=== PATIENT | female | born 1990 | race Caucasian/White ===

== ENCOUNTER 2022-01-01 18:55 | Inpatient (IN) | payer MEDICAID, SELFPAY ==
--- NOTE | 2022-01-01 19:18 | HP.PCM.OB_ITS ---
HPI - General General Date of Admission: 01/01/22 HPI Narrative LANA SALGUERO, is a 31 F at 38.5 weeks gestation who presents for induction of labor for IUGR. EFW 6%, BLAINE normal. complicated by transfer of care at 36 weeks gestation and bilobed placenta with possible chakraborty mentous insertion seen via ultrasound. Maternal Data Information SUDEEP Calculator Estimated Delivery Date Method Current WG Current Estimate 01/10/22 Manual 38w 5d PFSH PFSH Social History Smoking Status: Former smoker ROS Eyes Eyes: Denies blurry vision, change in vision or spots in vision ENT HEENT: Denies dizziness or headache(s) Cardiovascular Cardiovascular: Denies abdominal pain, chest pain or dyspnea Respiratory/Chest Respiratory/Chest: Denies cough, dyspnea, shortness of breath at rest or shortness of breath with exertion Gastrointestinal Gastrointestinal: Denies abdominal pain, diarrhea or vomiting Genitourinary Genitourinary: Denies change in urinary stream, difficulty urinating or dysuria Musculoskeletal Musculoskeletal: Reports none Integumentary Integumentary: Denies rash Neurologic Neurologic: Denies dizziness, headache(s), memory loss or weakness Psychiatric Psychiatric: Reports none Physical Exam Const alert, oriented x3 and no apparent distress General Appearance: cooperative Orientation / Consciousness: awake Exam Limitations: no limitations HEENT normocephalic Head and Scalp: normal to inspection Eyes General Eye: normal appearance of both eyes Neck full ROM and no lymphadenopathy Lymph Lymphatic: no lymphadenopathy noted Chest inspection of chest normal Resp normal respiratory effort, normal air movement and clear to auscultation bilaterally Effort and Inspection: able to speak in complete sentences and symmetric chest movement Cardio regular rate and regular rhythm GI normal to inspection, nondistended, normoactive bowel sounds Manual OB Exam: presentation cephalic Back/Spine normal ROM Extremity full ROM and no calf tenderness Skin no rashes or lesions noted General Skin Exam: no breakdown Neuro oriented x3 and CN's II-XII intact bilaterally Psych mental status grossly normal and thought process normal Labs Labs Labs: Chlamydia DNA (CHON) Negative (Negative-) Neisseria gonorrhoeae DNA (CHON) Negative (Negative-) O negative Rubella immune HB neg HC neg GBS negative HIV NR Assessment & Plan (1) 38 weeks gestation of : (2) Encounter for induction of labor: (3) IUGR (intrauterine growth restriction): (4) Bilobed placenta: (5) Velamentous insertion of umbilical cord: PLAN: Plan Admit to labor and delivery Cytotec PO every 4 hours Routine labs Start IV fluid and titrate per orders GBS negative Dr. Ghotra notified of admission and is collaborating physician
[2022-01-01 19:43] VITALS: TEMP 36.7
[2022-01-01 19:44] VITALS: BP 118/76; PULSE 81
[2022-01-01] MEDS: Lactated Ringers 1,000 ML 50 ML IV (20:15)
[2022-01-01 20:27] VITALS: BMI 28.1
[2022-01-01 20:35] LABS: Absolute Lymphocyte Count 1.44 X10^3/uL (0.83-4.51); Absolute Neutrophil Count 6.9 X10^3/uL (2.0-7.7); Basophil# 0.02 X10^3/uL; Basophil% 0.2 % (0-1); Eosinophils% 1.1 % (0-5); Hemoglobin 11.5 g/dL (12.0-15.0); Lymphocyte # 1.44 X10^3/ul (0.83-4.51); Lymphocyte % 15.2 % (19-41); Mean Corp Hgb Conc 33.8 g/dL (32-36); Mean Corpuscular Volume 97.4 fL (81-99); Mean Platelet Vol. 11.5 fl (6.2-12.0); Monocyte# 0.95 X10^3/uL; NRBC Flagged by Analyzer 0 % (0-5); Neutrophil # 6.91 X10^3/uL (2.7-7.7); Neutrophil % 73.1 % (47-70); Platelet Count 222 K/mm3 (150-450); RBC Distribution Width SD 45.8 fl (35.1-43.9); Red Blood Count 3.49 M/mm3 (4.2-5.4); White Blood Count 9.5 K/mm3 (4.4-11.0)
[2022-01-01 21:24] VITALS: BP 120/73; PULSE 74; TEMP 36.8; O2SAT 98
[2022-01-01] MEDS: miSOPROStol 25 MCG TABLET PO (21:34)
[2022-01-01] MEDS: Mag Hydrox/Al Hydrox/Simeth 30 ML UDC PO (23:20)
[2022-01-02] VITALS (56 sets, daily range): BP systolic 106–154; BP diastolic 53–110; PULSE 61–100; TEMP 36–38.2; O2SAT 97–100
[2022-01-02] MEDS: miSOPROStol 25 MCG TABLET PO ×2 (01:38→05:51)
[2022-01-02] MEDS: Acetaminophen 500 MG Tablet PO ×2 (06:56→20:47)
[2022-01-02] MEDS: 0.9% Normal Saline Single 100 ML IV.SOLN. INTRA-UTER (07:20)
[2022-01-02] MEDS: 0.9% Saline Lock 10 ML Syringe IV (10:09)
[2022-01-02] MEDS: Oxytocin 30 units/NS 500 ml 30 UNITS/500 ML IV.SOLN IV (10:12)
[2022-01-02] MEDS: fentaNYL 100 MCG/2 ML Ampul IV (14:52)
[2022-01-02] MEDS: LACTATED RINGERS 500 ML 999 ML IV ×2 (15:43→18:21)
[2022-01-02] MEDS: fentaNYL-bupivacaine (epidural) 100 ML BAG EPIDURAL ×2 (16:36→20:52)
[2022-01-02] MEDS: Lactated Ringers 1,000 ML 200 ML IV (17:45)
[2022-01-02] MEDS: DiphenhydrAMINE 50 MG/ML Syringe 25 MG IV (20:50)
[2022-01-02] MEDS: Mag Hydrox/Al Hydrox/Simeth 30 ML UDC PO (21:16)
[2022-01-03] VITALS (33 sets, daily range): BP systolic 102–119; BP diastolic 53–74; PULSE 77–108; RESP 16–18; TEMP 36.9–38.9; O2SAT 97–99
--- NOTE | 2022-01-03 | PLAC_PTH ---
PATIENT: LANA SALGUERO LOC: [facility] U#:[id number] AGE/SX: 31/F ROOM: [facility] RE01/01/[address]: Pamela Barrios CNM : 1990 BED: 1 DIS: 01/04/2022 SPEC #: [id number] RECD: 01/03/22 04:45 STATUS: GARY JAGDISH #: [id number] JUAN: 01/03/22 00:[address]: Pamela Barrios DEPT: SURGICAL PATHOLOGY RECD BY: Alexander Geronimo Tissues: Placenta, NOS Procedures: Surgery Specimen Level V HEADER OPERATION: Vaginal delivery PRE-OP DIAGNOSIS: Labor TISSUE SUBMITTED: Placenta MICROSCOPIC DIAGNOSIS Placenta: Placental disc - third trimester placenta (285 gm). - Focal acute vasculitis of subamniotic blood vessels. Membranes ? acute chorioamnionitis. Umbilical cord - three blood vessels and focal minimal acute funisitis. - Marginal insertion. SJ:mouna 01/04/2022 MICROSCOPIC DESCRIPTION Slides are reviewed. GROSS DESCRIPTION SPECIMEN: PLACENTA / CLINICAL INFORMATION: A. Weight: 2.335 kg B. Gestational Age: 39 weeks C. Sex: Female PLACENTAL WEIGHT (POST FIXATION): 285 gm PLACENTAL DIMENSIONS: 17 x 13 x 2.5 cm PLACENTAL SHAPE: Usual ovoid PLACENTAL WEIGHT FOR GESTATIONAL AGE: <10th percentile MEMBRANES - Present A. Insertion: Marginal B. Site of rupture from edge: At edge of placental disc C. Color of membrane: Cheema-mcduffie D. Abnormalities: None UMBILICAL CORD - Present A. Color: Cheema-mcduffie B. Insertion: Marginal C. Length: 18 cm D. Diameter: 1.2 cm E. Number of vessels: Three F. Abnormalities: None PLACENTAL DISC - Present A. Color of surface: Cheema-mcduffie B. surface abnormalities: None C. Maternal cotyledons: Intact with minimal tears D. Attached retro placental clot: No clot E. Cut surface: Dark red and spongy F. Lesions: None G. Separate clot: Absent SECTIONS SUBMITTED: 1. Umbilical cord ( end notched) 2. Umbilical cord, placental end 3. Membrane roll 4. Placental disc, and maternal surfaces 5. Placental disc, and maternal surfaces 6. Placental disc, and maternal surfaces AM:mouna 01/03/2022 TC:2 CPT: 26161
[2022-01-03] MEDS: Ondansetron 4 MG/2 ML Vial IV (01:14)
[2022-01-03] MEDS: Lactated Ringers 1,000 ML 200 ML IV (01:14)
[2022-01-03] MEDS: Oxytocin 30 units/NS 500 ml 30 UNITS/500 ML IV.SOLN 334 UNITS IV (02:05)
--- NOTE | 2022-01-03 02:30 | OP.PCM_ITS ---
Assessment & Plan (1) 38 weeks gestation of : (2) Vacuum-assisted vaginal delivery: (3) Maternal exhaustion complicating labor and delivery: (4) Second degree perineal laceration: Maternal Data Information SUDEEP Calculator Estimated Delivery Date Method Current WG Current Estimate 01/10/22 Manual 39w 0d Final SUDEEP: 01/10/22 Gestational age: 39 0/7 Vaginal Delivery Maternal Presentation Maternal Presentation: Medically Indicated Induction Type of Induction: Pitocin, Streeter Bulb, Amniotomy and Cytotec Medical Reason for Induction: - (suspected IUGR) Operative Information Date of Procedure: 01/03/22 Pre-Operative Diagnosis: maternal exhuastion Post-Operative Diagnosis: same Surgery / Procedure Performed: Vacuum Assisted Vaginal Delivery (low) Type of Anesthesia: Epidural Special Medications: none Drain: - (none) Estimated Blood Loss: 300 Time of Delivery: 02:03 Findings Description of Procedure: The patient was complete and pushing for almost 4 hours. Her contractions became an adequate and very spaced out when her IV infiltrated and Pitocin had to be stopped. IV was eventually restarted. Patient was giving good maternal pushing efforts at the beginning of pushing but towards the end they were inadequate because of complete exhaustion. The position was ADORE. Station was plus 4 out of 5. There is small amount of caput. Estimated weight was less than 3000 g by ultrasound. Pelvis was clinically adequate. Epidural was adequate. Streeter catheter had been removed at the beginning of pushing. Patient was expelling some urine during pushing. I discussed with the patient option of versus trial of low vacuum-assisted vaginal delivery. Patient and partner agreed to proceed with attempted vacuum. The vacuum was placed on the flexion point and vacuum created 550 mmHg. I pulled with 1 pull with 1 contraction and the vacuum was removed with no pop offs. The remainder the head was delivered with maternal pushing efforts only. The remainder the infant was delivered in less than 15 seconds without any significant traction. A vigorous female was delivered ADORE over a second-degree perineal laceration. T he Pitocin infusion was initiated for active management of the third stage. The cord was clamped and cut after 1 minute. The infant was attended to by the waiting nursing staff. The placenta was delivered spontaneously and intact. The cervix and vagina were intact. The second-degree perineal laceration was repaired with 2-0 Vicryl suture in a running standard fashion. Sponge and needle counts were correct. A vaginal sweep was completed by me. Presentation: ADORE Amniotic Membrane Rupture Type: Artificial Amniotic Fluid Description: Clear Placental Delivery Description: Spontaneous Placenta Disposition: Sent to Pathology Cord Vessel Description: 3 Vessels Cord Entanglement: None Cord Gases: ABG and VBG Infant A Gender: Female (Preet- placenta w/ accessory lobe, marginal cord insertion) (1 minute): 9 (5 minute): 9 Delayed Cord Clamping: Yes Post Vaginal Delivery Medications Given After Delivery: IV Pitocin Episiotomy Description: None Laceration: 2nd degree Complication Complications: None Admit VTE Documentation VTE Present on Admission: No VTE Pharm Prophylaxis Ordered: No Reason Prophylaxis Not Ordered: Procedure Not Indicated
[2022-01-03] MEDS: Ibuprofen 600 MG Tablet PO ×3 (03:36→18:35)
[2022-01-03] MEDS: Benzocaine/Lanolin/Aloe Vera 1 SPRAY EACH TOPICAL (03:37)
[2022-01-03 04:56] LABS: Pathology Specimen OB SEE PATHOLOGY REPORT
[2022-01-03] MEDS: Acetaminophen 500 MG Tablet 1000 MG PO ×2 (12:36→18:35)
[2022-01-04] MEDS: Ibuprofen 600 MG Tablet PO ×2 (01:10→07:42)
[2022-01-04] MEDS: Acetaminophen 500 MG Tablet 1000 MG PO ×2 (01:10→07:42)
[2022-01-04 01:18] VITALS: BP 109/64; PULSE 78; RESP 18; TEMP 36.9; O2SAT 98
--- NOTE | 2022-01-04 07:20 | NURSING ---
bedside report given to Regan Ballesteros RN and Javi Lopez RN who are assuming care of pt at this time
[2022-01-04 08:54] VITALS: BP 102/67; PULSE 81; RESP 18; TEMP 36.6; O2SAT 94
--- NOTE | 2022-01-04 12:40 | PCM.PN.OB ---
Subjective Subjective Denies complaints Objective Data Objective Data Vital Signs: Vital Signs Temp Pulse Resp BP Pulse Ox O2 Del Method 97.8 F 81 18 102/67 94 Room Air 01/04/22 08:54 01/04/22 08:54 01/04/22 08:54 01/04/22 08:54 01/04/22 08:54 01/04/22 08:54 Oxygen Delivery Method Room Air Weight: 158 lb 12.8 oz Body Mass Index (BMI) 28.1 Intake & Output: Intake and Output for Last 24 Hours 01/02/22 01/03/22 01/04/22 23:59 23:59 23:59 Intake Total 2594.73 / 2594.73 746.75 / 746.75 Output Total 600 / 600 200 / 200 Balance 1994.73 / 1993.73 546.75 / 546.75 Lab / Micro Data Result Diagrams: 01/01/22 20:15 Micro: Microbiology 01/01/22 20:15 Nasal Secretion SARS-CoV-2 Antigen (Rapid) - Final Physical Exam Const alert, oriented x3 and no apparent distress HEENT normocephalic GI soft to palpation, non-tender and non-distended GI Narrative: fundus firm, mid & below umbilicus Extremity normal to inspection and no calf tenderness Assessment & Plan (1) Vacuum-assisted vaginal delivery: COMMENT: PPD#2 PLAN: D/c home
--- NOTE | 2022-01-04 12:41 | DCINST_ITS ---
Discharge Instructions Diet Discharge Diet: No restrictions Activity Discharge Activity: May Shower May resume sexual activity in: 6 weeks Weight Bearing Status: Weight bearing as tolerated Dressing / Incision Call your doctor if you observe: Fever of 101 or Higher, Coldness, Increased Pain, Change in Color, Inability to urinate, Inability to have a bowel movement, Using more than 1 pad per hour, Shortness of breath, Dizziness, Fainting spells, Chest pain, Increased palpitations (irregular heartbeat), Calf discomfort and Uncontrolled pain Follow Up Care Please Follow Up With: Arsh Gutierres MD When: Follow up in 2 and 6 weeks for visits. Test Results: Test results from this visit will be discussed in further detail at your follow- up appointment, if applicable. Discharge Plan Admission Admit Date/Time: 01/01/22 18:55 Primary Reason for Your Visit: Vaginal delivery Attending Provider: Pamela Barrios Discharge Orders/Prescriptions Prescriptions: New acetaminophen 500 mg Tablet 1,000 mg PO Q6H PRN PRN (Reason: Pain 1-10 Or Fever) Qty: 0 0RF ibuprofen 600 mg Tablet 600 mg PO Q6H PRN PRN (Reason: Pain Score 1-3) Qty: 0 0RF Continued [id number] 1 mg Tablet 1 tab PO DAILY Disposition Disposition (needs filled in before D/C Order can be placed): Home, Self Care
[2022-01-04 13:52] VITALS: BP 122/76; PULSE 87; RESP 16; TEMP 36.7; O2SAT 98
== END 2022-01-04 14:20 | disposition home or self-care (01) | DRG 560 ==
PROVIDERS: Admitting Provider Advanced Practice Midwife; Visit Provider Advanced Practice Midwife
DX: O36.5930 Maternal care for other known or suspected poor fetal growth, third trimester, not applicable or unspecified (principal); Z37.0 Single live birth; O43.123 Velamentous insertion of umbilical cord, third trimester; O43.193 Other malformation of placenta, third trimester; O70.1 Second degree perineal laceration during delivery; O75.81 Maternal exhaustion complicating labor and delivery; Z3A.38 38 weeks gestation of pregnancy; Z87.891 Personal history of nicotine dependence; Z28.310 Unvaccinated for COVID-19; Z28.9 Immunization not carried out for unspecified reason
CPT/HCPCS: 59025; 59050; 85025; 85461; 86850; 86900; 86901; 87426; 88307; 90384; 99218; 99406; J7120; A4216; G0378; J2405; J2790

== ENCOUNTER 2025-03-27 19:38 | Emergency (ER) | payer MEDICAID, SELFPAY ==
[2025-03-27 19:38] VITALS: BP 111/77; PULSE 64; RESP 14; TEMP 36.8; O2SAT 100; BMI 22.5
--- NOTE | 2025-03-27 20:00 | US_ITS ---
PROCEDURE: TRANSVAGINAL W/PREG US 03/27/2025 REASON FOR EXAM: VAG BLEEDING, PREG 12 WEEKS TECHNIQUE: Procedure Code: [id number] Modality: US Procedure: TRANSVAGINAL W/PREG US COMPARISON: None available. FINDINGS The uterus measures 11.4 x 9.0 x 7.0 cm. A gestational sac is identified within the uterus. The mean sac diameter measures 5.7 cm and corresponds to a gestational age of 11 weeks 5 days. Within this gestational sac, a pole and yolk sac are identified. The crown rump length measures 28 mm and corresponds to a gestational age of 9 weeks 3 days. Real-time examination could not detect any cardiac activity. The right ovary measures 2.8 x 2.2 x 2.0 cm and the left ovary measures 1.9 x 1.6 x 1.3 cm. Right ovarian cyst measures 1.9 x 2.1 x 1.2 cm. No adnexal masses are seen. There is no fluid in the cul-de-sac. US/Transvaginal w/Preg US IMPRESSION: Intrauterine gestation with mean sac diameter corresponding to a gestational ag e of 11 weeks 5 days and a pole corresponding to a gestational age of 9 weeks 3 days. No cardiac activity could be detected. Findings are diagnostic of failure. Reading [facility]
[2025-03-27 20:17] LABS: Hematocrit 33.8 % (37-47); Hemoglobin 11.2 g/dL (12.0-15.0); Immature Granulocytes Count 0.020 X10^3/uL (0.0-0.0); Mean Corp Hgb Conc 33.1 g/dL (32-36); Mean Corpuscular Volume 92.6 fL (81-99); Mean Platelet Vol. 10.1 fl (6.2-12.0); NRBC Flagged by Analyzer 0 % (0-5); Platelet Count 259 K/mm3 (150-450); RBC Distribution Width CV 12.4 % (11.6-14.6); RBC Distribution Width SD 42.5 fl (35.1-43.9); Red Blood Count 3.65 M/mm3 (4.2-5.4); White Blood Count 8.9 K/mm3 (4.4-11.0)
[2025-03-27 20:27] LABS: Mucous, Urine 0 SEEN /hpf (<or=2+)
--- OUTSIDE RECORDS SUMMARY | 2025-03-27 20:30 | XMS RPT_ITS | CCD ---
Author Organization [facility] Care Team Providers Care Event Coordinator Marketing And Sales Name Role Phone Unavailable Primary Care Provider ANT Gastelum Attending Unavailable Unavailable Primary Care Provider Pamela Morrow Attending Unavailable Pamela Barrios Admitting Unavailable Unavailable Primary Care Provider LUIS Taylor Referring Unavailable PAUL QUEZADA Attending Unavailable PAMELA BARRIOS Attending Unavailable JOETSPAMELA Referring Unavailable HAURY, LUIS Attending Unavailable HASANGEETA, LUIS Referring Unavailable HAURY, LUIS Referring Unavailable HAURY, LUIS Referring Unavailable HAURY, LUIS Referring Unavailable HAURY, LUIS Referring Unavailable Medications Current Medications Medication Drug Class(es) Dates Sig (Normalized) Sig (Original) acetaminophen 500 mg oral tablet (15 sources) Start: 01-04-2022 take 1000 mg by mouth every six hours as needed Acetaminophen Active 1000 MG PO EVERY 6 HOURS NEEDED 0 January 04, 2022 12:00am End: 01-27-2024 acetaminophen (TYLENOL ORAL) Take by mouth. 01/27/2024 Discontinued acetaminophen (T YLENOL ORAL) Take by mouth. 0 Active Comment on above: Take by mouth. aspirin 81 mg delayed release oral tablet (7 sources) Platelet Aggregation Inhibitor, Nonsteroidal Anti-inflammatory Drug Start: 04-06-20 End: 04-06-20 24 take 1 tablet by mouth once daily for depression aspirin, enteric coated (ECOTRIN LOW STRENGTH) 81 mg EC tablet Indications: Encounter for supervision of high risk in first trimester, antepartum , with uncertain dates in first trimester , History of intrauterine growth restriction in prior , currently , History of depression Take 1 tablet by mouth once daily. 90 tablet 3 04/06/2024 Active ibuprofen 600 mg oral tablet (1 source) Nonsteroidal Anti-inflammatory Drug Start: 01-05-20 take 600 mg by mouth every six hours as needed Ibuprofen Active 600 MG PO EVERY 6 HOURS NEEDED 0 January 04, 2022 12:00am Bzlngabz-Cab-Hg-Fa (1 source) Start: 01-02-20 take 1 tablet by mouth once daily Zphoferk-Vya-Ey-Fa Active 1 TABLET PO DAILY January 01, 2022 12:00am vit/iron fum/folic ac ( 1 + 1 ORAL) (6 sources) vit/iro n fum/folic ac ( 1 + 1 ORAL) Active Completed/Discontinued Medications Medication Drug Class(es) Dates Sig (Normalized) Sig (Original) azelastine hydrochloride 0.137 mg/actuat metered dose nasal spray (6 sources) Histamine-1 Receptor Antagonist Start: 02-10-2024 End: 04-23-2024 take 2 spray(s) nasal route twice daily azelastine 0.1% nasal spray instill 2 sprays into each nostril twice a day 02/10/2024 04/23/2024 Discontinued estradiol 0.1 mg/ml vaginal cream (12 sources) Estrogen Start: 02-13-2022 End: 01-27-2024 estradiol (ESTRACE) 0.01 % (0.1 mg/gram) vaginal cream apply 1/4 inch of cream to vaginal introitus qhs for 12 weeks 42.5 g 02/13/2022 01/27/2024 Discontinued Comment on above: apply 1/4 inch of cr eam to vaginal introitus qhs for 12 weeks ketotifen 0.25 mg/ml ophthalmic solution (6 sources) Histamine-1 Receptor Inhibitor Start: 02-10-2024 End: 04-23-2024 take 1 drop(s) into the eye(s) twice daily ZADITOR 0.025 % (0.035 %) ophthalmic solution instill 1 drop INTO AFFECTED EYE(S) twice a day if needed for allergies 02/10/2024 04/23/2024 Discontinued levocetirizine dihydrochloride 5 mg oral tablet (6 sources) Histamine-1 Receptor Antagonist Start: 02-10-2024 End: 04-23-2024 take 1 tablet by mouth once daily in the evening levocetirizine 5 mg tablet take 1 tablet by mouth once daily every evening 02/10/2024 04/23/2024 Discontinued lidocaine 25 mg/ml / prilocaine 25 mg/ml topical cream (3 sources) Antiarrhythmic, Amide Local Anesthetic Start: 05-10-2022 End: 01-27-2024 lidocaine-prilocain e (EMLA) 2.5-2.5 % cream Indications: Second degree perineal laceration during delivery , Perineal discomfort in female Apply to affected area as needed. 30 g 1 05/10/2022 01/27/2024 Discontinued Comment on above: Apply to affected ar ea as needed. Loratadine (20 sources) End: 01-27-2024 loratadine (CLARITIN ORAL) Take by mouth. 01/27/2024 Discontinued loratadine (CLAR ITIN ORAL) Take by mouth. 0 Active Comment on above: Take by mouth. norethindrone 0.35 mg oral tablet (14 sources) Start: 02-13-2022 End: 01-27-2024 take 1 tablet by mouth once daily Norethindrone, Contraceptive, (ORTHO MICRONOR) 0.35 mg tablet Take 1 tablet by mouth once daily. 28 tablet 1 04/26/2022 01/27/2024 Discontinued Comment on above: Take 1 tablet by steven th once daily. prental multivitamin 27 mg iron- 800 mcg tablet (20 sources) End: 01-27-2024 take 1 tablet by mouth once daily prental multivitamin 27 mg iron- 800 mcg tablet Take 1 tablet by mouth once daily. 01/27/2024 Discontinued take 1 tablet by mouth once mindy y prental multivitamin 27 mg iron- 800 mcg tablet Take 1 tablet by mouth once daily. 0 Active Comment on above: Take 1 tablet by steven th once daily. Problems Active Problems Problem Classification Problem Date Documented Date Episodic/Chronic Abdominal pain (1 source) Vaginal pain; Translations: [Pelvic and perineal pain] Episodic Allergic reactions (7 sources) H/O: non-drug allergy; Translations: [Other allergy status, other than to drugs and biological substances] Onset: 04-06-2024 04-06-2024 Episodic Immunizations and screening for infectious disease (2 sources) Patient encounter status; Translations: [Encounter for screening for human papillomavirus (HPV)] Onset: 03-03-2025 01-27-2024 Episodic OB-related trauma to perineum and vulva (2 sources) Second degree perineal laceration; Translations: [Second degree perineal laceration during delivery] Episodic Other complications of ; puerperium affecting management of mother (1 source) Complication occurring during labor and delivery; Translations: [Maternal exhaustion complicating labor and delivery] Episodic Other complications of ; puerperium affecting management of mother (1 source) Maternal exhaustion complicating labor and delivery; Translations: [Other complications of labor and delivery, unspecified as to episode of care or not applicable] Episodic Other complications of (2 sources) Abnormal placenta affecting management of mother; Translations: [Other malformation of placenta, third trimester] Episodic Other complications of (2 sources) Other malformation of placenta, unspecified trimester; Translations: [Bilobed placenta] Episodic Other complications of (1 source) Vacuum assisted vaginal delivery; Translations: [Outcome of delivery, unspecified] Episodic Other complications of (1 source) Outcome of delivery, unspecified; Translations: [Forceps or vacuum extractor delivery without mention of indication, delivered, with or without mention of antepartum condition] Episodic Other complications of (8 sources) Vomiting of , unspecified; Translations: [Unspecified vomiting of , unspecified as to episode of care or not applicable] Onset: 04-06-2024 Resolved: 04-23-2024 04-06-2024 Episodic Other complications of (1 source) Uncertain viability of ; Translations: [ with inconclusive viability, not applicable or unspecified] 04-17-2024 Episodic Other female genital disorders (7 sources) Lesion of vulva; Translations: [Other specified noninflammatory disorders of vulva and perineum] Onset: 04-06-2024 04-06-2024 Episodic Other and delivery including normal (20 sources) ; Translations: [Encounter for supervision of normal , unspecified, unspecified trimester] Onset: 12-14-2021 Resolved: 04-23-2024 Episodic Other screening for suspected conditions (not mental disorders or infectious disease) (1 source) Cancer cervix screening status; Translations: [Encounter for screening for malignant neoplasm of cervix] 01-27-2024 Episodic Other skin disorders (4 sources) Finding of pelvic region of trunk; Translations: [Granulomatous disorder of the skin and subcutaneous tissue, unspecified] Episodic Residual codes; unclassified (2 sources) Gestation period, 36 weeks; Translations: [36 weeks gestation of ] Episodic Residual codes; unclassified (2 sources) Gestation period, 38 weeks; Translations: [38 weeks gestation of ] Episodic Residual codes; unclassified (1 source) 38 weeks gestation of ; Translations: [ state, incidental] Episodic Residual codes; unclassified (1 source) Reduced libido; Translations: [Decreased libido] 01-27-2024 Episodic Residual codes; unclassified (2 sources) Gestation period, 4 weeks; Translations: [Less than 8 weeks gestation of ] 04-06-2024 Episodic Residual codes; unclassified (7 sources) H/O: depression; Translations: [Personal history of other complications of , childbirth and the puerperium] Onset: 04-06-2024 04-06-2024 Episodic Residual codes; unclassified (1 source) 8 weeks gestation of ; Translations: [8 weeks gestation of (HCC)] Onset: 03-03-2025 Episodic Residual codes; unclassified (2 sources) Personal history of other complications of , childbirth and the puerperium; Translations: [History of vacuum extraction assisted delivery] Onset: 04-06-2024 Episodic Short gestation; low weight; and growth retardation (2 sources) growth restriction; Translations: [ growth restriction] Episodic Spontaneous (1 source) Incomplete miscarriage with complication; Translations: [Incomplete spontaneous without complication] 04-23-2024 Episodic Umbilical cord complication (2 sources) Velamentous insertion of umbilical cord; Translations: [Velamentous insertion of umbilical cord, unspecified trimester] Episodic Unclassified (5 sources) [facility] Education - COMMON Onset: 04-06-2024 04-06-2024 Unclassified (5 sources) Education - [place] Onset: 04-06-2024 04-06-2024 Past or Other Problems Problem Classification Problem Date Documented Date Episodic/Chronic Diabetes mellitus without complication (15 sources) Increased glucose level; Translations: [Other abnormal glucose] Onset: 12-19-2021 Resolved: 01-16-2022 12-19-2021 Episodic Hemorrhage during ; abruptio placenta; placenta previa (2 sources) Antepartum hemorrhage; Translations: [Hemorrhage in early , unspecified] Onset: 04-17-2024 04-16-2024 Episodic Other complications of (11 sources) High risk ; Translations: [Supervision of high risk , unspecified, third trimester] Onset: 04-06-2024 Resolved: 04-23-2024 Episodic Other complications of (16 sources) Poor growth affecting management; Translations: [Maternal care for other known or suspected poor growth, first trimester, fetus 3] Onset: 12-19-2021 Resolved: 01-16-2022 12-19-2021 Episodic Other complications of (15 sources) Disease caused by 2019-nCoV; Translations: [Other viral diseases complicating , first trimester] Onset: 12-19-2021 Resolved: 01-16-2022 12-19-2021 Episodic Other complications of (20 sources) RhD negative; Translations: [Other specified related conditions, unspecified trimester] Onset: 12-19-2021 Resolved: 04-23-2024 12-19-2021 Episodic Other complications of (8 sources) Supervision of with other poor reproductive or obstetric history, unspecified trimester; Translations: [ with other poor obstetric history] Onset: 04-06-2024 Resolved: 04-23-2024 04-06-2024 Episodic Other complications of (1 source) Supervision of high risk , unspecified, first trimester; Translations: [Encounter for supervision of high risk in first trimester, antepartum] Onset: 04-06-2024 Episodic Residual codes; unclassified (7 sources) H/O: Disorder; Translations: [Personal history of other complications of , childbirth and the puerperium] Onset: 04-06-2024 Resolved: 04-23-2024 04-06-2024 Episodic Residual codes; unclassified (7 sources) H/O: miscarriage; Translations: [Personal history of other complications of , childbirth and the puerperium] Onset: 04-06-2024 Resolved: 04-23-2024 04-06-2024 Episodic Residual codes; unclassified (1 source) Less than 8 weeks gestation of ; Translations: [4 weeks gestation of ] Onset: 04-06-2024 Episodic Screening and history of mental health and substance abuse codes (1 source) Personal history of other mental and behavioral disorders; Translations: [History of depression] Onset: 04-06-2024 Episodic Sexually transmitted infections (not HIV or hepatitis) (20 sources) Human papillomavirus deoxyribonucleic acid test positive, high risk on cervical specimen; Translations: [Cervical high risk human papillomavirus (HPV) DNA test positive] Onset: 12-20-2021 12-20-2021 Episodic Results Test Name Value Interpretation Reference Range Facil ity CBC panel Auto (Bld)on 03-17 Erythrocyte distribution width (RBC) [Ratio] 12.2 % Normal 11.5-15.0 [facility] Comment on above: Order Comment: Speci men Type: BLOOD SPECIMENOrdering Facility: [facility] Address: [address] [place] [address] Performed By: #### 5 8410-2 ####[facility] [id number] [place] [address] [place] Hematocrit (Bld) [Volume fraction] 35.3 % Low 36.0-46.0 [facility] Comment on above: Order Comment: Speci men Type: BLOOD SPECIMENOrdering Facility: [facility] Address: [address] [place] [address] Performed By: #### 5 8410-2 ####[facility] [id number] [place] [address] [place] Hemoglobin (Bld) [Mass/Vol] 12.3 g/dL Normal 11.5-15.5 [facility] Comment on above: Order Comment: Speci men Type: BLOOD SPECIMENOrdering Facility: [facility] Address: [address] [place] [address] Performed By: #### 5 8410-2 ####[facility] [id number] [place] [address] [place] MCH (RBC) [Entitic mass] 31.1 pg Normal 26.0-34.0 [facility] Comment on above: Order Comment: Speci men Type: BLOOD SPECIMENOrdering Facility: [facility] Address: [address] [place] [address] Performed By: #### 5 8410-2 ####[facility] JAREDWKASEYLIA [id number] [place] [address] [place] MCHC (RBC) [Mass/Vol] 34.8 g/dL Normal 30.5-36.0 [facility] Comment on above: Order Comment: Speci men Type: BLOOD SPECIMENOrdering Facility: [facility] Address: [address] [place] [address] Performed By: #### 5 8410-2 ####[facility] [id number] [place] [address] [place] MCV (RBC) [Entitic vol] 89.4 fL Normal 80.0-100.0 [facility] Comment on above: Order Comment: Speci men Type: BLOOD SPECIMENOrdering Facility: [facility] Address: [address] [place] [address] Performed By: #### 5 8410-2 ####[facility] [id number] [place] [address] [place] Nucleated RBC (Bld) [#/Vol] 10*3/uL Normal <0.01 [facility] Comment on above: Order Comment: Speci men Type: BLOOD SPECIMENOrdering Facility: [facility] Address: [address] [place] [address] Performed By: #### 5 8410-2 ####[facility]ITALCAR[facility]LEA [id number] [place] [address] [place] Platelet mean volume (Bld) [Entitic vol] 10.0 fL Normal 9.0-12.7 [facility] Comment on above: Order Comment: Speci men Type: BLOOD SPECIMENOrdering Facility: [facility] Address: [address] [place] [address] Performed By: #### 5 8410-2 ####[facility] [id number] [place] [address] [place] Platelets (Bld) [#/Vol] 298 10*3/uL Normal 150-400 [facility] Comment on above: Order Comment: Speci men Type: BLOOD SPECIMENOrdering Facility: [facility] Address: [address] [place] [address] Performed By: #### 5 8410-2 ####[facility] [id number] [place] [address] [place] RBC (Bld) [#/Vol] 3.95 10*6/uL Normal 3.90-5.20 [facility] Comment on above: Order Comment: Speci men Type: BLOOD SPECIMENOrdering Facility: [facility] Address: [address] [place] [address] Performed By: #### 5 8410-2 ####[facility] [id number] [place] [address] [place] WBC (Bld) [#/Vol] 7.96 10*3/uL Normal 3.70-11.00 [facility] Comment on above: Order Comment: Speci men Type: BLOOD SPECIMENOrdering Facility: [facility] Address: [address] [place] [address] Performed By: #### 5 8410-2 ####[facility] [id number] [place] [address] [place] HBV surface Ag Ser Qlon HBV surface Ag Ql (S) Negative Normal Negative [facility] Comment on above: Order Comment: Speci men Type: BLOOD SPECIMENOrdering Facility: [facility] Address: [address] [place] [address] Performed By: #### 5 195-3, 64357-9, 08646-3 ####[facility] LABCLIA [id number] [place] [address] [place] HCV Ab Ser Qlon 03-17-2025 HCV Ab Ql (S) Negative Normal Negative [facility] Comment on above: Order Comment: Speci men Type: BLOOD SPECIMENOrdering Facility: [facility] Address: [address] [place] [address] Result Comment: The result suggests no evidence of infection with Hepatitis C virus. Should recent infection be suspected, repeat testing may be considered 4-6 weeks after this draw. Performed By: #### 1 6128-1 ####[facility] LABCLIA [id number] [place] [address] [place] HIV 1+2 Ab IA Qlon 5 HIV 1 and 2 Ab IA.rapid Nom (S/P/Bld) Normal [facility] Comment on above: Order Comment: Speci men Type: BLOOD SPECIMENOrdering Facility: [facility] Address: [address] [place] [address] Result Comment: Test not indicated. Performed By: #### 5 195-3, 82008-0, 47390-3 ####[facility] LABCLIA [id number] [address] [place] HIV 1+2 Ab+HIV1 p24 Ag IA Ql Non-Reactive Normal Nonreactive [facility] Comment on above: Order Comment: Speci men Type: BLOOD SPECIMENOrdering Facility: [facility] Address: [address] [place] [address] Performed By: #### 5 195-3, 73878-6, 71037-9 ####[facility] LABCLIA [id number] [place] [address] [place] HIV immunoassay testing algorithm interpretation (S/P/Bld) [Interp] Normal [facility] Comment on above: Order Comment: Speci men Type: BLOOD SPECIMENOrdering Facility: [facility] Address: [address] [place] [address] Result Comment: No e vidence of HIV-1 or HIV-2 infection. Should recent infection be suspected, repeat testing may be considered 2-3 weeks after this draw. [place] Rev. Code 3701.243(E): This information has been disclosed to you from confidential records protected from disclosure by state law. You shall make no further disclosure of this information without the specific, written, and informed release of the individual to whom it pertains or as otherwise permitted by state law. A general authorization for the release of medical or other information is not sufficient for the purpose of the release of HIV test results or diagnoses. Performed By: #### 5 195-3, 88052-1, 77910-3 ####[facility] LABCLIA [id number] [address] HbA1c (Bld)on 03-17-2025 Average glucose Estimated from glycated hemoglobin (Bld) [Mass/Vol] 97 mg/dL Normal [facility] Comment on above: Order Comment: Speci men Type: BLOOD SPECIMENOrdering Facility: [facility] Address: [address] [place] [address] Result Comment: eAG: (Estimated average glucose) is a calculated value from HgbA1c and is direct marketing representative of the average blood glucose level in the last 2-3 month period. Performed By: #### 5 5454-3 ####[facility] LABCLIA [id number] [address] HbA1c (Bld) [Mass fraction] 5.0 % Normal 4.3-5.6 [facility] Comment on above: Order Comment: Speci men Type: BLOOD SPECIMENOrdering Facility: [facility] Address: [address] [place] [address] Result Comment: [place] Diabetes Association guidelines indicate that patients with HgbA1c in the range 5.7-6.4% are at increased risk for development of diabetes, and intervention by lifestyle modification may be beneficial. HgbA1c greater or equal to 6.5% is considered diagnostic of diabetes. Performed By: #### 5 5454-3 ####[facility] LABCLIA [id number] [address] [id number] PLUSon 03-17-2025 Cell-free DNA./Cell-free DNA.total Dosage of chromosome-specific cfDNA (cfDNA) [Molar fraction] 14% Normal [facility] Comment on above: Order Comment: Speci men Type: BLOOD SPECIMENOrdering Facility: [facility] Address: [address] [place] [address] Performed By: #### M AT21 ####[facility] LABCLIA [id number] [place] [address] Chr 13+18+21+X+Y aneuploidy Dosage of chromosome-specific cfDNA Ql (cfDNA) Negative Normal [facility] Comment on above: Order Comment: Speci men Type: BLOOD SPECIMENOrdering Facility: [facility] Address: [address] [place] [address] Performed By: #### M AT21 ####[facility] LABCLIA [id number] [place] [address] Chr 21 trisomy Dosage of chromosome-specific cfDNA Ql (cfDNA) Negative Normal [facility] Comment on above: Order Comment: Speci men Type: BLOOD SPECIMENOrdering Facility: [facility] Address: [address] [place] [address] Performed By: #### M AT21 ####[facility] LABCLIA [id number] [place] [address] Chr X and Y aneuploidy risk Sequencing Ql (cfDNA) [Interp] Not detected Normal [facility] Comment on above: Order Comment: Speci men Type: BLOOD SPECIMENOrdering Facility: [facility] Address: [address] [place] [address] Result Comment: Not Detected Not Detected Performed By: #### M AT21 ####[facility] LABCLIA [id number] [place] [address] Citation Jose David (Reference lab test) Comment Normal [facility] Comment on above: Order Comment: Speci men Type: BLOOD SPECIMENOrdering Facility: [facility] Address: [address] [place] [address] Result Comment: 1. P kelsi RODAS, et al. Mone Med. 2012;14(3):296-305. 2. Truman PEREZ, et al. Prenat Diag. 2013;33(6):591-597. 3. Brayden C, et al. Clin Chem. 2015 Apr;61(4):608-616. 4. Charlotte RODAS, et al. Mone Med. 2011;13(11):913-920. 5. ACOG/SMFM Practice Bulletin No. 226, Feb 2020. Performed By: #### M AT21 ####[facility] LABCLIA [id number] [place] [address] Gestational age Estimated from conception date Felipe Normal [facility] Comment on above: Order Comment: Speci men Type: BLOOD SPECIMENOrdering Facility: [facility] Address: [address] [place] [address] Performed By: #### M AT21 ####[facility] LABCLIA [id number] [place] [address] GESTATIONALAGE AGE > OR = 9W Yes Normal [facility] Comment on above: Order Comment: Speci men Type: BLOOD SPECIMENOrdering Facility: [facility] Address: [address] [place] [address] Performed By: #### M AT21 ####[facility] LABCLIA [id number] [place] [address] Laboratory comment Jose David (Report) Comment Normal [facility] Comment on above: Order Comment: Nikoi samir Type: BLOOD SPECIMENOrdering Facility: [facility] Address: [address] [place] [address] Result Comment: The MaterniT(R) 21 PLUS laboratory-developed test (LDT) analyzes circulating cell-free DNA from a maternal blood sample. This test is used for screening purposes and not diagnostic. Clinical correlation is recommended. Validation data on twin pregnancies is limited and the ability of this test to detect aneuploidy in higher multiple gestations has not yet been validated. Performed By: #### M AT21 ####[facility] LABCLIA [id number] [place] [address] doggy daycare activities director name Nom (Provider) Comment Normal [facility] Comment on above: Order Comment: Speci men Type: BLOOD SPECIMENOrdering Facility: [facility] Address: [address], [place] [address] Result Comment: This specimen showed an expected representation of chromosome 21, 18 and 13 material. Clinical correlation is suggested. Comment Giovanny Domínguez MD, PhD, Director, [employer] Performed By: #### M AT21 ####[facility] LABCLIA [id number] [place] [address] LIMITATIONS OF THE TEST Comment Normal [facility] Comment on above: Order Comment: Speci men Type: BLOOD SPECIMENOrdering Facility: [facility] Address: [address] [place] [address] Result Comment: Gee gibson the results of these tests are highly reliable, discordant results, including inaccurate sex prediction, may occur due to placental, maternal, or mosaicism or neoplasm; vanishing twin; prior maternal organ transplant; or other causes. These tests are screening tests and not diagnostic; they do not replace the accuracy and precision of diagnosis with CVS or amniocentesis. A patient with a positive test result should be referred for genetic counseling and offered invasive diagnosis for confirmation of test results.[5] The results of this testing, including the benefits and limitations, should be discussed with a qualified healthcare provider. management decisions, including termination of the , should not be based on the results of these tests alone. The healthcare provider is responsible for the use of this information in the management of their patient. Sex chromosomal aneuploidies are not reportable for known multiple gestations. A negative result does not ensure an unaffected nor does it exclude the possibility of other chromosomal abnormalities or defects which are not a part of these tests. An uninformative result may be reported, the causes of which may include, but are not limited to, insufficient sequencing coverage, noise or artifacts in the region, amplification or sequencing bias, or insufficient fraction. These tests are not intended to identify pregnancies at risk for neural tube defects or ventral wall defects. Testing for whole chromosome abnormalities (including sex chromosomes) and for subchromosomal abnormalities could lead to the potential discovery of both and maternal genomic abnormalities that could have major, minor, or no, clinical significance. Evaluating the significance of a positive or a non-reportable result may involve both invasive testing and additional studies on the mother. Such investigations may lead to a diagnosis of maternal chromosomal or subchromosomal abnormalities, which on occasion may be associated with benign or malignant maternal neoplasms. These tests may not accurately identify triploidy, balanced rearrangements, or the precise location of subchromosomal duplications or deletions; these may be detected by diagnosis with CVS or amniocentesis. The ability to report results may be impacted by maternal BMI, maternal weight, maternal systemic lupus erythematosus (SLE) and/or by certain pharmaceutical agents such as low molecular weight heparin (for example: Lovenox(R), Xaparin(R), Clexane(R) and Fragmin(R)). Performed By: #### M AT21 ####Language Learning Class [id number] [place] [address] Monosomy X risk Dosage of chromosome-specific cfDNA Ql (Plasma cell-free+WBC DNA) [Interp] Not detected Normal [facility] Comment on above: Order Comment: Reji dawson Type: BLOOD SPECIMENOrdering Facility: [facility] Address: [address] [place] [address] Performed By: #### M AT21 ####[employer] [id number] [place] [address] NEGATIVE PREDICTIVE VALUE Note Normal [facility] Comment on above: Order Comment: Reji dawson Type: BLOOD SPECIMENOrdering Facility: [facility] Address: [address] [place] [address] Result Comment: The Negative Predictive Value (NPV) for trisomy 21, 18, and 13 is greater than 99%. The NPV for SCA and ESS cannot be calculated as SCA and ESS are only reported when an abnormality is detected. Performed By: #### M AT21 ####[employer] LABOT EnterprisesIA [id number] [place] [address] PERFORMANCE CHARACTERISTICS Note Normal [facility] Comment on above: Order Comment: eRji dawson Type: BLOOD SPECIMENOrdering Facility: [facility] Address: [address] [place] [address] Result Comment: ! Sex ! Accuracy: 99.4% ! ! ! ! Region (associated syndrome) ! Est. Sens# ! Est. Spec ! ! ! ! Trisomy 21 (Down Syndrome) ! 99.1% ! 99.9% ! ! ! ! Trisomy 18 (Hernandez Syndrome) ! >99.9% ! 99.6% ! ! ! ! Trisomy 13 (Patau Syndrome) ! 91.7% ! 99.7% ! ! ! ! Sex Chromosome Aneuploidies## ! 96.2% ! 99.7% ! ! ! * As reported in [facility] database nstd37 [https://www.ncbi.nlm.nih.gov/dbvar/studies/nstd37/ ] # Estimated Sensitivity. Sensitivity estimated across the observed size distribution of each syndrome [per [employer] database nstd37] and across the range of fractions observed in routine clinical NIPT. Actual sensitivity can also be influenced by other factors such as the size of the event, total sequence counts, amplification bias, or sequence bias. ## Felipe gestation only. Performed By: #### M AT21 ####[facility] LABCLIA [id number] [place] [address] POSITIVE PREDICTIVE VALUE N/A Normal [facility] Comment on above: Order Comment: Speci men Type: BLOOD SPECIMENOrdering Facility: [facility] Address: [address] [place] [address] Performed By: #### M AT21 ####[facility] LABCLIA [id number] [place] [id number] Reference Lab Test Method Comment Normal [facility] Comment on above: Order Comment: Speci men Type: BLOOD SPECIMENOrdering Facility: [facility] Address: [address] [place] [address] Result Comment: Circ ulating cell-free DNA was purified from the plasma component of maternal blood. The extracted DNA was then converted into a genomic DNA library for aneuploidy analysis of chromosomes 21, 18, and 13 via next generation sequencing.[1] Optional findings based on the test order include sex chromosome aneuploidy (SCA)[2], and enhanced sequencing series (ESS)[3], which will only be reported on as an additional finding when an abnormality is detected. SCA testing includes information on X and Y representation, while ESS testing includes deletions in selected regions (22q, 15q, 11q, 8q, 5p, 4p, 1p) and trisomy of chromosomes 16 and 22. Performed By: #### M AT21 ####[facility] [employer] [facility] LABCLIA [id number] [place] [address] Service comment (Unsp spec) [Interp] Comment Normal [facility] Comment on above: Order Comment: Speci men Type: BLOOD SPECIMENOrdering Facility: [facility] Address: [address] [place] [address] Result Comment: [employer] is a subsidiary of [employer], using the brand [employer]. This test was developed and its performance characteristics determined by [employer]. It has not been cleared or approved by the Food and Drug Administration. This laboratory is certified under the Clinical Laboratory Improvement Amendments (CLIA) as qualified to perform high complexity clinical laboratory testing and accredited by the [employer] ([employer]). If there is future clinical need for adding MaterniT GENOME testing, this specimen will be available until term. [facility] samples will not be retained beyond 60 days. [facility] patients will have to send a new sample for re-sequencing ([facility] Test Code: 215221). Performed By: #### M AT21 ####[facility] LABCLIA [id number] [place] [address] Sex Dosage of chromosome-specific cfDNA Nom (cfDNA) Comment Normal [facility] Comment on above: Order Comment: Speci men Type: BLOOD SPECIMENOrdering Facility: [facility] Address: [address] [place] [address] Result Comment: Cons istent with Female Performed By: #### M AT21 ####[facility] LABCLIA [id number] [place] [address] Test performance information Jose David (Unsp spec) Comment Normal [facility] Comment on above: Order Comment: Speci men Type: BLOOD SPECIMENOrdering Facility: [facility] Address: [address] [place] [address] Result Comment: The performance characteristics of the MaterniT(R) 21 PLUS laboratory-developed test (LDT) have been determined in a clinical validation study with women at increased risk for chromosomal aneuploidy.[1-4] Performed By: #### M AT21 ####[facility] LABCLIA [id number] [place] [address] Trisomy 13 risk Dosage of chromosome-specific cfDNA Ql (cfDNA) [Interp] Negative Normal [facility] Comment on above: Order Comment: Speci men Type: BLOOD SPECIMENOrdering Facility: [facility] Address: [address] [place] [address] Performed By: #### M AT21 ####[facility] [facility] LABCLIA [id number] [place] [address] Trisomy 18 risk Dosage of chromosome-specific cfDNA Ql (Plasma cell-free+WBC DNA) [Interp] Negative Normal [facility] Comment on above: Order Comment: Speci men Type: BLOOD SPECIMENOrdering Facility: [facility] Address: [address] [place] [address] Performed By: #### M AT21 ####[facility] LABCLIA [id number] [place] [address] RUBELLA IGG ANTIBODYon 03-17 RUBELLA IGG AB, QUAL Positive Normal Positive [facility] Comment on above: Order Comment: Speci men Type: BLOOD SPECIMEN [facility] Address: [address] [place] [address] Result Comment: The result suggests recent or past exposure to Rubella virus or history of Rubella vaccination. Positive result may also be seen due to presence of passively-transferred antibodies. Please correlate with patient's history. Performed By: #### T SPN #### [facility] CLIA [id number] [address] [place] [address] [place] Reagin and Treponema pallidu m IgG and IgM [Interp]on 03-17-2025 T. pallidum IgG+IgM IA Ql (S) Non-Reactive Normal Nonreactive [facility] Comment on above: Order Comment: Speci men Type: BLOOD SPECIMENOrdering Facility: [facility] Address: [address] [place] [address] Performed By: #### 5 195-3, 35393-6, 57964-1 ####[facility] LABCLIA [id number] [place] [address] [place] Reagin+T pallidum IgG+IgM Se rPl-Impon 03-17-2025 Reagin and Treponema pallidum IgG and IgM [Interp] Cannot exclude recent Treponemal infection if specimen collected within 7-10 days after appearance of suspect lesions or 2-3 weeks after an exposure. Clinical correlation is required. Normal [facility] Comment on above: Order Comment: Speci men Type: BLOOD SPECIMENOrdering Facility: [facility] Address: [address] [place] [address] Performed By: #### 5 195-3, 44952-1, 64043-3 ####[facility] LABCLIA [id number] [place] TYPE + SCREEN PRENATALon ABO O Normal [facility] Comment on above: Order Comment: Speci men Type: BLOOD SPECIMEN [facility] Address: [address] [place] [address] Performed By: #### T SPN #### [facility] CLIA [id number] [address] [place] [address] [place] Rh Nom (Bld) Negative Normal [facility] Comment on above: Order Comment: Speci men Type: BLOOD SPECIMEN [facility] Address: [address] [place] [address] Performed By: #### T SPN #### [facility] CLIA [id number] [address] [place] [address] [place] TYPE AND SCREEN EXPIRATION 03/20/2025 23:59 Normal [facility] Comment on above: Order Comment: Speci men Type: BLOOD SPECIMEN [facility] Address: [address] [place] [address] Performed By: #### T SPN #### [facility] CLIA [id number] [address] [place] [address] [place] CNPNon 03-04-2025 CNPN Telephone (HERNANDEZOBA) LANA SALGUERO ([id number]) 1990 F Date Time Provider Department 03/04/25 ITZEL MACARIO During your visit today, we recorded the following information about you: Itzel Macario RN 03/04/2025 12:39 PM Signed 1st risk assessment form submitted March 04, 2025. Itzel Macario RN Allergies As of Date: 03/04/2025 (No Known Allergies) Date Reviewed: 03/03/2025 Reviewed by: Jade Sims LPN - Fully Assessed Reason for Visit: PRAF [4193] Cmt: Initial PRAF Prescriptions as of 03/04/2025 - vit/iron fum/folic ac ( 1 + 1 ORAL) - aspirin, enteric coated (ECOTRIN LOW STRENGTH) 81 mg EC tablet Take 1 tablet by mouth once daily. Problem List As Of Date 03/04/2025 Noted Resolved with care elsewhere, antepar*12/14/2021 01/16/2022 SGA (small for gestational age), , affecti*12/19/2021 01/16/2022 COVID-19 affecting in first trimester*12/19/2021 01/16/2022 Rh negative state in antepartum period (HCC) [O*12/19/2021 Elevated glucose level [R73.09] 12/19/2021 01/16/2022 Cervical high risk HPV (human papillomavirus) t*12/20/2021 with uncertain dates in first trimest*04/06/2024 04/23/2024 Encounter for supervision of high risk pregnanc*04/06/2024 04/23/2024 History of intrauterine growth restriction in p*04/06/2024 04/23/2024 History of depression [Z87.59, Z86.5*04/06/2024 History of placental abnormality [Z87.59] 04/06/2024 04/23/2024 Rh negative state in antepartum period [O26.899*04/06/2024 04/23/2024 History of environmental allergies [Z91.09] 04/06/2024 Nausea and vomiting during [O21.9] 04/06/2024 04/23/2024 History of miscarriage [Z87.59] 04/06/2024 04/23/2024 Vulvar lesion [N90.89] 04/06/2024 Encounter for supervision of normal i*03/03/2025 History of vacuum extraction assisted delivery *03/03/2025 Encounter Status:Closed by ITZEL MACARIO on 03/04/25 Normal [facility] Bacteria Ur Culton Bacteria identified Cx Nom (U) ORGANISM ID: 1 >=100,000 CFU/ml Streptococcus agalactiae (group b streptococcus) Susceptibility testing not performed on beta hemolytic streptococci due to predictable susceptibility to penicillin and other beta lactams. For testing, call Microbiology within 72 hours. Normal [facility] Comment on above: Performed By: #### T SPN #### [facility] CLIA [id number] [address] [place] [address] [place] C. trachomatis+N. gonorrhoea e DNA CHON+probe Ql (Unsp spec)on 03-03-2025 C. trachomatis rRNA CHON+probe Ql (Unsp spec) Not detected Normal Not detected [facility] Comment on above: Order Comment: Speci men Type: SWABOrdering Facility: [facility] Address: [address] [place] [address] Performed By: #### 3 6902-5, TRVAMP ####[facility] LABCLIA [id number] [place] [address] [place] N. gonorrhoeae rRNA CHON+probe Ql (Unsp spec) Not detected Normal Not detected [facility] Comment on above: Order Comment: Speci men Type: SWABOrdering Facility: [facility] Address: [address] [place] [address] Performed By: #### 3 6902-5, TRVAMP ####[facility] LABCLIA [id number] [place] [address] [place] TRICHOMONAS VAGINALIS NAATon 03-03-2025 T. vaginalis DNA CHON+probe Ql (Unsp spec) Not detected Normal Not detected [facility] Comment on above: Order Comment: Speci men Type: SWABOrdering Facility: [facility] Address: [address] [place] [address] Performed By: #### 3 6902-5, TRVAMP ####[facility] LABCLIA [id number] [address] [place] B-HCG SerPl-aCncon 4 HCG.beta subunit Qn 3121.0 m[IU]/mL High <5.0 [facility] Comment on above: Order Comment: Speci men Type: BLOOD SPECIMENOrdering Facility: [facility] Address: [address] [place] [address] Result Comment: THIAGO TITATIVE HCG NORMAL RANGES Weeks of Gestation (Weeks Since LMP) 3 Weeks (5.8-71.2 mIU/mL) 4 Weeks (9.5-750 mIU/mL) 5 Weeks (217-7138 mIU/mL) 6 Weeks (158-32552 mIU/mL) 7 Weeks (3697-097496 mIU/mL) 8 Weeks (40191-911270 mIU/mL) 9 Weeks (94869-125178 mIU/mL) 10 Weeks (31757-147612 mIU/mL) 12 Weeks (99312-876260 mIU/mL) Referenced to 4th IS of [facility] Performed By: #### 2 1198-7 ####[facility] LABCLIA [id number] [address] [place] Yael 04-17-2024 ASHLEY Telephone (GALE) LANA SALGUERO ([id number]) 1990 F Date Time Provider Department 04/17/24 LUIS NOEL During your visit today, we recorded the following information about you: Luis Noel APRN.CNP 04/17/2024 12:02 PM Signed Please notify patient possible septation noted in gestational sac. Sac empty. Ectopic unlikely, but uncertain on viability of . Will await HCG results. Please review bleeding and pain precautions and that I'm thinking of her. Luis Noel APRN.Tanya Morfin RN 04/17/2024 12:08 PM Signed Patient notified. Voiced understanding. Tanya Rosario RN Allergies As of Date: 04/17/2024 (No Known Allergies) Date Reviewed: 04/17/2024 Reviewed by: Rachel Bullock MD - Fully Assessed Reason for Visit: Results [95] Prescriptions as of 04/17/2024 - vit/iron fum/folic ac ( 1 + 1 ORAL) - levocetirizine 5 mg tablet take 1 tablet by mouth once daily every evening - azelastine 0.1% nasal spray instill 2 sprays into each nostril twice a day - ZADITOR 0.025 % (0.035 %) ophthalmic solution instill 1 drop INTO AFFECTED EYE(S) twice a day if needed for allergies - aspirin, enteric coated (ECOTRIN LOW STRENGTH) 81 mg EC tablet Take 1 tablet by mouth once daily. Problem List As Of Date 04/17/2024 Noted Resolved with care elsewhere, antepar*12/14/2021 01/16/2022 SGA (small for gestational age), , affecti*12/19/2021 01/16/2022 COVID-19 affecting in first trimester*12/19/2021 01/16/2022 Rh negative state in antepartum period [O26.899*12/19/2021 01/16/2022 Elevated glucose level [R73.09] 12/19/2021 01/16/2022 Cervical high risk HPV (human papillomavirus) t*12/20/2021 with uncertain dates in first trimest*04/06/2024 Encounter for supervision of high risk pregnanc*04/06/2024 History of intrauterine growth restriction in p*04/06/2024 History of depression [Z87.59, Z86.5*04/06/2024 History of placental abnormality [Z87.59] 04/06/2024 Rh negative state in antepartum period [O26.899*04/06/2024 History of environmental allergies [Z91.09] 04/06/2024 Nausea and vomiting during [O21.9] 04/06/2024 History of miscarriage [Z87.59] 04/06/2024 Vulvar lesion [N90.89] 04/06/2024 Encounter Status:Closed by TANYA ROSARIO on 04/17/24 Normal [facility] US Pelvison 04-17-2024 Indication viability Impression Normal appearing anteverted uterus measuring 79 mm x 56 mm x 41 mm. The central endometrial complex contains a gestational sac with a septation. The sac is eccentric and there is a double decidual sign. No yolk sac or pole is observed. Both ovaries are visualized and appear normal. No adnexal masses identified. Normal adnexa seen bilaterally. There is no free fluid visualized in the peritoneal cavity. Recommendations US findings suggestive of intrauterine with unknown viability. Follow up for repeat ultrasound in at least 14 days to confirm viability. Consider following quantitative hCG if symptomatic with pelvic pain or vaginal bleeding. Method Transabdominal and transvaginal ultrasound examination, 3D ultrasound examination, Color Doppler examination. View: Adequate visualization Number of embryos: uncertain Dating LMP on: 03/03/2024 GA by LMP 6 w + 3 d SUDEEP by LMP: 12/08/2024 Assigned: based on the LMP, selected on 04/17/2024 Assigned GA 6 w + 3 d Assigned SUDEEP: 12/08/2024 Assessment Gestational sac: visualized GS 5.9 mm -/- 2% Choco Location: intrauterine Yolk sac: not visualized Embryo: not visualized Uterus Uterus: Visualized Uterus position: anteverted Description of uterine malformations: arcuate Myometrium: normal Endometrium: three-layer pattern, with intrauterine GS Cervix details: normal Uterus length 79 mm Uterus width 56 mm Uterus height 41 mm Uterus Vol 95.3 cm Endometrial thickness, total 10.4 mm Fibroids: No fibroids identified Cul de Sac Visualized. no free fluid visualized Right Ovary Rt ovary: Visualized Rt ovary D1 32 mm Rt ovary D2 27 mm Rt ovary D3 17 mm Rt ovary Vol 7.6 cm Rt ovarian corpus luteum: cystic with fine diffuse internal echoes Rt ovarian corpus luteum D1 13.2 mm Rt ovarian corpus luteum D2 15.6 mm Rt ovarian corpus luteum D3 19.4 mm Left Ovary Lt ovary morphology: premenopausal normal follicular Lt ovary D1 15 mm Lt ovary D2 17 mm Lt ovary D3 19 mm Lt ovary Vol 2.4 cm Performed By: Yaritza Gonzalez RDMS Read By: Rachel Bullock M.D. MATERNAL MEDICINE [facility] Radiology Study observation (narrative) [facility] B-HCG SerPl-aCncon 4 HCG.beta subunit Qn 2397.0 m[IU]/mL High <5.0 [facility] Comment on above: Order Comment: Speci men Type: BLOOD SPECIMEN [facility] Address: [address] [place] [address] Result Comment: THIAGO TITATIVE HCG NORMAL RANGES Weeks of Gestation (Weeks Since LMP) 3 Weeks (5.8-71.2 mIU/mL) 4 Weeks (9.5-750 mIU/mL) 5 Weeks (217-7138 mIU/mL) 6 Weeks (158-64741 mIU/mL) 7 Weeks (3697-002598 mIU/mL) 8 Weeks (00478-273913 mIU/mL) 9 Weeks (20376-941727 mIU/mL) 10 Weeks (06141-146891 mIU/mL) 12 Weeks (26844-578885 mIU/mL) Referenced to 4th IS of [facility] Performed By: #### T SPN #### [facility] CLIA [id number] [address] [place] [address] [place] HCG QUANTITATIVEon 4 HCG.beta subunit Qn 2397.0 m[IU]/mL High [facility] Comment on above: QUANTITATIVE HCG NOR MAL RANGES Weeks of Gestation (Weeks Since LMP) 3 Weeks (5.8-71.2 mIU/mL) 4 Weeks (9.5-750 mIU/mL) 5 Weeks (217-7138 mIU/mL) 6 Weeks (158-94930 mIU/mL) 7 Weeks (3697-102092 mIU/mL) 8 Weeks (00036-250550 mIU/mL) 9 Weeks (14533-914564 mIU/mL) 10 Weeks (02395-942835 mIU/mL) 12 Weeks (11137-659372 mIU/mL) Referenced to 4th IS of [facility] HCG.beta subunit Qnon 2023 Interpretation and review of laboratory results Abnormal [place] HCG QUANTITATIVEon 4 HCG.beta subunit Qn 1791.0 m[IU]/mL High NINF [facility] Comment on above: QUANTITATIVE HCG NOR MAL RANGES Weeks of Gestation (Weeks Since LMP) 3 Weeks (5.8-71.2 mIU/mL) 4 Weeks (9.5-750 mIU/mL) 5 Weeks (217-7138 mIU/mL) 6 Weeks (158-13908 mIU/mL) 7 Weeks (3697-404021 mIU/mL) 8 Weeks (24686-994518 mIU/mL) 9 Weeks (97300-803564 mIU/mL) 10 Weeks (35122-616047 mIU/mL) 12 Weeks (57842-938673 mIU/mL) Referenced to 4th IS of [facility] HCG.beta subunit Qnon 2023 Interpretation and review of laboratory results Abnormal [place] B-HCG SerPl-aCncon 4 HCG.beta subunit Qn 1791.0 m[IU]/mL High <5.0 [facility] Comment on above: Order Comment: Speci men Type: BLOOD SPECIMENOrdering Facility: [facility] Address: [address] [place] [address] Result Comment: THIAGO TITATIVE HCG NORMAL RANGES Weeks of Gestation (Weeks Since LMP) 3 Weeks (5.8-71.2 mIU/mL) 4 Weeks (9.5-750 mIU/mL) 5 Weeks (217-7138 mIU/mL) 6 Weeks (158-94884 mIU/mL) 7 Weeks (3697-574561 mIU/mL) 8 Weeks (29721-043193 mIU/mL) 9 Weeks (21680-684955 mIU/mL) 10 Weeks (38934-991125 mIU/mL) 12 Weeks (41275-431433 mIU/mL) Referenced to 4th IS of [facility] Performed By: #### 2 1198-7 ####[facility] LABCLIA [id number] [address] [place] Yael 04-13-2024 CNPN Telephone (OBGYWM) LANA SALGUERO ([id number]) 1990 F Date Time Provider Department 04/13/24 DONA DC OBGYWM During your visit today, we recorded the following information about you: Diane Mazariegos RN 04/13/2024 8:18 AM Signed 5w6d Pt calls stating yesterday she began with vaginal discharge which had green tint and then brown tint. Denies recent sexual intercourse/nothing in vagina past week. Denies vaginal bleeding/pain/vaginal itching/vaginal burning/dysuria. Advised Pt to call office if she began to bleed vaginally or had severe abdominal pain to call office. Pt also asking if HCG levels can be done. Last OV 04/06/24 with . Please advise. WALTER Marquez Emily, APRN.DAMARI 04/13/2024 8:21 AM Signed HCG ordered. Please review pain/bleeding precautions. Luis Noel APRN.Diane Nicholson RN 04/13/2024 8:26 AM Signed Left message for patient to call office. WALTER Marquez Tara, RN 04/13/2024 8:37 AM Signed Pt notified. Bleeding precautions and ectopic precautions reviewed. Pt advised our office will be in contact with her once HCG levels result. Leave phone note open for HCG results from 04/13 AND 04/15 lab draw. WALTER Marquez Tara, RN 04/16/2024 8:46 AM Signed HCG order pending to get done 04/18/24 as advised by . Please file and view Pt's [employer] message. WALTER Marquez Emily, APRN.DAMARI 04/16/2024 8:49 AM Signed HCG ordered. Please assist her in scheduling ultrasound, first available. Luis Neol APRN.Luis Gomez APRN.CNP 04/16/2024 8:50 AM Signed She has 04/23 ultrasound - please see if we can move it up Luis Noel APRN.Dinae Nicholson RN 04/16/2024 9:58 AM Signed Called Pt and ultrasound scheduled for 04/17 at 8am. Lab appt following.Diane Mazariegos RN Allergies As of Date: 04/13/2024 (No Known Allergies) Date Reviewed: 04/06/2024 Reviewed by: Luis Noel APRN.DAMARI - Fully Assessed Reason for Visit: Patient Question [1477] Primary Visit Diagnosis: with uncertain dates, antepartum [Z34.90] Other Visit Diagnosis:Bleeding in early [O20.9] Order(s):HCG QUANTITATIVE [SQHCGQT] Order #: [id number] STANDING HCG QUANTITATIVE [SQHCGQT] Order #: [id number] STANDING PELVIC US WHI [[id number]] Order #: [id number]: 1 FUTURE Prescriptions as of 04/16/2024 - vit/iron fum/folic ac ( 1 + 1 ORAL) - levocetirizine 5 mg tablet take 1 tablet by mouth once daily every evening - azelastine 0.1% nasal spray instill 2 sprays into each nostril twice a day - ZADITOR 0.025 % (0.035 %) ophthalmic solution instill 1 drop INTO AFFECTED EYE(S) twice a day if needed for allergies - aspirin, enteric coated (ECOTRIN LOW STRENGTH) 81 mg EC tablet Take 1 tablet by mouth once daily. Problem List As Of Date 04/13/2024 Noted Resolved with care elsewhere, antepar*12/14/2021 01/16/2022 SGA (small for gestational age), , affecti*12/19/2021 01/16/2022 COVID-19 affecting in first trimester*12/19/2021 01/16/2022 Rh negative state in antepartum period [O26.899*12/19/2021 01/16/2022 Elevated glucose level [R73.09] 12/19/2021 01/16/2022 Cervical high risk HPV (human papillomavirus) t*12/20/2021 with uncertain dates in first trimest*04/06/2024 Encounter for supervision of high risk pregnanc*04/06/2024 History of intrauterine growth restriction in p*04/06/2024 History of depression [Z87.59, Z86.5*04/06/2024 History of placental abnormality [Z87.59] 04/06/2024 Rh negative state in antepartum period [O26.899*04/06/2024 History of environmental allergies [Z91.09] 04/06/2024 Nausea and vomiting during [O21.9] 04/06/2024 History of miscarriage [Z87.59] 04/06/2024 Vulvar lesion [N90.89] 04/06/2024 Encounter Status:Closed by DIANE MAZARIEGOS on 04/16/24 [facility] Yael 04-07-2024 CNPN Telephone ([facility]) LANA SALGUERO ([id number]) 1990 F Date Time Provider Department 04/07/24 LUIS NOEL [facility] During your visit today, we recorded the following information about you: Sia Tai RN 04/07/2024 10:31 AM Signed 1st risk assessment form submitted 04/07/24 Sia Tai RN Allergies As of Date: 04/07/2024 (No Known Allergies) Date Reviewed: 04/06/2024 Reviewed by: Luis Noel APRN.[facility] - Fully Assessed Reason for Visit: PRAF [4193] Prescriptions as of 04/07/2024 - vit/iron fum/folic ac ( 1 + 1 ORAL) - levocetirizine 5 mg tablet take 1 tablet by mouth once daily every evening - azelastine 0.1% nasal spray instill 2 sprays into each nostril twice a day - ZADITOR 0.025 % (0.035 %) ophthalmic solution instill 1 drop INTO AFFECTED EYE(S) twice a day if needed for allergies - aspirin, enteric coated (ECOTRIN LOW STRENGTH) 81 mg EC tablet Take 1 tablet by mouth once daily. Problem List As Of Date 04/07/2024 Noted Resolved with care elsewhere, antepar*12/14/2021 01/16/2022 SGA (small for gestational age), , affecti*12/19/2021 01/16/2022 COVID-19 affecting in first trimester*12/19/2021 01/16/2022 Rh negative state in antepartum period [O26.899*12/19/2021 01/16/2022 Elevated glucose level [R73.09] 12/19/2021 01/16/2022 Cervical high risk HPV (human papillomavirus) t*12/20/2021 with uncertain dates in first trimest*04/06/2024 Encounter for supervision of high risk pregnanc*04/06/2024 History of intrauterine growth restriction in p*04/06/2024 History of depression [Z87.59, Z86.5*04/06/2024 History of placental abnormality [Z87.59] 04/06/2024 Rh negative state in antepartum period [O26.899*04/06/2024 History of environmental allergies [Z91.09] 04/06/2024 Nausea and vomiting during [O21.9] 04/06/2024 History of miscarriage [Z87.59] 04/06/2024 Vulvar lesion [N90.89] 04/06/2024 Encounter Status:Closed by SIA TAI on 04/07/24 Normal [facility] Bacteria Ur Culton 4 Bacteria identified Cx Nom (U) ORGANISM ID: 1 <10,000 CFU/ml Enterococcus faecalis Insignificant colony count. No further workup. Cephalosporins, clindamycin, and TMP-SMX are not effective for the treatment of enterococcal infections. Normal [facility] Comment on above: Performed By: #### T SPN #### [facility] CLIA [id number] [address] [place] [address] [place] C. trachomatis+N. gonorrhoea e DNA CHON+probe Ql (Unsp spec)on 04-06-2024 C. trachomatis rRNA CHON+probe Ql (Unsp spec) Not detected Normal Not detected [facility] Comment on above: Order Comment: Speci men Type: SWABOrdering Facility: [facility] Address: [address] [place] [address] Performed By: #### 3 6902-5 ####[facility] LABCLIA [id number] [place] [address] [place] N. gonorrhoeae rRNA CHON+probe Ql (Unsp spec) Not detected Normal Not detected [facility] Comment on above: Order Comment: Speci men Type: SWABOrdering Facility: [facility] Address: [address] [place] [address] Performed By: #### 3 6902-5 ####[facility] LABCLIA [id number] [place] [address] [place] CARRIER SCREEN, STANDARDon 1 06-06-2023 CARRIER SCREEN RESULTS View results in Scanned Documents link when available. Normal [facility] Comment on above: Order Comment: Speci men Type: BLOOD SPECIMENOrdering Facility: [facility] Address: [address] [place] [address] Performed By: #### C RRSCN ####[facility] [id number] [place] [address] CBC W Auto Differential pane l (Bld)on 04-06-2024 Basophils (Bld) [#/Vol] 0.05 10*3/uL Normal <0.11 [facility] Comment on above: Order Comment: Speci men Type: BLOOD SPECIMEN [facility] Address: [address] [place] [address] Performed By: #### T SPN #### [facility] CLIA [id number] [address] [place] [address] [place] Basophils/100 WBC (Bld) 0.6 % Normal [facility] Comment on above: Order Comment: Speci men Type: BLOOD SPECIMEN [facility] Address: [address] [place] [address] Performed By: #### T SPN #### [facility] CLIA [id number] [address] [place] [address] [place] Differential cell count method Nom (Bld) Auto Normal [facility] Comment on above: Order Comment: Speci men Type: BLOOD SPECIMEN [facility] Address: [address] [place] [address] Performed By: #### T SPN #### [facility] CLIA [id number] [address] [place] [address] [place] Eosinophils (Bld) [#/Vol] 0.41 10*3/uL Normal <0.46 [facility] Comment on above: Order Comment: Speci men Type: BLOOD SPECIMEN [facility] Address: [address] [place] [address] Performed By: #### T SPN #### [facility] CLIA [id number] [address] [place] [address] [place] Eosinophils/100 WBC (Bld) 5.3 % Normal [facility] Comment on above: Order Comment: Speci men Type: BLOOD SPECIMEN [facility] Address: [address] [place] [address] Performed By: #### T SPN #### [facility] CLIA [id number] [address] [place] [address] [place] Erythrocyte distribution width (RBC) [Ratio] 12.3 % Normal 11.5-15.0 [facility] Comment on above: Order Comment: Speci men Type: BLOOD SPECIMEN [facility] Address: [address] [place] [address] Performed By: #### T SPN #### [facility] CLIA [id number] [address] [place] [address] [place] Hematocrit (Bld) [Volume fraction] 37.0 % Normal 36.0-46.0 [facility] Comment on above: Order Comment: Speci men Type: BLOOD SPECIMEN [facility] Address: [address] [place] [address] Performed By: #### T SPN #### [facility] CLIA [id number] [address] [place] [address] [place] Hemoglobin (Bld) [Mass/Vol] 12.5 g/dL Normal 11.5-15.5 [facility] Comment on above: Order Comment: Speci men Type: BLOOD SPECIMEN [facility] Address: [address] [place] [address] Performed By: #### T SPN #### [facility] CLIA [id number] [address] [place] [address] [place] Immature granulocytes (Bld) [#/Vol] 10*3/uL Normal <0.10 [facility] Comment on above: Order Comment: Speci men Type: BLOOD SPECIMEN [facility] Address: [address] [place] [address] Performed By: #### T SPN #### [facility] CLIA [id number] [address] [place] [address] [place] Immature granulocytes/100 WBC (Bld) 0.1 % Normal [facility] Comment on above: Order Comment: Speci men Type: BLOOD SPECIMEN [facility] Address: [address] [place] [address] Performed By: #### T SPN #### [facility] CLIA [id number] [address] [place] [address] [place] Lymphocytes (Bld) [#/Vol] 2.02 10*3/uL Normal 1.00-4.00 [facility] Comment on above: Order Comment: Speci men Type: BLOOD SPECIMEN [facility] Address: [address] [place] [address] Performed By: #### T SPN #### [facility] CLIA [id number] [address] [place] [address] [place] Lymphocytes/100 WBC (Bld) 26.1 % Normal [facility] Comment on above: Order Comment: Speci men Type: BLOOD SPECIMEN [facility] Address: [address] [place] [address] Performed By: #### T SPN #### [facility] CLIA [id number] [address] [place] [address] [place] MCH (RBC) [Entitic mass] 30.6 pg Normal 26.0-34.0 [facility] Comment on above: Order Comment: Speci men Type: BLOOD SPECIMEN [facility] Address: [address] [place] [address] Performed By: #### T SPN #### [facility] CLIA [id number] [address] [place] [address] [place] MCHC (RBC) [Mass/Vol] 33.8 g/dL Normal 30.5-36.0 [facility] Comment on above: Order Comment: Speci men Type: BLOOD SPECIMEN [facility] Address: [address] [place] [address] Performed By: #### T SPN #### [facility] CLIA [id number] [address] [place] [address] [place] MCV (RBC) [Entitic vol] 90.5 fL Normal 80.0-100.0 [facility] Comment on above: Order Comment: Speci men Type: BLOOD SPECIMEN [facility] Address: [address] [place] [address] Performed By: #### T SPN #### [facility] CLIA [id number] [address] [place] [address] [place] Monocytes (Bld) [#/Vol] 0.65 10*3/uL Normal <0.87 [facility] Comment on above: Order Comment: Speci men Type: BLOOD SPECIMEN [facility] Address: [address] [place] [address] Performed By: #### T SPN #### [facility] CLIA [id number] [address] [place] [address] [place] Monocytes/100 WBC (Bld) 8.4 % Normal [facility] Comment on above: Order Comment: Speci men Type: BLOOD SPECIMEN [facility] Address: [address] [place] [address] Performed By: #### T SPN #### [facility] CLIA [id number] [address] [place] [address] [place] Neutrophils (Bld) [#/Vol] 4.59 10*3/uL Normal 1.45-7.50 [facility] Comment on above: Order Comment: Speci men Type: BLOOD SPECIMEN [facility] Address: [address] [place] [address] Performed By: #### T SPN #### [facility] CLIA [id number] [address] [place] [address] [place] Neutrophils/100 WBC (Bld) 59.5 % Normal [facility] Comment on above: Order Comment: Speci men Type: BLOOD SPECIMEN [facility] Address: [address] [place] [address] Performed By: #### T SPN #### [facility] CLIA [id number] [address] [place] [address] [place] Nucleated RBC (Bld) [#/Vol] 10*3/uL Normal <0.01 [facility] Comment on above: Order Comment: Speci men Type: BLOOD SPECIMEN [facility] Address: [address] [place] [address] Performed By: #### T SPN #### [facility] CLIA [id number] [address] [place] [address] [place] Nucleated RBC/100 WBC (Bld) [Ratio] 0.0 /100 WBC Normal [facility] Comment on above: Order Comment: Speci men Type: BLOOD SPECIMEN [facility] Address: [address] [place] [address] Performed By: #### T SPN #### [facility] CLIA [id number] [address] [place] [address] [place] Platelet mean volume (Bld) [Entitic vol] 9.7 fL Normal 9.0-12.7 [facility] Comment on above: Order Comment: Speci men Type: BLOOD SPECIMEN [facility] Address: [address] [place] [address] Performed By: #### T SPN #### [facility] CLIA [id number] [address] [place] [address] [place] Platelets (Bld) [#/Vol] 314 10*3/uL Normal 150-400 [facility] Comment on above: Order Comment: Speci men Type: BLOOD SPECIMEN [facility] Address: [address] [place] [address] Performed By: #### T SPN #### [facility] CLIA [id number] [address] [place] [address] [place] RBC (Bld) [#/Vol] 4.09 10*6/uL Normal 3.90-5.20 [facility] Comment on above: Order Comment: Speci men Type: BLOOD SPECIMEN [facility] Address: [address] [place] [address] Performed By: #### T SPN #### [facility] CLIA [id number] [address] [place] [address] [place] WBC (Bld) [#/Vol] 7.73 10*3/uL Normal 3.70-11.00 [facility] Comment on above: Order Comment: Speci men Type: BLOOD SPECIMEN [facility] Address: [address] [place] [address] Performed By: #### T SPN #### [facility] CLIA [id number] [address] [place] [address] [place] HBV surface Ag Ser Qlon 03-14 HBV surface Ag Ql (S) Negative Normal Negative [facility] Comment on above: Order Comment: Speci men Type: BLOOD SPECIMEN [facility] Address: [address] [place] [address] Performed By: #### T SPN #### [facility] CLIA [id number] [address] [place] [address] [place] HCV Ab Ser Qlon 04-06-2024 HCV Ab Ql (S) Negative Normal Negative [facility] Comment on above: Order Comment: Speci men Type: BLOOD SPECIMENOrdering Facility: [facility] Address: [address] [place] [address] Result Comment: The result suggests no evidence of active infection with Hepatitis C virus. Should recent infection be suspected, repeat testing may be considered 4-6 weeks after this draw. Performed By: #### 1 6128-1 ####[facility] [id number] [place] [address] [place] HIV 1+2 Ab IA Qlon HIV 1 and 2 Ab IA.rapid Nom (S/P/Bld) Normal [facility] Comment on above: Order Comment: Speci men Type: BLOOD SPECIMEN [facility] Address: [address] [place] [address] Result Comment: Test not indicated. Performed By: #### T SPN #### [facility] CLIA [id number] [address] [place] [address] [place] HIV 1+2 Ab+HIV1 p24 Ag IA Ql Non-Reactive Normal Nonreactive [facility] Comment on above: Order Comment: Speci men Type: BLOOD SPECIMEN [facility] Address: [address] [place] [address] Performed By: #### T SPN #### [facility] CLIA [id number] [address] [place] [address] [place] HIV immunoassay testing algorithm interpretation (S/P/Bld) [Interp] Normal [facility] Comment on above: Order Comment: Speci samir Type: BLOOD SPECIMEN [facility] Address: [address] [place] [address] Result Comment: No e vidence of HIV-1 or HIV-2 infection. Should recent infection be suspected, repeat testing may be considered 2-3 weeks after this draw. [place] Rev. Code 3701.243(E): This information has been disclosed to you from confidential records protected from disclosure by state law. ???You shall make no further disclosure of this information without the specific, written, and informed release of the individual to whom it pertains or as otherwise permitted by state law. A general authorization for the release of medical or other information is not sufficient for the purpose of the release of HIV test results or diagnoses. Performed By: #### T SPN #### [facility] CLIA [id number] [address] [place] [address] [place] HbA1c (Bld)on 04-06-2024 Average glucose Estimated from glycated hemoglobin (Bld) [Mass/Vol] 97 mg/dL Normal [facility] Comment on above: Order Comment: Reji dawson Type: BLOOD SPECIMENOrdering Facility: [facility] Address: [address] [place] [address] Result Comment: eAG: (Estimated average glucose) is a calculated value from HgbA1c and is direct marketing representative of the average blood glucose level in the last 2-3 month period. Performed By: #### 5 5454-3 ####[facility] LAB[facility]IA [id number] [place] [address] [place] HbA1c (Bld) [Mass fraction] 5.0 % Normal 4.3-5.6 [facility] Comment on above: Order Comment: Reji dawson Type: BLOOD SPECIMENOrdering Facility: [facility] Address: [address] [place] [address] Result Comment: [place] Diabetes Association guidelines indicate that patients with HgbA1c in the range 5.7-6.4% are at increased risk for development of diabetes, and intervention by lifestyle modification may be beneficial. HgbA1c greater or equal to 6.5% is considered diagnostic of diabetes. Performed By: #### 5 5454-3 ####[facility] LABCLIA [id number] [place] [address] [place] RUBELLA IGG ANTIBODYon 04-06 RUBELLA IGG AB, QUAL Positive Normal Positive [facility] Comment on above: Order Comment: Speci [facility] Type: BLOOD SPECIMENOrdering Facility: [facility] Address: [address] [place] [address] Result Comment: The result suggests recent or past exposure to Rubella virus or history of Rubella vaccination. Positive result may also be seen due to presence of passively-transferred antibodies. Please correlate with patient's history. Performed By: #### R UBIGG ####[facility] LAB[facility]IA [id number] [place] [address] [place] Reagin and Treponema pallidu m IgG and IgM [Interp]on 04-06-2024 T. pallidum IgG+IgM IA Ql (S) Non-Reactive Normal Nonreactive [facility] Comment on above: Order Comment: Reji [facility] Type: BLOOD SPECIMEN [facility] Address: [address] [place] [address] Performed By: #### T SPN #### [facility] CLIA [id number] [address] [place] [address] [place] Reagin+T pallidum IgG+IgM Se rPl-Impon 04-06-2024 Reagin and Treponema pallidum IgG and IgM [Interp] Cannot exclude recent Treponemal infection if specimen collected within 7-10 days after appearance of suspect lesions or 2-3 weeks after an exposure. Clinical correlation is required. Normal [facility] Comment on above: Order Comment: Reji [facility] Type: BLOOD SPECIMEN [facility] Address: [address] [place] [address] Performed By: #### T SPN #### [facility] CLIA [id number] [address] [place] [address] [place] TYPE + SCREEN PRENATALon ABO O Normal [facility] Comment on above: Order Comment: Speci men Type: BLOOD SPECIMEN [facility] Address: [address] [place] [address] Performed By: #### T SPN #### [facility] CLIA [id number] [address] [place] [address] [place] Rh Nom (Bld) Negative Normal [facility] Comment on above: Order Comment: Speci men Type: BLOOD SPECIMEN Ordering Facility: [facility] Address: [address] [place] [address] Performed By: #### T SPN #### CC MAIN BLOOD BANK CLIA [id number] [address] [place] [address] [place] TYPE AND SCREEN EXPIRATION 04/09/2024 23:59 Normal [facility] Comment on above: Order Comment: Speci men Type: BLOOD SPECIMEN Ordering Facility: [facility] Address: [address] [place] [address] Performed By: #### T SPN #### CC MAIN BLOOD BANK CLIA [id number] [address] [place] [address] [place] CNPZoe 04-02-2024 DAMARIN Telephone (GALE) LANA SALGUERO ([id number]) 1990 F Date Time Provider Department 04/02/24 LUIS NOEL During your visit today, we recorded the following information about you: Talita Quiros RN 04/02/2024 3:57 PM Signed Left message for patient to return phone call to complete nurse intake questions for her upcoming appointment. Patient has an appointment with Luis Noel for NOB appointment. I will be in on Saturday if patient is available or you can transfer to [facility]. Evelin Garnica RN 04/02/2024 4:29 PM Signed Patient called back and is scheduled for PNOB phone call 04/06 at 8:30am prior to her visit. Evelin Garnica RN Allergies As of Date: 04/02/2024 (No Known Allergies) Date Reviewed: 01/27/2024 Reviewed by: Luis Noel APRN.CASING WRINGER OPERATOR - Fully Assessed Reason for Visit: Appointment [186] Problem List As Of Date 04/02/2024 Noted Resolved with care elsewhere, antepar*12/14/2021 01/16/2022 SGA (small for gestational age), , affecti*12/19/2021 01/16/2022 COVID-19 affecting in first trimester*12/19/2021 01/16/2022 Rh negative state in antepartum period [O26.899*12/19/2021 01/16/2022 Elevated glucose level [R73.09] 12/19/2021 01/16/2022 Cervical high risk HPV (human papillomavirus) t*12/20/2021 Encounter Status:Closed by EVELIN GARNICA on 04/02/24 [facility] CNOVon 05-10-2022 CNOV Office Visit (GYNGRN ) LANA SALGUERO ([id number]) 1990 F Date Time Provider Department 05/10/22 8:00 AM ANT STEWART During your visit today, we recorded the following information about you: Blood pressure Weight Height 118/72 54.4 kg 1.6 m Ant Stewart APRN.CASING WRINGER OPERATOR 05/11/2022 8:01 AM Addendum CARE CLINIC INITIAL CONSULT NAME: Lana Salguero CHIEF COMPLAINT: Lana Salguero is a 32 year old White Not female who is s/p Vacuum-assisted vaginal delivery who is here for a consultation requested by Dr. Paul Quezada for an opinion regarding 2nd degree perineal lac, granulation tissue and perineal pain. HISTORY OF PRESENT ILLNESS 18 weeks . VAVD. 2nd degree lac. Resection of granulation tissue by Dr. Quezada on 04/10/22. States she is not having pain, it is more of a discomfort. She is avoiding sex due to discomfort. Has been applying estrogen cream regularly with no change. Obstetric History: Date of delivery: 01/03/2022 Most recent delivery:Vacuum-ashok xenia vaginal delivery Weight of the baby: 5lbs 2oz Laceration or episiotomy: 2nd degree Hospital: [facility] How long did you push?: 3 hours Did you perform regular perineal massage in the third trimester of your ?: No Previous deliveries: No # 1 - Date: 2011, Sex: None, Weight: None, GA: 7w0d, Delivery: None, Apgar1: None, Apgar5: None, Living: None, Comments: No [facility] # 2 - Date: 01/03/22, Sex: Female, Weight: 2.325 kg (5 lb 2 oz), GA: 39w0d, Delivery: Vaginal, Vacuum (Extractor), Apgar1: 9, Apgar5: 9, Living: Living, Comments: induction for IUGR, vacuum for maternal exhaustion - pushed x4 hours, EBL 300mL, 2nd degree perineal laceration, placenta with accessory lobe, marginal cord insertion Is there anything else we should know about your delivery?: No How are you feeding your baby: . Are you having any problems? No Have you had pain since your delivery? Yes. Has the pain resolved? No. There is still pain with: no pain, just discomfort. Are you taking anything for the pain? No Are you soaking your bottom (sitz bath)? No Are you taking anything to soften your stools? No Have your menstrual periods started? No LMP: Patient's last menstrual period was 03/27/2021 (approximate). Are you doing/using anything to prevent ? No-Abstaining Have you resumed intercourse since your delivery? No- Abstaining Did you have any pain with intercourse prior to your ? No Barneveld Scale Score: 3 Have you ever been diagnosed with depression or anxiety? No Urinary Symptoms: Are you leaking urine? No Did you leak urine during your ? No Did you leak urine before your ? No MADDIE-6 Do you experience, and if so, how much are you bothered by frequent urination: 0- Not at all Do you experience, and if so, how much are you bothered by urine leakage related to a feeling of urgency? 0- Not at all Do you experience, and if so, how much are you bothered by urine leakage related to physical activity, coughing or sneezing? 0- Not at all Do you experience, and if so, how much are you bothered by small amounts of urine leakage (drops)? 0- Not at all Do you experience, and if so, how much are you bothered by difficulty emptying your bladder? 0- Not at all Do you experience, and if so, how much are you bothered by pain or discomfort in the lower abdominal or genital area? 1- Slightly MADDIE-6 Score: 1 Pain: Tasneem Pain Questionnaire- Short Form Overall Pain Index (VAS): 0 Persistent Pain Index (PPI): 1- Mild Did you have any vulvar or vaginal pain prior to your ? No Defecatory Symptoms: Are you leaking stool? No Did you leak stool during your ? No Did you leak stool before your ? No Are you leaking flatus (gas)? Yes Did you leak gas during your ? No Did you leak gas before your ? No Rolette Stool Chart stool type in last 7 days: Type 4: Like a sausage or snake, smooth or soft Fecal Incontinence Severity Score: FISI Gas: (12) 2 or more times/day Mucus: (0) Never Liquid stool: (0) Never Solid stool: (16) Once/day FISI Score: 28 Do you leak stool while trying to get to the toilet? No Do you leak stool when you have no sensation that you need to defecate? No Do you leak stool only after having a bowel movement? No Do you wear a pad because of stool leakage? No Do you have fecal urgency? 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 Normal [facility] CNPNon 05-02-2022 CNPN Telephone (UROLAE) LANA SALGUERO ([id number]) 1990 F Date Time Provider Department 05/02/22 ANT STEWART During your visit today, we recorded the following information about you: Khadra LANGE 05/02/2022 3:38 PM Signed Left message to schedule. Ref. By: Dr. Paul Quezada - [facility] Ref. To: Ant Stewart Re: Care Clinic referral received from Paul Quezada MD, for perineal pain and granulation tissue. 32 yo - s/p Vacuum-assisted VD on 01/03 w/ 2nd degree lac Thank you, Khadra Goncalvesyn Jerrod Prescott 05/02/2022 4:20 PM Signed Patient returned the call and left message on scheduling voicemail. Called patient back and LMOM for patient to call the office at [phone] to schedule. Luciana Prescott May 02, 2022 4:18 PM Khadra LANGE 05/08/2022 11:24 AM Signed Left another message to schedule. Khadra Rodarte 05/08/2022 11:35 AM Signed PT called back to schedule but was not able to find a good available time. PT will check her schedule and call back again to try and schedule. Yesenia Kearns Agronomy Advisor 05/08/2022 12:05 PM Signed Patient is scheduled 05/10/2022. PCC questionnaire was sent to her mychart to fill out prior to appointment and bring in. Allergies As of Date: 05/02/2022 (No Known Allergies) Date Reviewed: 04/26/2022 Reviewed by: Paul Quezada MD - Fully Assessed Reason for Visit: PPCC Consult with Ant Stewart [Other] Prescriptions as of 05/08/2022 - Norethindrone, Contraceptive, (ORTHO MICRONOR) 0.35 mg tablet Take 1 tablet by mouth once daily. - estradiol (ESTRACE) 0.01 % (0.1 mg/gram) vaginal cream apply 1/4 inch of cream to vaginal introitus qhs for 12 weeks - acetaminophen (TYLENOL ORAL) Take by mouth. - prental multivitamin 27 mg iron- 800 mcg tablet Take 1 tablet by mouth once daily. - loratadine (CLARITIN ORAL) Take by mouth. Problem List As Of Date 05/02/2022 Noted Resolved with care elsewhere, antepar*12/14/2021 01/16/2022 SGA (small for gestational age), , affecti*12/19/2021 01/16/2022 COVID-19 affecting in first trimester*12/19/2021 01/16/2022 Rh negative state in antepartum period [O26.899*12/19/2021 01/16/2022 Elevated glucose level [R73.09] 12/19/2021 01/16/2022 Cervical high risk HPV (human papillomavirus) t*12/20/2021 Encounter Status:Closed by KHADRA PLAZA on 05/02/22 [facility] Discharge Instructionon 12-12 Discharge Instruction [facility] Medical Records Department [address] [place] [address] Instructions for Home/Discharge Instructions 01/04/22 1241 MR#: [id number] Acct: [id number] Name: LANA SALGUERO Rep #: [id number] : 1990 31 From: Arsh Gutierres MD PCP: Status:ADM IN Discharge Instructions Diet Discharge Diet: No restrictions Activity Discharge Activity: May Shower May resume sexual activity in: 6 weeks Weight Bearing Status: Weight bearing as tolerated Dressing / Incision Call your doctor if you observe: Fever of 101 or Higher, Coldness, Increased Pain, Change in Color, Inability to urinate, Inability to have a bowel movement, Using more than 1 pad per hour, Shortness of breath, Dizziness, Fainting spells, Chest pain, Increased palpitations (irregular heartbeat), Calf discomfort and Uncontrolled pain Follow Up Care Please Follow Up With: Arsh Gutierres MD When: Follow up in 2 and 6 weeks for visits. Test Results: Test results from this visit will be discussed in further detail at your follow-up appointment, if applicable. Discharge Plan Admission Admit Date/Time: 01/01/22 18:55 Primary Reason for Your Visit: Vaginal delivery Attending Provider: Pamela Barrios Discharge Orders/Prescriptions Prescriptions: New acetaminophen 500 mg Tablet 1,000 mg PO Q6H PRN PRN (Reason: Pain 1-10 Or Fever) Qty: 0 0RF ibuprofen 600 mg Tablet 600 mg PO Q6H PRN PRN (Reason: Pain Score 1-3) Qty: 0 0RF Continued inxbkwvi-lkh-Sy-FA 1 mg Tablet 1 tab PO DAILY Disposition Disposition (needs filled in before D/C Order can be placed): Home, Self Care 01/04/22 1243 Arsh Gutierres MD CC: Signed Normal [facility]22 RHOGAM Normal [facility] Comment on above: Result Comment: [id number] RHOGAM PRSMD TRFSD 01/03/22 1426 Performed By: #### B RHOGAM #### [facility] [address] [place], [address] Operative Reporton 2 Operative Report [facility] Medical Records Department [address] [place] [address] Operative Report 01/03/22 0230 MR#: [id number] Acct: [id number] Name: LANA SALGUERO Rep #: [id number] : 1990 From: Paul Quezada MD PCP: Status:ADM IN Location: [id number] Assessment Plan (1) 38 weeks gestation of : (2) Vacuum-assisted vaginal delivery: (3) Maternal exhaustion complicating labor and delivery: (4) Second degree perineal laceration: Maternal Data Information SUDEEP Calculator Estimated Delivery Date Method Current WG Current Estimate 01/10/22 Manual 39w 0d Final SUDEEP: 01/10/22 Gestational age: 39 0/7 Vaginal Delivery Maternal Presentation Maternal Presentation: Medically Indicated Induction Type of Induction: Pitocin, Streeter Bulb, Amniotomy and Cytotec Medical Reason for Induction: - (suspected IUGR) Operative Information Date of Procedure: 01/03/22 Pre-Operative Diagnosis: maternal exhuastion Post-Operative Diagnosis: same Surgery / Procedure Performed: Vacuum Assisted Vaginal Delivery (low) Type of Anesthesia: Epidural Special Medications: none Drain: - (none) Estimated Blood Loss: 300 Time of Delivery: 02:03 Findings Description of Procedure: The patient was complete and pushing for almost 4 hours. Her contractions became an adequate and very spaced out when her IV infiltrated and Pitocin had to be stopped. IV was eventually restarted. Patient was giving good maternal pushing efforts at the beginning of pushing but towards the end they were inadequate because of complete exhaustion. The position was ADORE. Station was plus 4 out of 5. There is small amount of caput. Estimated weight was less than 3000 g by ultrasound. Pelvis was clinically adequate. Epidural was adequate. Streeter catheter had been removed at the beginning of pushing. Patient was expelling some urine during pushing. I discussed with the patient option of versus trial of low vacuum-assisted vaginal delivery. Patient and partner agreed to proceed with attempted vacuum. The vacuum was placed on the flexion point and vacuum created 550 mmHg. I pulled with 1 pull with 1 contraction and the vacuum was removed with no pop offs. The remainder the head was delivered with maternal pushing efforts only. The remainder the was delivered in less than 15 seconds without any significant traction. A vigorous female infant was delivered ADORE over a second-degree perineal laceration. The Pitocin infusion was initiated for active management of the third stage. The cord was clamped and cut after 1 minute. The was attended to by the waiting nursing staff. The placenta was delivered spontaneously and intact. The cervix and vagina were intact. The second-degree perineal laceration was repaired with 2-0 Vicryl suture in a running standard fashion. Sponge and needle counts were correct. A vaginal sweep was completed by me. Presentation: ADORE Amniotic Membrane Rupture Type: Artificial Amniotic Fluid Description: Clear Placental Delivery Description: Spontaneous Placenta Disposition: Sent to Pathology Cord Vessel Description: 3 Vessels Cord Entanglement: None Cord Gases: ABG and VBG A Gender: Female (Preet- placenta w/ accessory lobe, marginal cord insertion) (1 minute): 9 (5 minute): 9 Delayed Cord Clamping: Yes Post Vaginal Delivery Medications Given After Delivery: IV Pitocin Episiotomy Description: None Laceration: 2nd degree Complication Complications: None Admit VTE Documentation VTE Present on Admission: No VTE Pharm Prophylaxis Ordered: No Reason Prophylaxis Not Ordered: Procedure Not Indicated 01/03/22 0236 Cosigner Signature (if applicable): CC: Dr. Paul Quezada MD Signed Normal [facility] Pathology Specimen OBon 12-12 PATH. Spec OB SEE PATHOLOGY REPORT Normal [facility] Comment on above: Order Comment: Send Specimen For (Specify): Studies @ [facility] Lab:Routine Time of Procedure: 209 Date of Procedure: 01/03/22 Reason specimen being sent to pathology (Hx/complications): routine Type of specimen: Placenta Type of procedure performed: Other Result Comment: Spec imen submitted to Anatomical Pathology Department for testing. Performed By: #### L 350.1800 #### [facility] [address] [place], [address] Rh Negative Mom Workupon SCREEN Negative Normal NEGATIVE [facility] Comment on above: Order Comment: jamal loaiza [id number] Performed By: #### B RHNM #### [facility] [address] [place], [place], [id number] Surgery Specimen Level Von 0 01-03-2022 Surgery Specimen Level V OPERATION: Vaginal delivery PRE-OP DIAGNOSIS: Labor TISSUE SUBMITTED: Placenta -------- Placenta: Placental disc - third trimester placenta (285 gm). - Focal acute vasculitis of subamniotic blood vessels. Membranes ??? acute chorioamnionitis. Umbilical cord - three blood vessels and focal minimal acute funisitis. - Marginal insertion. SJ:mouna 01/04/2022 Slides are reviewed. SPECIMEN: PLACENTA / CLINICAL INFORMATION: A. Weight: 2.335 kg B. Gestational Age: 39 weeks C. Sex: Female PLACENTAL WEIGHT (POST FIXATION): 285 gm PLACENTAL DIMENSIONS: 17 x 13 x 2.5 cm PLACENTAL SHAPE: Usual ovoid PLACENTAL WEIGHT FOR GESTATIONAL AGE: <10th percentile MEMBRANES - Present A. Insertion: Marginal B. Site of rupture from edge: At edge of placental disc C. Color of membrane: Cheema-mcduffie D. Abnormalities: None UMBILICAL CORD - Present A. Color: Cheema-mcduffie B. Insertion: Marginal C. Length: 18 cm D. Diameter: 1.2 cm E. Number of vessels: Three F. Abnormalities: None PLACENTAL DISC - Present A. Color of surface: Cheema-mcduffie B. surface abnormalities: None C. Maternal cotyledons: Intact with minimal tears D. Attached retro placental clot: No clot E. Cut surface: Dark red and spongy F. Lesions: None G. Separate clot: Absent SECTIONS SUBMITTED: 1. Umbilical cord ( end notched) 2. Umbilical cord, placental end 3. Membrane roll 4. Placental disc, and maternal surfaces 5. Placental disc, and maternal surfaces 6. Placental disc, and maternal surfaces AM:mouna 01/03/2022 TC:2 CPT: 28734 -------- Signed (signature on file) Dr. Sp Guzman MD 01/04/22 1437 -------- Normal [facility] Comment on above: Performed By: #### P SUV #### [facility] [address] [place], [place], [id number] Absolute lymphocyte counton 01-01-2022 Lymphocytes Auto (Unsp spec) [#/Vol] 1.44 10*3/uL 0.83-4.51 [facility] Work Phone: Basophil percentageon 2021 Basophils/100 WBC (Bld) 0.2 % 0-1 [facility] Work Phone: [phone] Eosinophils/100 WBC (Bld) 1.1 % 0-5 [facility] Work Phone: Neutrophils (Bld) [#/Vol] 6.9 10*3/uL 2.0-7.7 [facility] Work Phone: Neutrophils/100 WBC (Bld) 73.1 % 47-70 [facility] Work Phone: [phone] WBC (Bld) [#/Vol] 9.5 10*3/uL 4.4-11.[address] [facility] Work Phone: Blood erythrocytes count (nu mber/volume)on 01-01-2022 RBC (Bld) [#/Vol] 3.49 10*6/uL 4.2-5.4 [facility] Work Phone: Blood hemoglobin measurement (mass/volume)on 01-01-2022 Hemoglobin (Bld) [Mass/Vol] 11.5 g/dL 12.0-15.0 [facility] Work Phone: Blood lymphocytes/100 leukoc yteson 01-01-2022 Lymphocytes/100 WBC (Bld) 15.2 % 19-41 [facility] Work Phone: Blood monocytes/100 leukocyt eson 01-01-2022 Monocytes/100 WBC (Bld) 10.0 % 0-10 [facility] Work Phone: [phone] Blood platelet mean volumeon 01-01-2022 Platelet mean volume (Bld) [Entitic vol] 11.5 fL 6.2-12.0 [facility] Work Phone: [phone] CBC W/Diff, Automatedon 12-12 Absolute Lymph 1.44 X10 3/uL Normal 0.83-4.51 [facility] Comment on above: Performed By: #### L 100.0100, BTS #### [facility] [address] [place], [address] Absolute Neut 6.9 X10 3/uL Normal 2.0-7.7 [facility] Comment on above: Performed By: #### L 100.0100, BTS #### [facility] [address] [place], [address] Basophils/100 WBC (Bld) 0.2 % Normal 0-1 [facility] Comment on above: Performed By: #### L 100.0100, BTS #### [facility] [address] [place], [address] Eosinophils/100 WBC (Bld) 1.1 % Normal 0-5 [facility] Comment on above: Performed By: #### L 100.0100, BTS #### [facility] [address] [place], [address] Erythrocyte distribution width (RBC) [Ratio] 13.0 % Normal 11.6-14.6 [facility] Comment on above: Performed By: #### L 100.0100, BTS #### [facility] [address] [place], [address] Hematocrit (Bld) [Volume fraction] 34.0 % Low 37-47 [facility] Comment on above: Performed By: #### L 100.0100, BTS #### [facility] [address] [place], [address] Hemoglobin (Bld) [Mass/Vol] 11.5 g/dL Low 12.0-15.0 [facility] Comment on above: Performed By: #### L 100.0100, BTS #### [facility] [address] [place], [address] IG% 0.400 Normal 0.0-0.9 [facility] Comment on above: Result Comment: IG% - Immature Granulocytes (promyelocytes, myelocytes and metamyelocytes) > 1% indicates that a LEFT SHIFT is Present. Performed By: #### L 100.0100, BTS #### [facility] [address] [place], [address] Lymphocytes/100 WBC (Bld) 15.2 % Low 19-41 [facility] Comment on above: Performed By: #### L 100.0100, BTS #### [facility] [address] [place], [address] MCH (RBC) [Entitic mass] 33.0 pg High 27.0-32.0 [facility] Comment on above: Performed By: #### L 100.0100, BTS #### [facility] [address] [place], [address] MCHC (RBC) [Mass/Vol] 33.8 g/dL Normal 32-36 [facility] Comment on above: Performed By: #### L 100.0100, BTS #### [facility] [address] [place], [address] MCV (RBC) [Entitic vol] 97.4 fL Normal 81-99 [facility] Comment on above: Performed By: #### L 100.0100, BTS #### [facility] [address] [place], [address] Monocytes/100 WBC (Bld) 10.0 % Normal 0-10 [facility] Comment on above: Performed By: #### L 100.0100, BTS #### [facility] [address] [place], [address] Neutrophils/100 WBC (Bld) 73.1 % High 47-70 [facility] Comment on above: Performed By: #### L 100.0100, BTS #### [facility] [address] [place], [address] Nucleated RBC (Bld) [#/Vol] 0 10*3/uL Normal 0-5 [facility] Comment on above: Performed By: #### L 100.0100, BTS #### [facility] [address] [place], [address] Platelet mean volume (Bld) [Entitic vol] 11.5 fL Normal 6.2-12.0 [facility] Comment on above: Performed By: #### L 100.0100, BTS #### [facility] [address] [place], [address] Platelets (Bld) [#/Vol] 222 10*3/uL Normal 150-450 [facility] Comment on above: Performed By: #### L 100.0100, BTS #### [facility] [address] [place], [address] RBC (Bld) [#/Vol] 3.49 10*6/uL Low 4.2-5.4 [facility] Comment on above: Performed By: #### L 100.0100, BTS #### [facility] [address] [place], [address] RDW SD 45.8 fl High 35.1-43.9 [facility] Comment on above: Performed By: #### L 100.0100, BTS #### [facility] [address] [place], [address] WBC (Bld) [#/Vol] 9.5 10*3/uL Normal 4.4-11.[address] [facility] Comment on above: Performed By: #### L 100.0100, BTS #### [facility] [address] [place], [address] COVID 19 AG RAPID (WALTER Hollis)on 01-01-2022 SARS-CoV-2 (COVID-19) RNA CHON+probe Ql (Unsp spec) *Negative results from patients with symptom onset beyond five days should be treated as presumptive and confirmed by a molecular assay if clinically necessary. Negative results should not be used as the sole basis for treatment or for patient management. SARS-CoV-2 Ag Resp Ql IA.rapid *Positive results do not differentiate between SARS-CoV and SARS-CoV-2. If differentiation of the specific SARS virus is desired an additional sample and an additional order is required. SARS-CoV-2 Ag Resp Ql IA.rapid * This test has not been FDA cleared or approved; the test has been authorized by FDA under an Emergency Use Authorization (EAU) for use by laboratories certified under CLIA that meet the requirements to perform moderate, high, or waived complexity tests. SARS-CoV-2 Ag Resp Ql IA.rapid Normal Reference Range: Negative SARS-CoV-2 (COVID 19) Negative RAPID METHOD Quidel Gracia Analyzer BHUPENDRA Normal [facility] Comment on above: Performed By: #### M 100.505 #### [facility] [address] [place], [address] Determination of erythrocyte mean corpuscular volume (MCV)on 01-01-2022 MCV (RBC) [Entitic vol] 97.4 fL 81-99 [facility] Work Phone: H AND P Exam - OB/GYNon 12-12 H&P Exam - MEAT GRADER [facility] Medical Records Department [address] [place] [address] H P Exam - MEAT GRADER 01/01/22 191 MR#: [id number] Acct: [id number] Name: LANA SALGUERO Rep #: [id number] : 1990 31 From: Pamela Barrios CNM PCP: Status:ADM IN Location: [id number] HPI - General General Date of Admission: 01/01/22 HPI Narrative LANA SALGUERO, is a 31 F at 38.5 weeks gestation who presents for induction of labor for IUGR. EFW 6%, BLAINE normal. complicated by transfer of care at 36 weeks gestation and bilobed placenta with possible velamentous insertion seen via ultrasound. Maternal Data Information SUDEEP Calculator Estimated Delivery Date Method Current WG Current Estimate 01/10/22 Manual 38w 5d PFSH PFSH Social History Smoking Status: Former smoker ROS Eyes Eyes: Denies blurry vision, change in vision or spots in vision ENT HEENT: Denies dizziness or headache(s) Cardiovascular Cardiovascular: Denies abdominal pain, chest pain or dyspnea Respiratory/Chest Respiratory/Chest: Denies cough, dyspnea, shortness of breath at rest or shortness of breath with exertion Gastrointestinal Gastrointestinal: Denies abdominal pain, diarrhea or vomiting Genitourinary Genitourinary: Denies change in urinary stream, difficulty urinating or dysuria Musculoskeletal Musculoskeletal: Reports none Integumentary Integumentary: Denies rash Neurologic Neurologic: Denies dizziness, headache(s), memory loss or weakness Psychiatric Psychiatric: Reports none Physical Exam Const alert, oriented x3 and no apparent distress General Appearance: cooperative Orientation / Consciousness: awake Exam Limitations: no limitations HEENT normocephalic Head and Scalp: normal to inspection Eyes General Eye: normal appearance of both eyes Neck full ROM and no lymphadenopathy Lymph Lymphatic: no lymphadenopathy noted Chest inspection of chest normal Resp normal respiratory effort, normal air movement and clear to auscultation bilaterally Effort and Inspection: able to speak in complete sentences and symmetric chest movement Cardio regular rate and regular rhythm GI normal to inspection, nondistended, normoactive bowel sounds Manual OB Exam: presentation cephalic Back/Spine normal ROM Extremity full ROM and no calf tenderness Skin no rashes or lesions noted General Skin Exam: no breakdown Neuro oriented x3 and CN's II-XII intact bilaterally Psych mental status grossly normal and thought process normal Labs Labs Labs: Chlamydia DNA (CHON) Negative (Negative-) Neisseria gonorrhoeae DNA (CHON) Negative (Negative-) O negative Rubella immune HB neg HC neg GBS negative HIV NR Assessment Plan (1) 38 weeks gestation of : (2) Encounter for induction of labor: (3) IUGR (intrauterine growth restriction): (4) Bilobed placenta: (5) Velamentous insertion of umbilical cord: PLAN: Plan Admit to labor and delivery Cytotec PO every 4 hours Routine labs Start IV fluid and titrate per orders GBS negative Dr. Ghotra notified of admission and is collaborating physician 01/01/222019 Cosigner Signature (if applicable): CC: AUGUSTO Barrios Signed Normal [facility] Hematocrit Auto (Bld) [Volum e fraction]on 01-01-2022 Hematocrit (Bld) [Volume fraction] 34.0 % 37-47 [facility] Work Phone: Laboratory - Hematology and Cell countson 01-01-2022 Erythrocyte distribution width (RBC) [Entitic vol] 45.8 fL 35.1-43.9 [facility] Work Phone: Erythrocyte distribution width (RBC) [Ratio] 13.0 % 11.6-14.6 [facility] Work Phone: Immature granulocytes/100 WBC (Bld) 0.400 % 0.0-0.9 [facility] Work Phone: Comment on above: IG% - Immature Granu locytes (promyelocytes, myelocytes and metamyelocytes) > 1% indicates that a LEFT SHIFT is Present. MCH (RBC) [Entitic mass] 33.0 pg 27.0-32.0 [facility] Work Phone: Nucleated RBC/100 WBC (Bld) [Ratio] 0 % 0-5 [facility] Work Phone: MCHC Auto (RBC) [Mass/Vol]on 01-01-2022 MCHC (RBC) [Mass/Vol] 33.8 g/dL 32-36 [facility] Work Phone: Platelets bldon 01-01-2022 Platelets (Bld) [#/Vol] 222 10*3/uL 150-450 [facility] Work Phone: Type AND Screenon 01-01-2022 Ab SCREEN GEL Negative Normal [facility] Comment on above: Order Comment: Labor Performed By: #### L 100.0100, BTS #### [facility] [address] [place], [address] ABO and Rh group Nom (Bld) Blood group O Rh(D) negative Normal [facility] Comment on above: Order Comment: Labor Performed By: #### L 100.0100, BTS #### [facility] [address] [place], [address] URINE OB DIP B/Oon Glucose Ql (U) Negative Neg mg/dL [facility] Protein.monoclonal (U) [Mass/Vol] Negative Neg mg/dL [facility] OBSTETRIC ULTRASOUND WHIon 0 12-19-2021 [facility] Vital Signs Date Time Vital Sign Value Performing Clinician Faci lity 04-23-2024 10:23-0500 Body mass index (BMI) [Ratio] 20.65 kg/m2 Paul Quezada MD Work Phone: [facility] 04-23-2024 10:23-050 Body weight 53.52 kg Paul Quezada MD Work Phone: [facility] 04-23-2024 10:23-0500 Diastolic blood pressure 62 mm[Hg] Paul Quezada MD Work Phone: [facility] 04-23-2024 10:23-0500 Systolic blood pressure 100 mm[Hg] Paul Quezada MD Work Phone: [facility] 04-06-2024 10:12-050 Body height 161 cm Luis Noel APRN.CASING WRINGER OPERATOR Work Phone: [facility] 04-06-2024 10:12-0500 Body mass index (BMI) [Ratio] 21.24 kg/m2 Luis Noel APRN.CASING WRINGER OPERATOR Work Phone: [facility] 04-06-2024 10:12-0500 Body weight 55.07 kg Luis Haury GEOLOGICAL ENGINEERING TEACHER.CASING WRINGER OPERATOR Work Phone: [facility] 04-06-2024 10:12-0500 Diastolic blood pressure 60 mm[Hg] Luis Haury GEOLOGICAL ENGINEERING TEACHER.CASING WRINGER OPERATOR Work Phone: [facility] 04-06-2024 10:12-0500 Systolic blood pressure 110 mm[Hg] Luis Haury GEOLOGICAL ENGINEERING TEACHER.CASING WRINGER OPERATOR Work Phone: [facility] 01-27-2024 14:36-0400 Body height 160.7 cm Luis Haury GEOLOGICAL ENGINEERING TEACHER.CASING WRINGER OPERATOR Work Phone: [facility] 01-27-2024 14:36-0400 Body mass index (BMI) [Ratio] 20.56 kg/m2 Luis Haury GEOLOGICAL ENGINEERING TEACHER.CASING WRINGER OPERATOR Work Phone: [facility] 01-27-2024 14:36-0400 Body weight 53.07 kg Luis Haury GEOLOGICAL ENGINEERING TEACHER.CASING WRINGER OPERATOR Work Phone: [facility] 01-27-2024 14:36-0400 Diastolic blood pressure 64 mm[Hg] Luis Haury GEOLOGICAL ENGINEERING TEACHER.CASING WRINGER OPERATOR Work Phone: [facility] 01-27-2024 14:36-0400 Systolic blood pressure 102 mm[Hg] Luis Haury GEOLOGICAL ENGINEERING TEACHER.CASING WRINGER OPERATOR Work Phone: [facility] 04-18-2022 11:00-0500 Body weight 54.88 kg Paul Quezada MD Work Phone: [facility] 04-18-2022 11:00-0500 Diastolic blood pressure 66 mm[Hg] Paul Quezada MD Work Phone: [facility] 04-18-2022 11:00-0500 Systolic blood pressure 102 mm[Hg] Paul Quezada MD Work Phone: [facility] 04-10-2022 10:37-0500 Body weight 55.93 kg Paul Quezada MD Work Phone: [facility] 04-10-2022 10:37-0500 Diastolic blood pressure 60 mm[Hg] Paul Quezada MD Work Phone: [facility] 04-10-2022 10:37-0500 Systolic blood pressure 98 mm[Hg] Paul Quezada MD Work Phone: [facility] 03-27-2022 13:47-0500 Body weight 57.15 kg Paul Quezada MD Work Phone: [facility] 03-27-2022 13:47-0500 Diastolic blood pressure 72 mm[Hg] Paul Quezada MD Work Phone: [facility] 03-27-2022 13:47-0500 Systolic blood pressure 110 mm[Hg] Paul Quezada MD Work Phone: [facility] 02-13-2022 09:22-0400 Body height 159.4 cm Paul Quezada MD Work Phone: [facility] 02-13-2022 09:22-0400 Body weight 59.42 kg Paul Quezada MD Work Phone: [facility] 01-16-2022 10:43-0400 Body weight 62.6 kg Paul Quezada MD Work Phone: [facility] 01-16-2022 10:43-0400 Diastolic blood pressure 68 mm[Hg] Paul Quezada MD Work Phone: [facility] 01-16-2022 10:43-0400 Systolic blood pressure 108 mm[Hg] Paul Quezada MD Work Phone: [facility] 01-04-2022 13:52-0400 Body temperature 98 [degF] [facility] Work Phone: 01-04-2022 13:52-0400 Diastolic blood pressure 76 mm[Hg] [facility] Work Phone: 01-04-2022 13:52-0400 Heart rate 87 /min [facility] Work Phone: 01-04-2022 13:52-0400 Respiratory rate 16 /min [facility] Work Phone: 01-04-2022 13:52-0400 SaO2% (BldA) [Mass fraction] 98 % [facility] Work Phone: 01-04-2022 13:52-0400 Systolic blood pressure 122 mm[Hg] [facility] Work Phone: 01-01-2022 20:27-0400 Body height 160.02 cm [facility] Work Phone: 01-01-2022 20:27-0400 Body mass index (BMI) [Ratio] 28.1 kg/m2 [facility] Work Phone: 01-01-2022 20:27-0400 Body weight 72.03 kg [facility] Work Phone: 12-28-2021 09:14-0400 Body weight 71.67 kg Paul Quezada MD Work Phone: [facility] 12-28-2021 09:14-0400 Diastolic blood pressure 78 mm[Hg] Paul Quezada MD Work Phone: [facility] 12-28-2021 09:14-0400 Systolic blood pressure 122 mm[Hg] Paul Quezada MD Work Phone: [facility] 12-19-2021 13:40-0400 Body weight 69.4 kg Mary Carmen Beckman MD Work Phone: [facility] 12-14-2021 13:11-0400 Body weight 69.85 kg Paul Quezada MD Work Phone: [facility] 12-14-2021 13:11-0400 Diastolic blood pressure 60 mm[Hg] Paul Quezada MD Work Phone: [facility] 12-14-2021 13:11-0400 Systolic blood pressure 104 mm[Hg] Paul Quezada MD Work Phone: [facility] Encounters Encounter Date Encounter Type Care Provider Facility Start: 03-17-2025 End: 11-05-2025 [facility] Facility:[facility] Start: 03-03-2025 End: 03-03-2025 [facility] Facility:[facility] Start: 04-23-2024 End: 04-23-2024 ambulatory LUISMICHELLE NOEL Facility:[facility] Start: 04-23-2024 End: 04-23-2024 Patient encounter procedure Paul Quezada MD Work Phone: OB/Gynecology Comment on above: Incomplete spontaneo us without complication (Primary Dx) Start: 04-17-2024 End: 04-17-2024 Telephone encounter Luis Noel APRN.CASING WRINGER OPERATOR Work Phone: OB/Gynecology Comment on above: Results Start: 04-17-2024 End: 04-17-2024 ambulatory Development [employer] Work Phone: OB/Gynecology Start: 04-17-2024 End: 04-17-2024 Patient encounter procedure Development Engineer [employer] Work Phone: OB/Gynecology Start: 04-15-2024 End: 04-15-2024 ambulatory LUISMICHELLE ESCALANTESANGEETA Facility:[facility] Start: 04-13-2024 End: 04-16-2024 Telephone encounter Dona Dc APRN.CNM Work Phone: OB/Gynecology Comment on above: Patient Question Start: 04-13-2024 End: 04-13-2024 ambulatory LUIS NOEL Facility:[facility] Start: 04-07-2024 End: 04-07-2024 Telephone encounter Luis Noel APRN.CASING WRINGER OPERATOR Work Phone: Obstetrics/Gynecology Comment on above: PRAF Start: 04-06-2024 End: 04-06-2024 ambulatory LUIS BORISSANGEETA Facility:[facility] Start: 04-06-2024 End: 04-06-2024 Patient encounter procedure Luis Noel APRN.CASING WRINGER OPERATOR Work Phone: OB/Gynecology Comment on above: Encounter for superv ision of high risk in first trimester, antepartum (Primary Dx); 4 weeks gestation of ; with uncertain dates in first trimester; History of intrauterine growth restriction in prior , currently ; History of depression; History of placental abnormality; Rh negative state in antepartum period; History of environmental allergies; Nausea and vomiting during ; History of miscarriage; Vulvar lesion Start: 04-02-2024 End: 04-02-2024 Telephone encounter Luis Noel APRN.CNP Work Phone: OB/Gynecology Comment on above: Appointment Start: 01-27-2024 End: 01-27-2024 Patient encounter procedure Luis Noel APRN.CASING WRINGER OPERATOR Work Phone: OB/Gynecology Comment on above: Encounter for gyneco logical examination (general) (routine) without abnormal findings (Primary Dx); Screening for cervical cancer; Encounter for screening for human papillomavirus (HPV); Decreased libido Start: 01-27-2024 End: 01-27-2024 Patient encounter status Luis Noel APRN.CNP Work Phone: [facility] Start: 08-09-2022 ambulatory Sapphire gibson MD Work Phone: URO/Gynecology Comment on above: Still need a visit w vinnie Best? Start: 08-09-2022 E-mail encounter fro m caregiver Sapphire Best MD Work Phone: [facility] Start: 05-11-2022 E-mail encounter fro m caregiver Ant Stewart APRN.CNP Work Phone: [facility] Start: 05-11-2022 Follow-up encounter Ant gill APRN.CASING WRINGER OPERATOR Work Phone: Urogynecology Comment on above: Follow-up appointmen t Start: 05-10-2022 End: 05-10-2022 ambulatory ANT STEWART Facility:[facility] Start: 05-08-2022 E-mail encounter fro m caregiver [facility] Provider [facility] TOLEDO Start: 05-08-2022 Patient encounter procedure [facility] Provider Urology Comment on above: Care Clin ic Questionaire Start: 05-02-2022 Telephone encounter Ant gill APRN.CNP Work Phone: Urology Comment on above: PPCC Consult with Jeffy Stewart Start: 04-26-2022 Telephone encounter [facility] Provider URO /Gynecology Comment on above: Care Coordination Start: 04-26-2022 End: 04-26-2022 Patient encounter procedure Paul Quezada MD Work Phone: OB/Gynecology Comment on above: Granulation tissue a t obstetrical laceration site (Primary Dx) Start: 04-18-2022 End: 04-18-2022 Patient encounter procedure Paul Quezada MD Work Phone: OB/Gynecology Comment on above: Granulation tissue a t obstetrical laceration site (Primary Dx) Start: 04-11-2022 ambulatory Paul bassett MD Work Phone: OB/Gynecology Comment on above: Medication Start: 04-10-2022 End: 04-10-2022 Patient encounter procedure Paul Quezada MD Work Phone: OB/Gynecology Comment on above: Vaginal pain (Primar y Dx); Granulation tissue at obstetrical laceration site Start: 03-27-2022 End: 03-27-2022 Patient encounter procedure Paul Quezada MD Work Phone: OB/Gynecology Comment on above: Granulation tissue a t obstetrical laceration site (Primary Dx) Start: 02-13-2022 End: 02-13-2022 Patient encounter procedure Paul Quezada MD Work Phone: OB/Gynecology Comment on above: care and examination (Primary Dx) Start: 01-30-2022 Telephone encounter Pamela pachecosimeon HECTOR Work Phone: OB/Gynecology Comment on above: Early ; Pa tient Question Start: 01-16-2022 End: 01-16-2022 Patient encounter procedure Paul Quezada MD Work Phone: OB/Gynecology Comment on above: exam (Yadira vijay Dx) Start: 01-03-2022 ambulatory Paul bassett MD Work Phone: OB/Gynecology Comment on above: Ob Delivery Note Start: 01-01-2022 End: 01-04-2022 Evaluation and management of inpatient Pamelahaseeb Barrios Facility:[facility] Start: 01-01-2022 End: 01-04-2022 [facility] Start: 12-28-2021 Telephone encounter Pamela quevedo APRN.CNM Work Phone: OB/Gynecology Comment on above: Orders Start: 12-28-2021 End: 12-28-2021 Patient encounter procedure Paul Quezada MD Work Phone: OB/Gynecology Comment on above: with prena heather care elsewhere, antepartum (Primary Dx); Supervision of high risk in third trimester; 38 weeks gestation of Intrauterine growth restriction (IUGR) affecting care of mother, third trimester, single gestation (Primary Dx) Start: 12-19-2021 End: 12-19-2021 Patient encounter procedure Mary Carmen Beckman MD Work Phone: Maternal Medicine Comment on above: with prena heather care elsewhere, antepartum (Primary Dx); 36 weeks gestation of Start: 12-15-2021 Telephone encounter Youth Services Specialist RN Obstetrics/Gynecology Comment on above: PRAF FORM Start: 12-14-2021 ambulatory [facility] Provider OB/Gynecol beverly Comment on above: Care Johnathan nion Enrollment Start: 12-14-2021 E-mail encounter aure jordan caregiver [facility] Provider [facility] Start: 12-14-2021 Telephone encounter Paul Quezada MD Work Phone: OB/Gynecology Comment on above: Request Outside [facility] Records Start: 12-14-2021 End: 12-14-2021 Patient encounter procedure Paul Quezada MD Work Phone: OB/Gynecology Comment on above: with prena heather care elsewhere, antepartum (Primary Dx); 36 weeks gestation of ; Supervision of high risk in third trimester; Marginal insertion of umbilical cord affecting management of mother in third trimester Start: 12-14-2021 End: 12-14-2021 Nursing evaluation of patient and report Nurse Pnob [facility] Work Phone: OB/Gynecology Comment on above: with prena heather care elsewhere, antepartum (Primary Dx) Procedures Date Procedure Procedure Detail Performing Clinician Start: 03-17-2025 Antibody screen LUIS LORA Comment on above: Order Comment: Speci men Type: BLOOD SPECIMEN Ordering Facility: [facility] Address: [address] [place] [address] Performed By: #### T SPN #### [facility] CLIA [id number] [address] [place] [address] OF ANTHONY Start: 04-17-2024 Us pelvic nonobstetr ic real-time image complete Luis Noel CASING WRINGER OPERATOR Work Phone: Start: 04-06-2024 Antibody screen LUIS LORA Comment on above: Order Comment: Speci men Type: BLOOD SPECIMEN Ordering Facility: [facility] Address: [address] [place] [address] Performed By: #### T SPN #### [facility] CLIA [id number] [address] [place] [address] OF ANTHONY Start: 12-28-2021 URINE OB DIP B/O Robert Quezada MD Work Phone: Start: 12-19-2021 Us preg uterus after 1st trimest 05/13 gestation Paul Quezada MD Work Phone: Viral antigen assay Plan of Treatment Date Care Activity Detail Author Start: 09-11-2031 Urine microalbumin profile DTaP,Tdap,Td Vaccine (2 - Td or Tdap) [facility] Start: 01-26-2029 Screening for malign ant neoplasm of cervix Cervical Cancer Screening [facility] Start: 07-27-2024 HPV TESTING HPV TESTING [facility] Start: 07-27-2024 PAP TESTING PAP TESTING [facility] Start: 07-27-2024 Screening for malign ant neoplasm of cervix Cervical Cancer Screening [facility] Start: 06-05-2024 End: 06-05-2024 Patient encounter procedure Maternal Medicine Comment on above: Nuchal OB Routine Start: 05-07-2024 End: 05-07-2024 Patient encounter procedure 05/07/2024 1:10 PM EST Routine Office Visit OB/Gynecology [address] [place] [address] Paul Quezada MD [address] [place] [address] New OB - LMP 03/03/2024 OB/Gynecology Comment on above: New OB - LMP 024 Start: 04-23-2024 End: 04-23-2024 Patient encounter procedure 04/23/2024 10:30 AM EST Routine Office Visit OB/Gynecology [address] [place] [address] Paul Quezada MD [address] [place] [address] OB routine OB/Gynecology Comment on above: OB routine Start: 04-23-2024 End: 04-23-2024 ambulatory 04/23/2024 10:00 AM EST Procedure OB/Gynecology [address] [place] [address] Remote, Development Engineer [employer] [address] [place] [address] Dating US OB/Gynecology Comment on above: Dating US Start: 04-17-2024 End: 04-17-2024 ambulatory OB/Gynecology Comment on above: Dating US Start: 04-16-2024 End: 04-16-2025 US Pelvis PELVIC US WHI Anc Imaging Routine with uncertain dates, antepartum Bleeding in early Expected: 04/16/2024, Expires: 04/16/2025 [facility] Comment on above: Expected: 04/16/2024 , Expires: 04/16/2025 Start: 04-06-2024 End: 07-06-2024 ANEMIA REFLEX PANEL [facility] Work Phone: Comment on above: Expected: 04/06/2024 , Expires: 07/06/2024 Start: 04-06-2024 End: 07-06-2024 CARRIER SCREEN, STANDARD [facility] Comment on above: Expected: 04/06/2024 , Expires: 07/06/2024 Start: 04-06-2024 End: 07-06-2024 Chromosome 21 trisomy [Presence] in Blood or Tissue by Cytogenetics [id number] PLUS Lab Routine Encounter for supervision of high risk in first trimester, antepartum 4 weeks gestation of Expected: 04/06/2024, Expires: 07/06/2024 [facility] Comment on above: Expected: 04/06/2024 , Expires: 07/06/2024 Start: 04-06-2024 End: 07-06-2024 Hemoglobin A1c in Blood [facility] Comment on above: Expected: 04/06/2024 , Expires: 07/06/2024 Start: 04-06-2024 End: 07-06-2024 Hepatitis B virus surface Ag [Presence] in Serum [facility] Comment on above: Expected: 04/06/2024 , Expires: 07/06/2024 Start: 04-06-2024 End: 07-06-2024 Hepatitis C virus Ab [Presence] in Serum [facility] Comment on above: Expected: 04/06/2024 , Expires: 07/06/2024 Start: 04-06-2024 End: 07-06-2024 HIV 1+2 Ab [Presence] in Serum or Plasma by Immunoassay [facility] Comment on above: Expected: 04/06/2024 , Expires: 07/06/2024 Start: 04-06-2024 End: 04-06-2025 NUCHAL TRANSLUCENCY WHI NUCHAL TRANSLUCENCY WHI Anc Imaging Routine Encounter for supervision of high risk in first trimester, antepartum with uncertain dates in first trimester History of intrauterine growth restriction in prior , currently History of depression Expected: 04/06/2024, Expires: 04/06/2025 [facility] Comment on above: Expected: 04/06/2024 , Expires: 04/06/2025 Start: 04-06-2024 End: 07-06-2024 RUBELLA IGG ANTIBODY [facility] Comment on above: Expected: 04/06/2024 , Expires: 07/06/2024 Start: 04-06-2024 End: 07-06-2024 SYPHILIS TREPONEMAL W/REFLEX [facility] Comment on above: Expected: 04/06/2024 , Expires: 07/06/2024 Start: 04-06-2024 End: 07-06-2024 TYPE + SCREEN [facility] Comment on above: Expected: 04/06/2024 , Expires: 07/06/2024 Start: 04-06-2024 End: 04-06-2025 US Pelvis PELVIC US WHI Anc Imaging Routine Encounter for supervision of high risk in first trimester, antepartum 4 weeks gestation of with uncertain dates in first trimester Expected: 04/06/2024, Expires: 04/06/2025 [facility] Comment on above: Expected: 04/06/2024 , Expires: 04/06/2025 Start: 04-06-2024 End: 04-06-2024 Patient encounter procedure 04/06/2024 10:15 AM EST Initial Office Visit OB/Gynecology [address] [place], [place] [id number] Luis Noel APRN.CASING WRINGER OPERATOR [address] [place] [address] New OB - LMP 03/03/2024 OB/Gynecology Comment on above: New OB - LMP 024 Start: 01-27-2024 End: 04-27-2024 25-hydroxyvitamin D3 [Mass/volume] in Serum or Plasma [facility] Comment on above: Expected: 01/27/2024 , Expires: 04/27/2024 Start: 01-27-2024 End: 04-27-2024 Hemoglobin A1c in Blood [facility] Comment on above: Expected: 01/27/2024 , Expires: 04/27/2024 Start: 01-27-2024 End: 04-27-2024 Thyrotropin [Units/volume] in Serum or Plasma [facility] Work Phone: Comment on above: Expected: 01/27/2024 , Expires: 04/27/2024 Start: 01-27-2024 End: 04-27-2024 Thyroxine (T4) free [Mass/volume] in Serum or Plasma [facility] Comment on above: Expected: 01/27/2024 , Expires: 04/27/2024 Start: 01-12-2024 Covid-19 Vaccine () Covid-19 Vaccine () [facility] Start: 01-12-2024 Covid-19 Vaccine ( season) Covid-19 Vaccine ( season) [facility] Start: 01-12-2024 Influenza vaccination Influenza Vacc ine (#1) [facility] Start: 05-13-2022 DEPRESSION ASSESSMENT DEPRESSION ASS ESSMENT [facility] Start: 01-11-2022 Influenza vaccination INFLUENZA (#1) [facility] Start: 01-04-2022 Patient discharge [facility] Work Phone: Start: 01-03-2022 Administration of bl ood product [facility] Work Phone: Start: 01-03-2022 Administration of medication [facility] Work Phone: Start: 01-03-2022 Application of ice collar, cap or bag [facility] Work Phone: Start: 01-03-2022 Catheterization of vein [facility] Work Phone: Start: 01-03-2022 Introduction of urin marline catheter [facility] Work Phone: Start: 01-03-2022 Measuring intake and output [facility] Work Phone: Start: 01-03-2022 Notification of physician [facility] Work Phone: Start: 01-03-2022 Procedure discontinued [facility] Work Phone: Start: 01-03-2022 Provision of activit y privileges [facility] Work Phone: Start: 01-03-2022 Vital signs measurements [facility] Work Phone: Start: 01-03-2022 End: 01-03-2022 [facility] Work Phone: Start: 01-01-2022 Admission procedure [facility] Work Phone: Start: 05-13-2021 DEPRESSION ASSESSMENT DEPRESSION ASS ESSMENT [facility] Start: 2010 Hepatitis B Vaccine (1 of 3 - 19+ 3-dose series) Hepatitis B Vaccine (1 of 3 - 19+ 3-dose series) [facility] Start: 2010 Urine microalbumin profile DTAP,TDAP,TD (1 - Tdap) [facility] Start: 2009 Anxiety Screening Anxiety Screening [facility] Start: 2009 Depression Screening Depression Scre ening [facility] Start: 2003 Adult depression screening assessment DEPRESSION SCREENING [facility] Start: 1991 COVID-19 VACCINE (#1) [facility] Start: 1991 HEPATITIS B (1 of 3 - 3-dose series) HEPATITIS B (1 of 3 - 3-dose series) [facility] Bacteria identified in Urine by Culture URINE CULTURE Microbiology Routine Encounter for supervision of high risk in first trimester, antepartum with uncertain dates in first trimester History of intrauterine growth restriction in prior , currently History of depression 04/06/2024 10:58 AM [facility] BIOPHYSICAL PROFILE US WHI BIOPHYSICAL PROFILE US I Anc Imaging Routine Supervision of high risk in third trimester Marginal insertion of umbilical cord affecting management of mother in third trimester Ordered: 12/28/2021 [facility] Work Phone: Comment on above: Ordered: 12/28/2021 Biopsy vulva/perineu m 1 lesion spx BIOPSY OF VULVA Procedures Routine Vulvar lesion Ordered: 04/06/2024 [facility] Comment on above: Ordered: 04/06/2024 Chlamydia trachomatis+Neisseria gonorrhoeae DNA [Presence] in Unspecified specimen by CHON with probe detection GONORRHEA/CHLAMYDIA NAAT Lab Routine Encounter for supervision of high risk in first trimester, antepartum with uncertain dates in first trimester History of intrauterine growth restriction in prior , currently History of depression 04/06/2024 10:58 AM EST [facility] End: 04-16-2025 Choriogonadotropin.beta subunit [Units/volume] in Serum or Plasma HCG QUANTITATIVE Lab Routine with uncertain dates, antepartum Bleeding in early 2x per week for 6 Occurrences starting 04/16/2024 until 04/16/2025 [facility] Work Phone: Comment on above: 2x per week for 6 Oc currences starting 04/16/2024 until 04/16/2025 End: 01-18-2022 nonstress test NON-STRESS TEST Procedures Routine with care elsewhere, antepartum 36 weeks gestation of Supervision of high risk in third trimester Marginal insertion of umbilical cord affecting management of mother in third trimester Once per week for 5 Occurrences starting 12/14/2021 until 01/18/2022 [facility] Work Phone: Comment on above: Once per week for 5 Occurrences starting 12/14/2021 until 01/18/2022 Microscopic observat ion [Identifier] in Vaginal fluid by Gram stain BACT/COURTNEY VAG GRAM STAIN Microbiology Routine Granulation tissue at obstetrical laceration site 03/27/2022 4:05 PM EST [facility] Work Phone: OBSTETRIC ULTRASOUND WHI OBSTETR IC ULTRASOUND WHI Anc Imaging Routine with care elsewhere, antepartum 36 weeks gestation of Supervision of high risk in third trimester Ordered: 12/14/2021 [facility] Work Phone: Comment on above: Ordered: 12/14/2021 PAP TEST PAP TEST Lab Oniel martínez Screening for cervical cancer Encounter for screening for human papillomavirus (HPV) 01/27/2024 3:21 PM EDT [facility] ROUTINE, GR OUP B STREP PCR ROUTINE, GROUP B STREP PCR Microbiology Routine with care elsewhere, antepartum 36 weeks gestation of Supervision of high risk in third trimester 12/14/2021 2:18 PM EDT [facility] Work Phone: SURGICAL PATHOLOGY SURGICAL PATH OLOGY Lab Routine Vaginal pain Granulation tissue at obstetrical laceration site Ordered: 04/10/2022 [facility] Work Phone: Comment on above: Ordered: 04/10/2022 [facility] Immunizations Immunization Date Immunization Notes Care Provider Benji gonsalez 09-10-2021 tetanus toxoid, redu merrill diphtheria toxoid, and acellular pertussis vaccine, adsorbed [facility] Work Phone: Payers Date Payer Category Payer Self-pay 2019 Medicaid [employer] [employer] [place] [employer] [id number] 2019-Present [phone] [address] [place] [address] Medicaid [id number] 2019 Medicaid [id number] 2012 Medicaid [id number] Unknown [id number] Social History Date Type Detail Facility Start: 07-28-2019 End: 04-06-2024 Tobacco smoking status NHIS Ex-smoker [facility] Start: 05-13-2008 End: 05-13-2018 History of tobacco use Current smoker [facility] Start: 05-13-2008 End: 05-13-2018 History of tobacco use Cigarette Smoker [facility] Start: 07-28-2019 End: 04-06-2024 Tobacco use and exposure Smokeless tobacco non-user [facility] Start: 12-14-2021 End: 04-23-2024 Alcohol intake Ex-drinker (finding) [facility] Start: 12-14-2021 Education 16 [facility] Start: 04-19-2021 [facility] Start: 1990 Sex Assigned At Female [facility] Start: 12-04-2021 End: 03-27-2022 Exposure to SARS-CoV-2 (event) Not sure [facility] Work Phone: Start: 01-03-2022 Tobacco smoking stat us NMIS Unknown if ever smoked [facility] Work Phone: Start: 01-27-2024 End: 04-23-2024 History of Social function [facility] Start: 01-27-2024 End: 04-23-2024 Tobacco use panel [facility] National Score (1-10 0), lower number is lower risk 48 [facility] Start: 12-13-2021 Gender identity Identifies as female gender (finding) [facility] Start: 12-13-2021 Sexual orientation Heterosexual (lonny mistry) [facility] Goals Date Patient Goal Desired Activity /State Personal health goal Clinical Notes 12-14-2021 to 03-03-2025 Paul Quezada MD - 04/23/2024 11:15 AM ESTTelephone Encounter - Tanya Rosario RN - 04/17/2024 12:07 PM ESTTelephone Encounter - Tanya Rosario RN - 04/17/2024 12:07 PM EST Note Date & Type Note Facility 03-03-2025 Note HNO ID: [id number] Author: JADE SIMS LPN Service: ? Author Type: Licensed Nurse Type: Progress Notes Filed: 03/03/2025 09:45 Note Text: OB point of care ultrasound was performed. See imaging tab for details. Jade Sims LPN [facility] 03-01-2025 Note HNO ID: [id number] Author: PAMELA BARRIOS APRN.CNM Service: ? Author Type: [employer] Fin[employer] Type: Progress Notes Filed: 03/03/2025 09:45 Note Text: Unemployment Benefits Claims Taker offered: Patient declines. INITIAL OB ASSESSMENT HPI: Lana is a 35 year old White Female here to establish Obstetrical Care. Patient's last menstrual period was 01/02/2025 (exact date). from OB Dating Form. was planned Complaints: No OB History Gravida4 Para1 Term1 Preterm0 AB2 Living1 SAB2 IAB0 Ectopic0 Multiple0 Live Births1 Previous history: Prior : never History of 4th degree laceration: History question Answer Diagnosis Date Comment Perineal Laceration, 3rd or 4th degree No History of perineal laceration 04/06/2024 History of shoulder dystocia: Shoulder Dystocia Unanswered History of Hypertensive disorders including pre-eclampsia or gestational hypertension: Gestational Hypertension Unanswered Preeclampsia Unanswered History of gestational diabetes: Diabetes in Unanswered Patient's Risk Screening for delivery: Have you had a prior felipe between 20w and 36w6d? No How many pregnancies have you had before? 3 Did you have a previous baby with a GBS Infection? No Please select all that apply for any prior : N/A MEDICAL/PSYCHOSOCIAL HISTORY: Severe bleeding with delivery Unanswered History question Answer Diagnosis Date Comment Thyroid Disease No Thyroid disease 12/14/2021 Gestational Hypertension Unanswered Preeclampsia Unanswered Diabetes in Unanswered ABO/RH(D) Date Value Ref Range Status 03/22/2014 O NEG Final BMI 20.95 kg/(m2) Last Pap: 02/03/2024 History of abnormal pap: Abnormal Pap Yes Prior treatment for cervical dysplasia: Colposcopy Last HPV: 02/03/2024 History of STDs: HPV postive Partner History of STDs: None Did you have a partner with Herpes? No Tobacco use: No E-Cigarette/Vaping Use: No Caffeine use: Yes Drug use: No Alcohol use: No Multivitamin with Folic acid: Yes Would refuse blood transfusion if medically necessary: No Social Needs: How often does this describe you? I don't have enough money to pay my bills: Never Within the past 12 months, have you worried that your food would run out before you had money to buy more? Never In the past 12 months, has lack of reliable transportation kept you from going to medical appointments or work, or from getting things needed for daily living? Never In the past 12 months, have you had any concerns about having a place to live, or about the condition or quality of your housing? Never Would you like more information on any of the following (please check all that apply)? Centering (group care classes) Social History: Do you have any history of depression, anxiety, PTSD, or other mood problems? No Do you have a history of abuse or trauma that may impact your experience? No Are you currently employed? No Depression/Anxiety Screening: denies symptoms of depression. OB Depression and Anxiety Screening- This Encounter Feeling down, depressed, or hopeless: Not at all Little interest or pleasure in doing things: Not at all Feeling nervous, anxious, or on edge Not at all Not being able to stop or control worrying Not at all Anxiety Pre-Screening Total (If >/= 3 additional questions will be reviewed) 0 Genetic Screening: Partner present: No Patient verbalized knowledge of partner family health history: Yes Do you or your partner have any personal or family history of defects not previously discussed: No Do you have history of a complicated by anomaly, genetic condition, or demise: No Preeclampsia Risk Screening: Screening for prevention of preeclampsia: High risk factors: None Moderate risk ractors: None OB Risk Screening: Completed, no positive findings documented. 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 (Patient not taking: Reported on 03/01/2025) 90 tablet 3 No current facility-administered medications for this visit. Allergies As of Date: 03/03/2025 (No Known Allergies) (more content not included)... [facility] 04-23-2024 Note HNO ID: [id number] Author: PAUL QUEZADA MD Service: ? Author Type: Physician Type: Progress Notes Filed: 04/23/2024 11:22 Note Text: Lana Salguero is a 34 year old female who presents for problem visit for f/u bleeding in .. HPI: 34-year-old 3 para 1 female who presents for vaginal bleeding in . She has been followed during this . Her hormone level is rising a little slower than expected. She then began spotting about 7 days ago. For 3 days she had heavier bleeding a lot heavier than her normal menses for her but not a lot of pain. She denies any fevers or chills. She denies any chest pain shortness of breath lightheadedness or dizziness. Today she has just light bleeding again . She questions why she has having a miscarriage. She has a history of a vacuum-assisted vaginal delivery 2021 and a remote history of 1 miscarriage in the first trimester. She does desire to be . She is taking vitamins. 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 Seasonal allergies PAST SURGICAL HISTORY Procedure Laterality Date PAST SURGICAL HISTORY OF wisdom teeth VAGINOSCOPY FAMILY HISTORY Problem Relation Age of Onset Narcolepsy Mother Hypertension Mother Thyroid Mother Depression Father Suicide / Suicidal Behaviors Father Alcohol/Drug Father No Known Problems Sister No Known Problems Sister Asthma Brother No Known Problems Maternal Grandmother No Known Problems Maternal Grandfather Stroke Paternal Grandmother Heart Paternal Grandfather Colon Cancer Paternal Grandfather Diabetes Paternal Grandfather Diabetes Paternal Uncle No Known Problems Daughter Social History Tobacco Use Smoking status: Former Current packs/day: 0.00 Types: Cigarettes Start date: 05/13/2008 Quit date: 2018 Years since quittin.9 Smokeless tobacco: Never Vaping Use Vaping status: Former Quit date: 03/16/2021 Substance Use Topics Alcohol use: Not Currently Drug use: No Current Outpatient Medications Medication Sig vit/iron fum/folic ac ( 1 + 1 ORAL) aspirin, enteric coated (ECOTRIN LOW STRENGTH) 81 mg EC tablet Take 1 tablet by mouth once daily. No current facility-administered medications for this visit. Allergies As of Date: 04/23/2024 (No Known Allergies) Fully Assessed 04/23/2024 R Expanded ROS: N/A Allergies and current medication updated:Yes SENSITIVE EXAM: The sensitive examination was discussed with the Patient or Patient's Authorized Pick Pulling Machine Tender. As applicable, any other physician, advance practice provider, medical student, or other health professional student that will be observing or involved in the sensitive examination for educational or training purposes was discussed with the Patient or Authorized Pick Pulling Machine Tender. The Patient or Authorized Pick Pulling Machine Tender has agreed to proceed with the sensitive examination. (Sensitive examination includes inspection and/or palpation of the breasts, pelvis, prostate and anorectal regions). EXAM: BP 100/62 Wt 118 lb (53.5kg) LMP 03/03/2024 GENERAL: pleasant, female in mild distress PELVIC: external genitalia normal, normal Bartholin's glands, urethra, [place]'s glands, no vulvar lesions, no cervical lesions, good vaginal support, normal appearing perineal body and perianal region, small amount of brown-tinged mucus discharge. Brief transvaginal ultrasound was done which shows some heterogeneous debris and an endometrial lining of approximately 8 mm. Appears there may be a collapsed sac. No discrete gestational sac, yolk sac or embryonic pole. BIMANUAL: uterus normal size, shape and consistency, no adnexal masses, and non-tender ASSESSMENT AND PLAN: Assessment AND Plan Incomplete spontaneous without complication Reviewed quantitative hCG results and ultrasound from today with patient. Appears she may have some retained products. We reviewed medical versus expectant versus surgical management options. At this point patient would like medical management options. We discussed outcomes after first trimester miscarriage. We discussed timing of next recommended she stay on her vitamin. We discussed health optimization. Reviewed with her this point would not recommend a workup for miscarriage. High (more content not included)... [facility] 04-23-2024 History of Present illness Narrative Lana Salguero is a 34 year old female who presents for problem visit for f/u bleeding in .. HPI: 34-year-old 3 para 1 female who presents for vaginal bleeding in . She has been followed during this . Her hormone level is rising a little slower than expected. She then began spotting about 7 days ago. For 3 days she had heavier bleeding a lot heavier than her normal menses for her but not a lot of pain. She denies any fevers or chills. She denies any chest pain shortness of breath lightheadedness or dizziness. Today she has just light bleeding again . She questions why she has having a miscarriage. She has a history of a vacuum-assisted vaginal delivery 2021 and a remote history of 1 miscarriage in the first trimester. She does desire to be . She is taking vitamins. 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 Seasonal allergies PAST SURGICAL HISTORY Procedure Laterality Date PAST SURGICAL HISTORY OF wisdom teeth VAGINOSCOPY FAMILY HISTORY Problem Relation Age of Onset Narcolepsy Mother Hypertension Mother Thyroid Mother Depression Father Suicide / Suicidal Behaviors Father Alcohol/Drug Father No Known Problems Sister No Known Problems Sister Asthma Brother No Known Problems Maternal Grandmother No Known Problems Maternal Grandfather Stroke Paternal Grandmother Heart Paternal Grandfather Colon Cancer Paternal Grandfather Diabetes Paternal Grandfather Diabetes Paternal Uncle No Known Problems Daughter Social History Tobacco Use Smoking status: Former Current packs/day: 0.00 Types: Cigarettes Start date: 05/13/2008 Quit date: 2018 Years since quittin.9 Smokeless tobacco: Never Vaping Use Vaping status: Former Quit date: 03/16/2021 Substance Use Topics Alcohol use: Not Currently Drug use: No Current Outpatient Medications Medication Sig vit/iron fum/folic ac ( 1 + 1 ORAL) aspirin, enteric coated (ECOTRIN LOW STRENGTH) 81 mg EC tablet Take 1 tablet by mouth once daily. No current facility-administered medications for this visit. Allergies As of Date: 04/23/2024 (No Known Allergies) Fully Assessed 04/23/2024 R Expanded ROS: N/A Allergies and current medication updated:Yes SENSITIVE EXAM: The sensitive examination was discussed with the Patient or Patient's Authorized Pick Pulling Machine Tender. As applicable, any other physician, advance practice provider, medical student, or other health professional student that will be observing or involved in the sensitive examination for educational or training purposes was discussed with the Patient or Authorized Pick Pulling Machine Tender. The Patient or Authorized Pick Pulling Machine Tender has agreed to proceed with the sensitive examination. (Sensitive examination includes inspection and/or palpation of the breasts, pelvis, prostate and anorectal regions). EXAM: BP 100/62 Wt 118 lb (53.5kg) LMP 03/03/2024 GENERAL: pleasant, female in mild distress PELVIC: external genitalia normal, normal Bartholin's glands, urethra, [place]'s glands, no vulvar lesions, no cervical lesions, good vaginal support, normal appearing perineal body and perianal region, small amount of brown-tinged mucus discharge. Brief transvaginal ultrasound was done which shows some heterogeneous debris and an endometrial lining of approximately 8 mm. Appears there may be a collapsed sac. No discrete gestational sac, yolk sac or embryonic pole. BIMANUAL: uterus normal size, shape and consistency, no adnexal masses, and non-tender ASSESSMENT AND PLAN: Assessment & Plan Incomplete spontaneous without complication Reviewed quantitative hCG results and ultrasound from today with patient. Appears she may have some retained products. We reviewed medical versus expectant versus surgical management options. At this point patient would like medical management options. We discussed outcomes after first trimester miscarriage. We discussed timing of next recommended she stay on her vitamin. We discussed health optimization. Reviewed with her this point would not recommend a workup for miscarriage. High chance of successful next attempt emphasized. Questions were answered to her satisfaction. Taking urine test with onset of next menses and if negative can proceed with attempting . If positive call office. If continues to bleed irregularly over the next 2 weeks, call for another follow-up. Patient is comfortable with this plan. Declines other interventions at this time. Bleeding precautions reviewed Paul Quezada MD Medical Decision Making: Problems: Moderate: New problem with uncertain prognosis Data: Unique test result(s) reviewed: 2 Risk: Low: Low risk from testing/treatment Medical Decision Making Level: 3 - Low documented in this encounter [facility] 04-17-2024 Telephone encounter Note Patient notified. Voiced understanding. Tanya Rosario RN [facility] 04-17-2024 Miscellaneous Notes Patient notified. Voiced understanding. Tanya Rosario RN Please notify patient possible septation noted in gestational sac. Sac empty. Ectopic unlikely, but uncertain on viability of . Will await HCG results. Please review bleeding and pain precautions and that I'm thinking of her. Luis Noel APRN.CNP documented in this encounter [facility] 04-17-2024 Telephone encounter Note Please notify patient possible septation noted in gestational sac. Sac empty. Ectopic unlikely, but uncertain on viability of . Will await HCG results. Please review bleeding and pain precautions and that I'm thinking of her. Luis Noel APRN.DAMARI [facility] 04-17-2024 Note HNO ID: [id number] Author: RACHEL BULLOCK MD Service: ? Author Type: Physician Type: Progress Notes Filed: 04/17/2024 11:52 Note Text: The patient presents for requested ultrasound. Full report available in the Imaging tab in [employer]. Rachel Bullock MD [facility] 04-17-2024 History of Present illness Narrative The patient presents for requested ultrasound. Full report available in the Imaging tab in [employer]. Rachel Bullock MD documented in this encounter [facility] 04-16-2024 Telephone encounter Note Called Pt and ultrasound scheduled for 04/17 at 8am. Lab appt following.Diane Mazariegos RN [facility] 04-16-2024 Miscellaneous Notes Called Pt and ultrasound scheduled for 04/17 at 8am. Lab appt following.Diane Mazariegos RN She has 04/23 ultrasound - please see if we can move it up Luis Noel APRN.CNP HCG ordered. Please assist her in scheduling ultrasound, first available. Luis Noel APRN.DAMARI HCG order pending to get done 04/18/24 as advised by . Please file and view Pt's CITYBIZLIST message. Diane Mazariegos RN Pt notified. Bleeding precautions and ectopic precautions reviewed. Pt advised our office will be in contact with her once HCG levels result. Leave phone note open for HCG results from 04/13 & 04/15 lab draw. Diane Mazariegos RN Left message for patient to call office. Diane Mazariegos RN HCG ordered. Please review pain/bleeding precautions. Luis Noel APRN.DAMARI 5w6d Pt calls stating yesterday she began with vaginal discharge which had green tint and then brown tint. Denies recent sexual intercourse/nothing in vagina past week. Denies vaginal bleeding/pain/vaginal itching/vaginal burning/dysuria. Advised Pt to call office if she began to bleed vaginally or had severe abdominal pain to call office. Pt also asking if HCG levels can be done. Last OV 04/06/24 with . Please advise. Diane Mazariegos RN documented in this encounter [facility] 04-16-2024 Telephone encounter Note She has 04/23 ultrasound - please see if we can move it up Luis Noel APRN.CNP [facility] 04-16-2024 Telephone encounter Note HCG ordered. Please assist her in scheduling ultrasound, first available. Luis Noel APRN.CNP [facility] 04-16-2024 Telephone encounter Note HCG order pending to get done 04/18/24 as advised by . Please file and view Pt's CITYBIZ[employer] message. Diane Mazariegos RN [facility] 04-13-2024 Telephone encounter Note Pt notified. Bleeding precautions and ectopic precautions reviewed. Pt advised our office will be in contact with her once HCG levels result. Leave phone note open for HCG results from 04/13 & 04/15 lab draw. Diane Mazariegos RN [facility] 04-13-2024 Telephone encounter Note Left message for patient to call office. Diane Mazariegos RN [facility] 04-13-2024 Telephone encounter Note HCG ordered. Please review pain/bleeding precautions. Luis Noel APRN.DAMARI [facility] 04-13-2024 Telephone encounter Note 5w6d Pt calls stating yesterday she began with vaginal discharge which had green tint and then brown tint. Denies recent sexual intercourse/nothing in vagina past week. Denies vaginal bleeding/pain/vaginal itching/vaginal burning/dysuria. Advised Pt to call office if she began to bleed vaginally or had severe abdominal pain to call office. Pt also asking if HCG levels can be done. Last OV 04/06/24 with EH. Please advise. Diane Mazariegos, RN [facility] 04-07-2024 Telephone encounter Note 1st risk assessment form submitted 04/07/24 Sia Tai RN [facility] 04-07-2024 Miscellaneous Notes 1st risk assessment form submitted 04/07/24 Sia Tai RN documented in this encounter [facility] 04-06-2024 Note Addended by: LUIS NOEL on: 04/06/2024 11:13 AM Modules accepted: Orders [facility] 04-06-2024 Miscellaneous Notes Addended by: LUIS NEOL on: 04/06/2024 11:13 AM Modules accepted: Orders documented in this encounter [facility] 04-06-2024 Instructions Luis Noel APRN.CNP - 04/06/2024 10:15 AM EST Images from the original note were not included. Please select the following link to access the [facility] Your Guide to a Healthy . [email or web address]/healthypregnancyguide Please select the following link to access the [facility] Your Guide to a Healthy . [email or web address].[email or web address]/healthypregnancyguide MORNING SICKNESS IN by Reyna Mccord M.D. for AfterYes As you may already know, morning sickness can often be more appropriately called evening sickness or koedn-gjubst-kq-the-day sickness. While there are the lambert few, most women (50-90%) experience some degree of nausea, some have vomiting, and a few develop a severe form of vomiting during called hyperemesis gravidarum. What causes the nausea and vomiting of ? We can't explain why some people feel fine and others are green for months. Even the same woman may feel vastly different in each . There is some relationship between nausea and the level of the hormone hCG. In twin pregnancies, and in other situations where the hCG is greater than expected, nausea and vomiting tend to be worse. In a destined for miscarriage, hCG levels tend to be low, and nausea is often less severe. This being said, a lack of nausea doesn't guarantee that the is destined for miscarriage. The fact that nausea and vomiting are often signs of a healthy can offer a silver lining in the dark cloud of miserable nausea. How long will the nausea last? Fortunately, for most women, nausea and vomiting are a first trimester event, peaking at week 9-10 and waning by week 14-16. When you are feeling bad the weeks can go by slowly but most moms do feel tremendously better by the middle of the . Whether morning sickness is a brief experience or lasts through most of the , there are treatments that can make the weeks or months more tolerable. What can you do about it? Diet: See what works for you. Try eating bland dry foods, and avoid fatty or spicy foods. It is okay to eat a less than perfectly balanced diet in the first trimester. Have your liquids separately from dry foods. Try sports drinks, water, clear juices, Ventura-aid, or non-caffeinated tea. Avoid carbonated beverages that fill up your stomach. Try eating lots of little meals. If you tend to feel sick when you first wake up, leave crackers next to the bed for a quick snack before rising. Keeping healthy snacks with you all day to nibble when you feel queasy can sometimes even prevent nausea from starting. vitamins and nausea: Pre- vitamins can sometimes worsen nausea in . While folate is necessary, especially early in the , it comes as a smaller pill that many people find more tolerable than the complete vitamin pill. Ask your practitioner if it is okay to temporarily replace vitamins and iron with just a folate pill if you find a significant worsening in the level of your nausea from the vitamins. Alternative therapies: Acupressure may be used to treat nausea in , and is not known to have any risks for the fetus. Wristbands (marketed for seasickness) that put pressure on an acupressure point at the wrist are often available at drugstores or travel stores. Thea root is used for nausea in many traditional cultures. Some women take fresh grated thea or thea tablets. It is possible that the pill form contains other ingredients or contaminants, so you may want to try fresh thea first. Medications: Emetrol is the only nausea medication approved for use in . It is available over the counter and is soothing to the stomach. A prescription medication called Bendectin was available in the -1979's and was shown to be safe in , but the company stopped marketing it in the [place] due to the costs of liability coverage. Bendectin contained 10 milligrams of vitamin B6 and 10 milligrams of Doxylamine. Two tablets were given at bedtime and a total of up to 4 tablets could be used in a 24-hour period. Interestingly, Unisom , which contains a higher dose (25 mg.) of the same medication, Doxylamine, is currently marketed as an jqrx-jxi-omrlnkx sleeping pill. Ask your practitioner if creating a vitamin B6/Doxylamine combination with klxl-std-txhsqnh medications would be safe for you. Prescription medications like Compazine and Phenergan can be used if the benefits outweigh possible risks, but these have not been clearly shown to be safe in . Zofran , an expensive anti-nausea medication often used to treat nausea from chemotherapy, can also be used. Can I throw up so much it harms the baby? The act of vomiting cannot hurt your fetus, which is protected inside the uterus. If you get dehydrated or develop a metabolic imbalance, this can be unhealthy. As long as you can keep down liquids, you and your baby will generally do all right. Eat when you feel able. If you are unable to keep anything down, or if you notice potential signs of dehydration such as lightheadedness, or concentrated and/or infrequent urination, call your practitioner. Some women need brief hospital admission for intravenous fluids and anti-nausea medications if their condition becomes severe. This severe form of nausea and vomiting is called Hyperemesis Gravidarum. As with many symptoms of , remind yourself that this, too, shall pass, and you'll have a wonderful baby to show for it! TREATMENT OPTIONS, SHORT VERSION: Frequent small meals Hydrate throughout day Sea-Bands wrist pressure point applicators Thea root (powdered, in capsules) 250mg four times a day Vitamin B6 25 mg tablet three times a day Also may be taken with half a tablet of Unisom three times a day (Doxylamine 12.5 mg) If severe (weight loss, dehydration), call us and come in for IV hydration and possible medication in the form of injections. Prescription medications such as Phenergan, Compazine, Reglan Psychotherapy Services at [facility] Call Behavioral Health Access Line at [phone] to schedule Individual psychotherapy In-person or virtual Wait time for first evaluation may be 12 or more weeks. Wait list spots may be available. Due to the high volume of patients this option is recommended if you are looking for short term acute symptom coping strategies. 2-669-7-MHTU7XRZO - [facility] Mental Health Hotline If you are in suicidal crisis, please call or text 8-336-337-TALK ( ) or visit the National Suicide Prevention Lifeline website. mchb.[facility] general hospitala.gov If you are in crisis, call 101 or go to your nearest Emergency Department Here are some links for wonderful Providers here in the community and surrounding areas. Do not hesitate to contact their offices, many are offering virtual visits during this time. Psychotherapy Services outside of [facility] Support International Online Provider Directory https://Big River.Solvesting/ - can assist in finding providers in your area that might be more extensive then the list below. [facility] - [place], [place] [address] [place] [address] [facility] [address] [place], [place] [id number] [facility] [address] [place], [place] [address] [facility] [address] [place] [address] Iram Cartwright MD [address] [place], [place] [address] [facility] [address] [facility], [address] [place] [address] [facility] [address] [place] [address] [facility] [place] / Jay [phone]/ [phone] Jamia Grady [address] [facility] [phone] Aves of Counseling and Mediation [place] / Kitty [phone] Behavioral health services of [facility] [address] [place] [address]/ colwich and superior [phone] Max Kaiser, VICKI, CLC [facility]ump and Beyond Family Therapy Workshops, telehealth and at home visits. [phone] Humanistic counseling center 20 locations [place], [place], [place], [place], [place], [place], [place], [facility], [place], [place], [place], [place], [place], [place], [facility], [place], [place] ,[facility], [place], [place],[facility], [facility], [place], [facility], [facility], [place] www.newport community hospitaler.co [phone] Psychotherapy resources outside of [facility] are listed below Metric Medical Devices Psychotherapy Web: https://www.WORKING OUT WORKS/ Support International Online Provider Directory https://Teliportme/ [facility] https://WaveMaker Labs/ Partners for Behavioral Health and Wellness Web: https://RxResults/ Center for Effective Living Web: https://www.effectiveOsurvliving.Solvesting/ LifeStance Web: https://Smart Energy.Solvesting/location/s rodriguez/[place]/ [facility] Web: https://www.[facility].or / [facility] Web: https://MedStatix, LLC.org/ Recovery Resources Mental health and substance abuse help Web: https://www.Privatext & RESOURCES Support International Direct peer support and connection to professional resources Non-Emergency Helpline Phone: / Text: [phone] Web: https://www..net/ Online Provider Directory: https://Teliportme/ Online Support Meetings: https://www..net/get-he lp/xus-iqtozs-iaytixd-meetings/ JOANNA Baby and Corporate Sales Trainer Services Web: https://24 Quan/ [employer] Expert information on medication use during and Text: [phone] Web: https://Drimmi/ NATIONAL REGISTRY FOR PSYCHIATRIC MEDICATIONS Currently studying the safety of antidepressants, ADHD medications and atypical antipsychotics taken during TO PARTICIPATE CALL TOLL-FREE: Web: https://womensmentalhealth.org/re search/pregnancyregistry/ Support Groups: [facility]- Follow on facebook Baby Bistro support group led by [facility] department Resilient Mamas - Support Group [facility].org The POEM support group [phone] Www.poemonline.org Follow on facebook - POPARKER hanson chapter Online support meetings PSI https://www..net/get-he lp/wkx-frazxz-qosjgsd-meetings/ [facility] mommy and me virtual support group 11:30-1pm Support for mothers and new babies and toddlers [place] childbirth education: Childbirth @cc.org or call [phone] CRISIS: CRISIS HOTLINE [phone], 911 or go to the nearest [facility] [phone] / [facility] [phone] https://www.carthage area hospitalrb.org Crisis text line text the word HOME to [phone] [facility] [address] de jesus [address] [facility] [address] www.Kapow Software Gill Velazquez clinical counseling [address] [facility] [address] [place] [address] www.Original [phone] Holding space psychotherapy Esperanza Bangurabunny DIRECTOR OF GLOBAL SALES SCENIC ARTIST-S [address] [facility] www.Wealink.com [phone]/ [place] [phone] They all offer virtual. All work with trauma Support groups Online support meetings PSI https://www..net/get-he lp/idz-ffhskr-qvjuxmm-meetings/ Here are the support groups they offer: Support of parents of 1 to 4 years old children POEM ( Outreach and Encouragement for Moms) offers free support for mothers experiencing depression, anxiety, and other mood and anxiety disorders. Masks are recommended but not required. No pre-registration required. Babies in arms welcome. meetings now take place on the and Saturday of each month Location: Carlos Enrique [facility] [address] [place] [address] Room 122 (library room) 7-8:00 p.m. When you enter the [facility] parking lot off of [address] the entrance door closest to our meeting room is on the front of the building toward the right. For those who are more comfortable with a virtual platform, POEM offers online support group options several days of the week. To register for an online group or to find out more about POEM, website at: https://mhaohio.org/get-help/mohansic state hospitalqrjb-sjmaix-thbvkw/poem-services/ offer a confidential helpline: private Facebook group is called DAX Iyer Here are the groups they offer: Traumatic childbirth resources: Http://pattch.org/ https://www.markOsurvjarocho SavvySource for Parents.Solvesting/ Name Location (s) Phone # (s) Services Website Holding Space Psychotherapy [address] [facility], [place], [place] - [phone]; [address] [facility] Lance [address] [facility] [phone] In-Person GROUPS INDIVIDUAL THERAPY MATERNAL- MENTAL HEALTH MEDICATION MANAGEMENT PLAY AND ART THERAPY TELETHERAPY https://www.WORKING OUT WORKS/s erbeau/ Sathya of [facility]? [address] [place], [place] [address] ? [place] [address] [facility], [address] [place], [place] [address] ? BRANCH [address] [place] [phone]? Grief Support Groups Individual Grief Counseling Spiritual Care Memorial Events https://hanson.[facility].org/grief-services [facility] [address] [place], [place] [address]; ; Email: [email or web address] Women's Mental Health; Couples Counseling; Trauma (EMDR); Stress Management; Mood and Anxiety Related Disorders- and much more https://www.Enviance/ LifeStance Numerous as they have contract providers: access website to find specific providers near you Counseling including CBT and EMDR as well as many more modalities; Medication Management; Telehealth and In-Person https://Sustainable Marine Energy/ Gymbox for Behavioral Health and Wellness [address] [place], [place] [address]; [phone] Personal, Family and Group Therapy; Psychological Testing and Diagnosis; Medication Management; Life and Career Coaching; Psychoanalysis; Literacy Testing; Yoga and Meditation https://AIRTAME.Solvesting/ Fit Mind [place] [address] [facility] [address], [place] [address] [address] ; [address] [place] [address], [address] [place] [address]; Office # for both sites: Individual and Couples Counseling https://www.Huoshi.Solvesting/ paymentinsurance.html OCD & Anxiety [facility] [address] [facility], [address], [place] [address]; Specialize in Cognitive-Behavioral Therapy (CBT) for the treatment of anxiety disorders across the lifespan. TELEHEALTH ONLY. https://ocdandanxietycenterofcFuzzv Relavance Software/faqs [facility] [address] [place], [address] [place] [address] [address] [facility] [place], [address] [place] [address] [facility] [place] [address] [place] [address] [place], [address], [address] [place] [address] [facility] [place], [address] [place] [address] [place], [place], [id number] Transportation Services To minimize patient barriers, [facility] provides transportation services to patients who qualify. If you are unable to get to your appointment at any of our facilities, please let us know. Need help now? Stop by one of our walk-in clinics to establish behavioral health care. Counseling Indvidual, Group, Couples and Family Counseling and EMDR. Medication Management Case Management benefits applications housing assistance Substance abuse treatment Medication assisted treatment https://www.[facility].or g/mental-health/ [facility] OFFICE AT [facility] [address] [place] [address] [facility] OFFICE [address] [place] [address] [facility] OFFICE [address] [place], [place] [address] [place] OFFICE (at [facility]) [address] [place] [address] [facility] S[facility]E EXCHANGE PROGRAM & HIV SCREENING [address] [place] [address] [facility] EXCHANGE PROGRAM [address] [place] [address] Behavioral Health Urgent Care: [facility] Counseling Indvidual and Group Medication Management Case Management benefits applications housing assistance Substance abuse treatment Medication assisted treatment Employment Services/ Job Training https://Fast Society[facility].org/ Recovery Resources [address] [place], [place] [address]: P: [phone] [address] [facility], [address], [place], [place] [address] P: [phone] Our services include: Addiction Mental Health Treatment Assessment Psychiatry Medical Care Employment Housing Drug and Alcohol Prevention HIV/AIDS Prevention https://www.recres.org/ [facility] [place] [address] [place] [address] [place] [address] [place], [place] [address] [place] [address] [place] [address] [place] [address] [facility] [address] [place] [address] [place] [address] [address] [address] TMS Therapy/ Counseling Psychocological Testing for ADHD Medication Management In-Person/ Telemedicine https://www.BinWise/aurelio ents-depression Memory & Psychological services [address], [place] [address] Neuropsychological Testing For ADHD https://www.memoryandpsych.com/ [facility] - Main Office [facility] [place] [address] [address] [address] Providing kcsa-jg-vgis and telehealth services. Adult Case Management Community Education and Prevention Employment Outpatient Treatment - Counseling & Psychotherapy Psychiatric Services http://www.ccwhc.org/ [facility] [place] [address] [place] [address] [facility] [address] [place] [address] Virtual Appointments! Now offering safe and convenient virtual client appointments to anyone in [place]! Individual Therapy Couples/Relationship Therapy Trauma/EMDR Therapy Art Therapy Play Therapy Ethnic Origins Teacher Support: Parenting Skills, Parent Child Interaction Therapy, Parent Interaction Therapy Meditation Dietitian/Color Corrector Services Group Therapy Yoga https://www.Scalix. edson/ Lisa West [phone] Private Practice: Telehealth Only Specializes in EMDR for Trauma None documented in this encounter [facility] 04-06-2024 Note HNO ID: [id number] Author: LUIS NOEL APRN.CNP Service: ? Author Type: Nurse Practitioner Type: Progress Notes Filed: 04/06/2024 11:13 Note Text: INITIAL OB ASSESSMENT HPI: Lana is a 34 year old White Female here to establish Obstetrical Care. Patient's last menstrual period was 03/03/2024 (exact date). from OB Dating Form. was planned Complaints: No OB History T1 L1 SAB1 IAB0 Ectopic0 Multiple0 Live Births1 # 1 - Date: 2010, Sex: None, Weight: None, GA: 7w0d, Type: None, Apgar1: None, Apgar5: None, Living: None, Comments: No DANDC # 2 - Date: 01/03/22, Sex: Female, Weight: 2.325 kg (5 lb 2 oz), GA: 39w0d, Type: Vaginal, Spontaneous, Apgar1: 9, Apgar5: 9, Living: Living, Comments: induction for IUGR, vacuum for maternal exhaustion - pushed x4 hours, EBL 300mL, 2nd degree perineal laceration, placenta with accessory lobe, marginal cord insertion # 3 - Date: None, Sex: None, Weight: None, GA: None, Type: None, Apgar1: None, Apgar5: None, Living: None, Comments: None Previous history: Prior : No History of 4th degree laceration: No History of shoulder dystocia: No History of Hypertensive disorders including pre-eclampsia or gestational hypertension: No History of gestational diabetes: No Patient's Risk Screening for delivery: Have you had a prior felipe between 20w and 36w6d? No How many pregnancies have you had before? 2 Did you have a previous baby with a GBS Infection? No Please select all that apply for any prior : Baby small for gestational age MEDICAL/PSYCHOSOCIAL HISTORY: Severe bleeding with delivery: No Thyroid Disease: No GHTN: No Pre eclampsia: No Diabetes: No ABO/RH(D) Date Value Ref Range Status 03/22/2014 O NEG Final No weight on file for this encounter. Last Pap: 02/03/2024 History of abnormal pap: ASCUS 2019, LSIL 2017 Prior treatment for cervical dysplasia: none. Last HPV: 02/03/2024 History of STDs: HPV Partner History of STDs: None Did you have a partner with Herpes? No Tobacco use: No E-Cigarette/Vaping Use: No Caffeine use: Yes 1 cup of coffee a day Drug use: No Alcohol use: No Multivitamin with Folic acid: Yes Would refuse blood transfusion if medically necessary: No Social Needs: How often does this describe you? I don't have enough money to pay my bills: Never Within the past 12 months, have you worried that your food would run out before you had money to buy more? Never In the past 12 months, has lack of reliable transportation kept you from going to medical appointments or work, or from getting things needed for daily living? Never In the past 12 months, have you had any concerns about having a place to live, or about the condition or quality of your housing? Never Would you like more information on any of the following (please check all that apply)? Not interested Social History: Do you have any history of depression, anxiety, PTSD, or other mood problems? Yes Do you have a history of abuse or trauma that may impact your experience? No Are you currently employed? Yes Depression/Anxiety Screening: denies symptoms of depression. OB Depression and Anxiety Screening- This Encounter (since 04/05/2024) Over the past 2 weeks have you felt down, depressed, or hopeless? Negative Over the past two weeks, have you felt little interest or pleasure in doing things?? Negative Feeling nervous, anxious or on edge 0-Not at all Not being able to stop or control worrying 0-Not al all Anxiety Pre-Screening Total (If >/= 3 additional questions will be reviewed) 0 Genetic Screening: Partner present: No Patient verbalized knowledge of partner family health history: No Do you or your partner have any personal or family history of defects not previously discussed: No Do you have history of a complicated by anomaly, genetic condition, or demise: No Preeclampsia Risk Screening: Screening for prevention of preeclampsia: High risk factors: None Moderate risk ractors: None OB Risk Screening: Completed, no positive findings documented. Marital Status:Single Partner: Name: Femi Martin Age: 29 Occupation: test and turn up technician Gender: Male PAST MEDICAL HISTORY Diagnosis Date Abnormal Pap smear of cervix 2017 and 2019 HPV 2021, COVID 05/06/2021 Pap smear abnormality of cervix/human papillomavirus (HPV) positive Seasonal allergies PAST SURGICAL HISTORY Procedure Laterality Date PAST SURGICAL HISTORY OF wisdom teeth VAGINOSCOPY Current Outpatient Medications Medication Sig Dispense Refill vit/iron fum/folic ac ( 1 + 1 ORAL) levocetirizine 5 mg tablet take 1 tablet by mouth once daily every evening (Patient not taking: Reported on 04/06/2024) azelastine 0.1% nasal spray instill 2 sprays into each nostril twice a day ( (more content not included)... [facility] 04-06-2024 History of Present illness Narrative INITIAL OB ASSESSMENT HPI: Lana is a 34 year old White Female here to establish Obstetrical Care. Patient's last menstrual period was 03/03/2024 (exact date). from OB Dating Form. was planned Complaints: No OB History T1 L1 SAB1 IAB0 Ectopic0 Multiple0 Live Births1 # 1 - Date: 2011, Sex: None, Weight: None, GA: 7w0d, Type: None, Apgar1: None, Apgar5: None, Living: None, Comments: No D&C # 2 - Date: 01/03/22, Sex: Female, Weight: 2.325 kg (5 lb 2 oz), GA: 39w0d, Type: Vaginal, Spontaneous, Apgar1: 9, Apgar5: 9, Living: Living, Comments: induction for IUGR, vacuum for maternal exhaustion - pushed x4 hours, EBL 300mL, 2nd degree perineal laceration, placenta with accessory lobe, marginal cord insertion # 3 - Date: None, Sex: None, Weight: None, GA: None, Type: None, Apgar1: None, Apgar5: None, Living: None, Comments: None Previous history: Prior : No History of 4th degree laceration: No History of shoulder dystocia: No History of Hypertensive disorders including pre-eclampsia or gestational hypertension: No History of gestational diabetes: No Patient's Risk Screening for delivery: Have you had a prior felipe between 20w and 36w6d? No How many pregnancies have you had before? 2 Did you have a previous baby with a GBS Infection? No Please select all that apply for any prior : Baby small for gestational age MEDICAL/PSYCHOSOCIAL HISTORY: Severe bleeding with delivery: No Thyroid Disease: No GHTN: No Pre eclampsia: No Diabetes: No ABO/RH(D) Date Value Ref Range Status 03/22/2014 O NEG Final No weight on file for this encounter. Last Pap: 02/03/2024 History of abnormal pap: ASCUS 2019, LSIL 2017 Prior treatment for cervical dysplasia: none. Last HPV: 02/03/2024 History of STDs: HPV Partner History of STDs: None Did you have a partner with Herpes? No Tobacco use: No E-Cigarette/Vaping Use: No Caffeine use: Yes 1 cup of coffee a day Drug use: No Alcohol use: No Multivitamin with Folic acid: Yes Would refuse blood transfusion if medically necessary: No Social Needs: How often does this describe you? I don't have enough money to pay my bills: Never Within the past 12 months, have you worried that your food would run out before you had money to buy more? Never In the past 12 months, has lack of reliable transportation kept you from going to medical appointments or work, or from getting things needed for daily living? Never In the past 12 months, have you had any concerns about having a place to live, or about the condition or quality of your housing? Never Would you like more information on any of the following (please check all that apply)? Not interested Social History: Do you have any history of depression, anxiety, PTSD, or other mood problems? Yes Do you have a history of abuse or trauma that may impact your experience? No Are you currently employed? Yes Depression/Anxiety Screening: denies symptoms of depression. OB Depression and Anxiety Screening- This Encounter (since 04/05/2024) Over the past 2 weeks have you felt down, depressed, or hopeless? Negative Over the past two weeks, have you felt little interest or pleasure in doing things? Negative Feeling nervous, anxious or on edge 0-Not at all Not being able to stop or control worrying 0-Not al all Anxiety Pre-Screening Total (If >/= 3 additional questions will be reviewed) 0 Genetic Screening: Partner present: No Patient verbalized knowledge of partner family health history: No Do you or your partner have any personal or family history of defects not previously discussed: No Do you have history of a complicated by anomaly, genetic condition, or demise: No Preeclampsia Risk Screening: Screening for prevention of preeclampsia: High risk factors: None Moderate risk ractors: None OB Risk Screening: Completed, no positive findings documented. Marital Status:Single Partner: Name: Femi Mratin Age: 29 Occupation: test and turn up technician Gender: Male PAST MEDICAL HISTORY Diagnosis Date Abnormal Pap smear of cervix 2017 and 2019 HPV 2021, COVID 05/06/2021 Pap smear abnormality of cervix/human papillomavirus (HPV) positive Seasonal allergies PAST SURGICAL HISTORY Procedure Laterality Date PAST SURGICAL HISTORY OF wisdom teeth VAGINOSCOPY Current Outpatient Medications Medication Sig Dispense Refill vit/iron fum/folic ac ( 1 + 1 ORAL) levocetirizine 5 mg tablet take 1 tablet by mouth once daily every evening (Patient not taking: Reported on 04/06/2024) azelastine 0.1% nasal spray instill 2 sprays into each nostril twice a day (Patient not taking: Reported on 04/06/2024) ZADITOR 0.025 % (0.035 %) ophthalmic solution instill 1 drop INTO AFFECTED EYE(S) twice a day if needed for allergies (Patient not taking: Reported on 04/06/2024) No current facility-administered medications for this visit. Allergies As of Date: 04/06/2024 (No Known Allergies) Fully Assessed 01/27/2024 Does patient have penicillin allergy: No REVIEW OF SYSTEMS: GENERAL: Negative for: Fever or Chills HEENT: Negative for: Headache, Impaired Vision, Ringing in Ears, Nosebleeds NECK: Negative for: Swelling, Pain, Stiffness RESPIRATORY: Negative for: Cough, Shortness of breath, Wheezing GASTROINTESTINAL: Negative for: Heartburn, Constipation, Diarrhea, Blood in stool + nausea MUSCULOSKELETAL: Negative for: Muscle or joint pain, stiffness, Joint swelling NEUROLOGIC/PSYCHIATRIC: Negative for: Weakness, Paralysis, Numbness, Tingling, Tremor, Anxiety, Depression, Memory loss SKIN: Negative for: Rash, Itching GENITOURINARY: Negative for: vaginal itching, vaginal discharge, hematuria or dysuria SENSITIVE EXAM: The sensitive examination was discussed with the Patient or Patient's Authorized Pick Pulling Machine Tender. As applicable, any other physician, advance practice provider, medical student, or other health professional student that will be observing or involved in the sensitive examination for educational or training purposes was discussed with the Patient or Authorized Pick Pulling Machine Tender. The Patient or Authorized Pick Pulling Machine Tender has agreed to proceed with the sensitive examination. (Sensitive examination includes inspection and/or palpation of the breasts, pelvis, prostate and anorectal regions). PHYSICAL EXAM: BP 110/60 Ht 5' 3.386 (1.61m) Wt 121 lb 6.4 oz (55.1kg) LMP 03/03/2024 BMI 21.24 kg/(m^2). GENERAL: pleasant in no apparent distress DERMATOLOGY: Normal, without lesions, non-icteric, and non-hirsute NECK: Supple, full range of motion, no adenopathy, and thyroid normal CHEST: Normal inspiratory effort BREAST :deferred, done with annual Phylicia, no changes ABDOMEN: soft, non-tender, and no masses NEURO: alert and oriented x3,exam grossly non-focal PELVIS: External genitalia normal without lesions. Perineal body intact. No cervical lesions. + 2, 3 mm cheema lesions to inferior vulva/perineum, 1 condyloma acuminata to right inferior vulva/perineum Cervix closed. Uterus <8 week size. No adnexal masses or tenderness. Clinical Pelvimetry: Pelvimetry clinically assessed as adequate Limited OB ultrasound exam: not performed ASSESSMENT: 34 year old at 4w6d wks gestational age PLAN: 1) Patient oriented to practice. Patient given new OB orientation folder. Discussed nutrition, folic acid supplementation, dietary guidelines, exercise, smoking, alcohol, caffeine, and drug use. Discussed gestational weight gain guidelines. Discussed routine OB labs including STD/HIV. Discussed how to access Your guide to a health and the Information Resource Consultant. Discussed hemoglobin electrophoresis. Patient: Declines Reviewed midwifery and transplant surgeon services that are available. 2) Screening: Hemoglobin A1C: ordered Baby Aspirin: The patient has been counseled about the potential benefits of low dose aspirin in and our recommendation that this be offered to all patients, regardless of whether they meet the high risk criteria specified above. She Accepts Aneuploidy Screening: Discussed aneuploidy screening, nuchal translucency/first trimester early anatomy ultrasound and NIPT. The risks/benefits and limitations of NIPT/aneuploidy screening were reviewed including the potential for false negative and false positive results. The availability of genetic counseling was reviewed. Information on aneuploidy screening was provided. The patient chooses to proceed with First trimester early anatomy ultrasound (12-13w6d) and NIPT (10 weeks) Myriad Carrier Screening: Discussed myriad carrier screening. We discussed the availability of professional-society guided carrier screening and reviewed the conditions screened and limitations of screening. The availability of genetic counseling was reviewed. Information on carrier screening was provided. The patient Accepts 3) Patient offered option of Virtual Visits. Patient unsure. May consider in future. ACTIVE PROBLEM LIST Encounter for Supervision of High Risk in First Trimester, Antepartum - 04/06/2024 Comment: Care Checklist Vaccines: [] Flu vaccine [] declined [] RSV vaccine 32 0/7 - 36 6/ (Jan - Jun) [] declined [] COVID vaccine [] declined [] TDaP 27-36 [] declined First trimester: [] Dating US [x] 1st tri labs [x] Pap smear UTD [x] Carrier screening [] declined [x] NIPT screening [] declined [] First trimester anatomy scan [] declined [x] universal ASA ordered (start 12w-16w) [] declined [] M Power Consult [] not indicated [] declined Second trimester: [] AFP [] declined [] Anatomy scan [] Mode of Delivery - [] Feeding - [] Pump ordered [] Diabetes screen [] CBC, RPR Third trimester (28-30 weeks): [] Consent [] Contraception - [] Cosmetology Professor Third trimester (36-40 weeks): [] GBS [] Presentation - [] Scheduled [] yes - Hibiclens, pre-op instructions, CBC, T&S ordered [] no [] H&P With Uncertain Dates in First Trimester - 04/06/2024 Comment: April 06, 2024 Presents for new OB visit at 4w6d. Will plan for dating ultrasound in 2 weeks. Luis Noel APRN.CASING WRINGER OPERATOR History of Intrauterine Growth Restriction in Prior , Currently - 04/06/2024 Comment: Plan for growth every 4 weeks at 32 weeks. Luis Noel APRN.CASING WRINGER OPERATOR History of Depression - 04/06/2024 Comment: April 06, 2024 Occurred around 6-7 months PP. Coping well at this time. Declines counseling. Mental health resources provided. To update throughout . Luis Noel APRN.CNP History of Placental Abnormality - 04/06/2024 Comment: April 06, 2024 Accessory lobe and marginal cord insertion. Luis Noel APRN.CASING WRINGER OPERATOR Rh Negative State in Antepartum Period - 04/06/2024 Comment: Plan for Rhogam at 28 week and . Luis Noel APRN.CNP History of Environmental Allergies - 04/06/2024 Comment: April 06, 2024 Sees family literacy coordinator. Reviewed medications, r/b. Limited data. Follow up with family literacy coordinator and notify of Luis Noel APRN.CASING WRINGER OPERATOR Nausea and Vomiting During - 04/06/2024 Comment: 04/06/24 Vitamin B6 and Unisom doses reviewed. To notify if prescription is needed. Luis Noel APRN.CNP Cervical High Risk Hpv (Human Papillomavirus) Test Positive - 12/20/2021 Comment: 05/2021 neg pap, +HRHPV (non 16/18 type) results scanned in. colp neg. no biopsies. Paul Quezada MD Vulvar Lesion - 04/06/2024 Comment: April 06, 2024 2, 3 mm cheema lesions to inferior vulva/perineum, 1 condyloma acuminata to right inferior vulva/perineum Recommend biopsy, hx of HPV Luis Neol APRN.CASING WRINGER OPERATOR Follow up in 2 weeks or sooner prn. Plan for dating ultrasound in 2 weeks. Luis Noel APRN.CASING WRINGER OPERATOR documented in this encounter [facility] 04-02-2024 Telephone encounter Note Patient called back and is scheduled for PNOB phone call 04/06 at 8:30am prior to her visit. Evelin Garnica RN [facility] 04-02-2024 Miscellaneous Notes Patient called back and is scheduled for PNOB phone call 04/06 at 8:30am prior to her visit. Evelin Garnica RN Left message for patient to return phone call to complete nurse intake questions for her upcoming appointment. Patient has an appointment with Luis Noel for NOB appointment. I will be in on Saturday if patient is available or you can transfer to [facility]. documented in this encounter [facility] 04-02-2024 Telephone encounter Note Left message for patient to return phone call to complete nurse intake questions for her upcoming appointment. Patient has an appointment with Luis Noel for NOB appointment. I will be in on Saturday if patient is available or you can transfer to [facility]. [facility] 01-27-2024 Luis Moser, [facility] - 01/27/2024 2:55 PM EDT A 3-dose schedule is recommended for people who get the first dose on or after their 15th birthday, and for people with certain immunocompromising conditions. In a 3-dose series, the second dose should be given 1-2 months after the first dose, and the third dose should be given 6 months after the first dose (0, 1-2, 6-month schedule). The minimum intervals are 4 weeks between the first and second dose, 12 weeks between the second and third doses, and 5 months between the first and third doses. If a vaccine dose is administered after a shorter interval, it should be re-administered after another minimum interval has elapsed since the most recent dose. If the vaccination schedule is interrupted, vaccine doses do not need to be repeated (no maximum interval). Curable cristopher for pelvic pain -can help with breathing and relaxation Kiana cristopher -Sexual health, self stimulation, orgasmic dysfunction, couples tips for foreplay -This will be very helpful with learning your body. This is another site for self stimulation and education [email or web address] Pelvic Floor Physical therapy: This really can be beneficial for you and would recommend. Books: Come As You Are: Revised and Updated: The Surprising New Science That Will Transform Your Sex Life Written by Luis Luther Ph.D. START TALKING: INTIMACY Written by Minerva Ramirez and Bhavik Lopez YOU ARE NOT BROKEN: STOP SHOULD-ING ALL OVER YOUR SEX LIFE Written by LEATHA Omalley MD WHEN SEX ISN'T GOOD - STORIES & SOLUTIONS OF WOMEN WITH SEXUAL DYSFUNCTION Written by Karen Mireles Ed.D. & Winnie Davalos Cooker Process Cheese, Adrian Rosales M.D. HEAL PELVIC PAIN: THE PROVEN STRETCHING, STRENGTHENING, AND NUTRITION PROGRAM FOR RELIEVING PAIN, INCONTINENCE,& I.B.S, AND OTHER SYMPTOMS WITHOUT SURGERY Written by Daisy Dumont THE SCIENCE OF ORGASM Written by Moy Wayne, Alireza Weaver, and Bridgette Almendarez When Sex Isn't Good - Stories & Solutions of Women With Sexual Dysfunction RECLAIMING DESIRE: 4 KEYS FOR FINDING YOUR LOST LIBIDO Written by Benita Goyal and Mata Rosales WHY WOMEN HAVE SEX: UNDERSTANDING SEXUAL MOTIVATIONS FROM ADVENTURE TO REVENGE (AND EVERYTHING IN BETWEEN) Written by Alejandrina Jacobo, PhD and Contreras Sheldon, PhD documented in this encounter [facility] 01-27-2024 History of Present illness Narrative Unemployment Benefits Claims Taker offered: Patient declinesYesica Ramon is a 34 year old who presents for an annual gynecologic exam with complaints, decreased libido . Planning for conception. Menses: cycles every 28 days and 4 days of flow. Contraception: none HPV vaccine: No Last Pap: 08/04/2019 abnormal, ASCUS HPV: 08/06/2019 negative History of abnormal pap: Yes, 2018 LSIL, 2020 ASCUS Last mammogram: never Sexually active: Yes History of STDS: HPV Patient concerns for STD exposure: No. Pain with intercourse: No Postcoital bleeding: No Exercise: walking OB History T1 L1 SAB1 IAB0 Ectopic0 Multiple0 Live Births1 [place] [place] [place] History LMP: 01/07/2024 (Approximate), Having periods Age at Menarche: Age at First : Age at Menopause: [employer] [employer] [place] History Comments: Sexual Activity: Yes; Male Contraception: None PAST MEDICAL HISTORY Diagnosis Date Abnormal Pap smear of cervix 2017 and 2019 HPV 2021, COVID 05/06/2021 Pap smear abnormality of cervix/human papillomavirus (HPV) positive Seasonal allergies PAST SURGICAL HISTORY Procedure Laterality Date PAST SURGICAL HISTORY OF wisdom teeth VAGINOSCOPY FAMILY HISTORY Problem Relation Age of Onset Narcolepsy Mother Hypertension Mother Depression Father Suicide / Suicidal Behaviors Father Alcohol/Drug Father No Known Problems Sister No Known Problems Sister Asthma Brother No Known Problems Maternal Grandmother No Known Problems Maternal Grandfather Stroke Paternal Grandmother Heart Paternal Grandfather Diabetes Paternal Uncle SOCIAL HISTORY Social History Tobacco Use Smoking status: Former Current packs/day: 0.00 Types: Cigarettes Start date: 2008 Quit date: 2018 Years since quittin.7 Smokeless tobacco: Never Vaping Use Vaping status: Former Quit date: 03/16/2021 Substance Use Topics Alcohol use: Not Currently Drug use: No REVIEW OF SYSTEMS Abdomen: No abdominal pain, nausea, vomiting, diarrhea, or constipation. No bloating, early satiety, indigestion, or increased flatulence. Bladder: No dysuria, gross hematuria, urinary frequency, urinary urgency, or incontinence. Breast: No breast lumps, nipple d/c, overlying skin changes, redness or skin retraction. Allergies and current medication updated:Yes SENSITIVE EXAM: The sensitive examination was discussed with the Patient or Patient's Authorized Pick Pulling Machine Tender. As applicable, any other physician, advance practice provider, medical student, or other health professional student that will be observing or involved in the sensitive examination for educational or training purposes was discussed with the Patient or Authorized Pick Pulling Machine Tender. The Patient or Authorized Pick Pulling Machine Tender has agreed to proceed with the sensitive examination. (Sensitive examination includes inspection and/or palpation of the breasts, pelvis, prostate and anorectal regions). EXAM: BP 102/64 Ht 5' 3.25 (1.61m) Wt 117 lb (53.1kg) LMP 01/07/2024 BMI 20.55 kg/(m^2). GENERAL: pleasant, female in no apparent distress HEENT: Normocephalic, atraumatic, mucus membranes moist, and no lesions NECK: Supple, full range of motion, no adenopathy, and thyroid normal DERMATOLOGY: Normal, without lesions, non-icteric, and non-hirsute BREAST: soft, non-tender, symmetric, no dominant mass, normal nipple-areolar complex, no lymphadenopathy, and no nipple discharge CHEST: Normal inspiratory effort ABDOMEN: soft, non-tender, and no masses PELVIC: external genitalia normal, normal Bartholin's glands, urethra, [place]'s glands, no vulvar lesions, no cervical lesions, good vaginal support, physiologic discharge present, normal appearing perineal body and perianal region + hyperpigmentation to bilateral inferior labia majora BIMANUAL: uterus normal size, shape and consistency, no adnexal masses, and non-tender RECTOVAGINAL: deferred. NEURO: alert and oriented x3,exam grossly non-focal EXTREMITIES: normal ASSESSMENT/PLAN: 1) Health maintenance: Pap done with HPV. Nutrition, exercise and routine health maintenance exams reviewed. HPV vaccine: interested, literature given 2) Contraception: none. 3) STD screening: Declined STD check. 4) Follow up one year or sooner as needed Decreased libido - ICD9: 799.81, ICD10: R68.82 - Sexual health resources provided via patient instructions - Discussed increased communication with partner - Denies symptoms of depression and anxiety currently - Consider seeing sex therapist - THYROID STIMULATING HORMONE - T4 FREE/FREE THYROXINE - HEMOGLOBIN A1C - VITAMIN D 25 HYDROXY Recommend starting PNV. Discussed home ovulation test kits. To notify if not within 1 year of trying. Luis Noel APRN.DAMARI documented in this encounter [facility] 05-22-2022 Miscellaneous Notes Call to pt. Identified by name/. Pt had not yet read message, but has been using Estrogen cream daily since it was initially given by regular OB, so approximately 2 months. She notes soften and improvement in her perineal tissue on the Rt side, but left side remains harder and more painful. She has not yet used the Emla cream. She does not have a bathtub, but will use the shower head on a gentle setting to perform a modified sitz bath. Is interested in a visit in [place]. Routing to [place] team for review. Will send MC with possible dates. Lora Pinto RN documented in this encounter [facility] 05-10-2022 Note HNO ID: [id number] Author: Ant Stewart APRN.CASING WRINGER OPERATOR Service: ? Author Type: Nurse Practitioner Type: Progress Notes Filed: 05/11/2022 8:01 AM Note Text: CARE CLINIC INITIAL CONSULT NAME: Lana Salguero CHIEF COMPLAINT: Lana Salguero is a 32 year old White Not female who is s/p Vacuum-assisted vaginal delivery who is here for a consultation requested by Dr. Paul Quezada for an opinion regarding 2nd degree perineal lac, granulation tissue and perineal pain. HISTORY OF PRESENT ILLNESS 18 weeks . VAVD. 2nd degree lac. Resection of granulation tissue by Dr. Quezada on 04/10/22. States she is not having pain, it is more of a discomfort. She is avoiding sex due to discomfort. Has been applying estrogen cream regularly with no change. Obstetric History: Date of delivery: 01/03/2022 Most recent delivery:Vacuum-assisted vaginal delivery Weight of the baby: 5lbs 2oz Laceration or episiotomy: [address] [place] [address] Hospital: [facility] How long did you push?: 3 hours Did you perform regular perineal massage in the third trimester of your ?: No Previous deliveries: No # 1 - Date: 2011, Sex: None, Weight: None, GA: 7w0d, Delivery: None, Apgar1: None, Apgar5: None, Living: None, Comments: No [facility] # 2 - Date: 01/03/22, Sex: Female, Weight: 2.325 kg (5 lb 2 oz), GA: 39w0d, Delivery: Vaginal, Vacuum (Extractor), Apgar1: 9, Apgar5: 9, Living: Living, Comments: induction for IUGR, vacuum for maternal exhaustion - pushed x4 hours, EBL 300mL, 2nd degree perineal laceration, placenta with accessory lobe, marginal cord insertion Is there anything else we should know about your delivery?: No How are you feeding your baby: . Are you having any problems? No Have you had pain since your delivery? Yes. Has the pain resolved? No. There is still pain with: no pain, just discomfort. Are you taking anything for the pain? No Are you soaking your bottom (sitz bath)? No Are you taking anything to soften your stools? No Have your menstrual periods started? No LMP: Patient's last menstrual period was 03/27/2021 (approximate). Are you doing/using anything to prevent ? No-Abstaining Have you resumed intercourse since your delivery? No- Abstaining Did you have any pain with intercourse prior to your ? No [place]d Scale Score: 3 Have you ever been diagnosed with depression or anxiety? No Urinary Symptoms: Are you leaking urine? No Did you leak urine during your ? No Did you leak urine before your ? No MADDIE-6 Do you experience, and if so, how much are you bothered by frequent urination: 0- Not at all Do you experience, and if so, how much are you bothered by urine leakage related to a feeling of urgency? 0- Not at all Do you experience, and if so, how much are you bothered by urine leakage related to physical activity, coughing or sneezing? 0- Not at all Do you experience, and if so, how much are you bothered by small amounts of urine leakage (drops)? 0- Not at all Do you experience, and if so, how much are you bothered by difficulty emptying your bladder? 0- Not at all Do you experience, and if so, how much are you bothered by pain or discomfort in the lower abdominal or genital area? 1- Slightly MADDIE-6 Score: 1 Pain: Tasneem Pain Questionnaire- Short Form Overall Pain Index (VAS): 0 Persistent Pain Index (PPI): 1- Mild Did you have any vulvar or vaginal pain prior to your ? No Defecatory Symptoms: Are you leaking stool? No Did you leak stool during your ? No Did you leak stool before your ? No Are you leaking flatus (gas)? Yes Did you leak gas during your ? No Did you leak gas before your ? No [place]lette Stool Chart stool type in last 7 days: Type 4: Like a sausage or snake, smooth or soft Fecal Incontinence Severity Score: FISI Gas: (12) 2 or more times/day Mucus: (0) Never Liquid stool: (0) Never Solid stool: (16) Once/day FISI Score: 28 Do you leak stool while trying to get to the toilet? No Do you leak stool when you have no sensation that you need to defecate? No Do you leak stool only after having a bowel movement? No Do you wear a pad because of stool leakage? No Do you have fecal urgency? No Health History: PAST MEDICAL HISTORY Diagnosis Date Abnormal Pap smear of cervix 2017 and 2019 HPV 2021, COVID 05/06/2021 Pap smear abnormality of cervix/human papillomavirus (HPV) positive Seasonal allergies PAST SURGICAL HISTORY Procedure Laterality Date PAST SURGICAL HISTORY OF wisdom teeth VAGINOSCOPY FAMILY HISTORY Problem Relation Age of Onset Narcolepsy Mother Hypertension Mother Depression Father Suicide / Suicidal Behaviors Father Alcohol/Drug Father No Known Problems Sister No Known Problems Sister Asthma Brother No Known Problems Maternal Grandmother (more content not included)... [facility] 05-02-2022 Miscellaneous Notes Patient returned the call and left message on scheduling voicemail. Called patient back and LMOM for patient to call the office at [phone] to schedule. Luciana Prescott May 02, 2022 4:18 PM Left message to schedule. Ref. By: Dr. Paul Quezada - [facility] Ref. To: Ant Stewart Re: Care Clinic referral received from Paul Quezada MD, for perineal pain and granulation tissue. 32 yo - s/p Vacuum-assisted VD on 01/03 w/ 2nd degree lac Thank you, Khadra Moses PSS documented in this encounter [facility] 05-02-2022 Miscellaneous Notes VM left at mobile number re: PP clinic referral. Lora Pinto RN Care Clinic referral received from Paul Quezada MD, for perineal pain and granulation tissue 32 yo s/p Vacuum-assisted VD on 01/03 w/ 2nd degree lac LV: 04/26 HPI: 32-year-old female who had a vacuum-assisted vaginal delivery and second-degree perineal laceration repair on 01/03/2022 presents for follow-up of perineal granulation tissue today. Tissue is still quite sore. She has been using vaginal estrogen. I resected the granulation tissue on 04/10/2022. The sutures pulled apart patient notes that she has had some improvement in pain since then but still has pain and discomfort. She has not had intercourse since then. She still breast-feeding. msg sent to introduce [facility]. Lora Pinto RN documented in this encounter [facility] 04-26-2022 History of Present illness Narrative Lana Salguero is a 32 year old female who presents for problem visit for f/u granulation tissue . HPI: 32-year-old female who had a vacuum-assisted vaginal delivery and second-degree perineal laceration repair on 01/03/2022 presents for follow-up of perineal granulation tissue today. Tissue is still quite sore. She has been using vaginal estrogen. I resected the granulation tissue on 04/10/2022. The sutures pulled apart patient notes that she has had some improvement in pain since then but still has pain and discomfort. She has not had intercourse since then. She still breast-feeding. OB History T1 L1 SAB1 IAB0 Ectopic0 Multiple0 Live Births1 [employer] History LMP: 03/27/2021 (Approximate), Age at Menarche: Age at First : Age at Menopause: [employer] History Comments: Sexual Activity: Yes; Male Contraception: None PAST MEDICAL HISTORY Diagnosis Date Abnormal Pap smear of cervix 2017 and 2019 HPV 2021, COVID 05/06/2021 Pap smear abnormality of cervix/human papillomavirus (HPV) positive Seasonal allergies PAST SURGICAL HISTORY Procedure Laterality Date PAST SURGICAL HISTORY OF wisdom teeth VAGINOSCOPY FAMILY HISTORY Problem Relation Age of Onset Narcolepsy Mother Hypertension Mother Depression Father Suicide / Suicidal Behaviors Father Alcohol/Drug Father No Known Problems Sister No Known Problems Sister Asthma Brother No Known Problems Maternal Grandmother No Known Problems Maternal Grandfather Stroke Paternal Grandmother Heart Paternal Grandfather Diabetes Paternal Uncle Social History Tobacco Use Smoking status: Former Years: 10.00 Types: Cigarettes Quit date: 2019 Years since quittin.9 Smokeless tobacco: Never Vaping Use Vaping Use: Former Quit date: 03/16/2021 Substance Use Topics Alcohol use: Not Currently Drug use: No Current Outpatient Medications Medication Sig Norethindrone, Contraceptive, (ORTHO MICRONOR) 0.35 mg tablet Take 1 tablet by mouth once daily. estradiol (ESTRACE) 0.01 % (0.1 mg/gram) vaginal cream apply 1/4 inch of cream to vaginal introitus qhs for 12 weeks acetaminophen (TYLENOL ORAL) Take by mouth. prental multivitamin 27 mg iron- 800 mcg tablet Take 1 tablet by mouth once daily. loratadine (CLARITIN ORAL) Take by mouth. (Patient not taking: No sig reported) No current facility-administered medications for this visit. Allergies As of Date: 04/26/2022 (No Known Allergies) Fully Assessed 04/18/2022 Allergies and current medication updated:Yes EXAM: LMP 03/27/2021 GENERAL: pleasant, female in no apparent distress PELVIC: Normal labia. Normal mons pubis. Introitus with open area and firm nodular area at introitus that is approximately 1 x 1.5 cm. It is tender. There is some granulation tissue. Normal perianal area. Cervix is normal in appearance. Vaginal woodson are normal in appearance with physiological discharge. ASSESSMENT AND PLAN: Encounter Diagnosis ICD-10-CM 1. Granulation tissue at obstetrical laceration site L92.9 CONSULT TO CARE CLINIC Discussed with the patient at this point I would like a second opinion from the perineal wound clinic. Continue soaks in warm water and use of vaginal estrogen. Offered lidocaine gel but patient declines. Granulation tissue does not seem to be improving. Medical Decision Making: Medical Decision Making Level: 1 - N/A Paul Quezada MD documented in this encounter [facility] 04-18-2022 History of Present illness Narrative Lana Salguero is a 32 year old female who presents for problem visit for follow up vaginal scar removal. States she is still having some pain in the perineal area and feels like an area has opened up. No bleeding. Using vaginal estrogen. No pain w/ urination or BM. OB History T1 L1 SAB1 IAB0 Ectopic0 Multiple0 Live Births1 [employer] History LMP: 03/27/2021 (Approximate), Age at Menarche: Age at First : Age at Menopause: [employer] History Comments: Sexual Activity: Yes; Male Contraception: None PAST MEDICAL HISTORY Diagnosis Date Abnormal Pap smear of cervix 2017 and 2019 HPV 2021, COVID 05/06/2021 Pap smear abnormality of cervix/human papillomavirus (HPV) positive Seasonal allergies PAST SURGICAL HISTORY Procedure Laterality Date PAST SURGICAL HISTORY OF wisdom teeth VAGINOSCOPY FAMILY HISTORY Problem Relation Age of Onset Narcolepsy Mother Hypertension Mother Depression Father Suicide / Suicidal Behaviors Father Alcohol/Drug Father No Known Problems Sister No Known Problems Sister Asthma Brother No Known Problems Maternal Grandmother No Known Problems Maternal Grandfather Stroke Paternal Grandmother Heart Paternal Grandfather Diabetes Paternal Uncle Social History Tobacco Use Smoking status: Former Years: 10.00 Types: Cigarettes Quit date: 2018 Years since quittin.9 Smokeless tobacco: Never Vaping Use Vaping Use: Former Quit date: 03/16/2021 Substance Use Topics Alcohol use: Not Currently Drug use: No Current Outpatient Medications Medication Sig Norethindrone, Contraceptive, (ORTHO MICRONOR) 0.35 mg tablet Take 1 tablet by mouth once daily. estradiol (ESTRACE) 0.01 % (0.1 mg/gram) vaginal cream apply 1/4 inch of cream to vaginal introitus qhs for 12 weeks acetaminophen (TYLENOL ORAL) Take by mouth. prental multivitamin 27 mg iron- 800 mcg tablet Take 1 tablet by mouth once daily. loratadine (CLARITIN ORAL) Take by mouth. (Patient not taking: No sig reported) No current facility-administered medications for this visit. Allergies As of Date: 04/18/2022 (No Known Allergies) Fully Assessed 04/18/2022 Allergies and current medication updated:Yes EXAM: BP 102/66 Wt 121 lb (54.9kg) LMP 03/27/2021 Vulva-perineal wound does appear to have opened somewhat. Sutures are still there and intact. There is still some firm scar tissue. No obvious granulation tissue. No purulent discharge. No surrounding erythema. Sutures removed. Edges were then bleeding and touched with silver nitrate. ASSESSMENT AND PLAN: Discussed with the patient the vulvar biopsy results. The skin tag appearing area came back consistent with chronic inflammation. Recommend avoid irritants. If she wants the remainder of these removed discussed with her would be considered cosmetic. Would recommend monitoring for now. Granulation tissue from the perineal area removed. Wound did appear to open up somewhat. Discussed with the patient will allow to heal and for now. Return in 7 to 10 days. Continue perineal wound care. If not significantly improved will refer to clinic for eval. Medical Decision Making: Medical Decision Making Level: 1 - N/A Paul Quezada MD documented in this encounter [facility] 04-10-2022 Miscellaneous Notes Addended by: PAUL QUEZADA on: 04/10/2022 11:42 AM Modules accepted: Orders Addended by: ZAIRA OLIVO on: 04/10/2022 11:36 AM Modules accepted: Orders documented in this encounter [facility] 04-10-2022 History of Present illness Narrative Unemployment Benefits Claims Taker offered: Patient declines. Lana Salguero is a 32 year old female who presents today for a vaginal scar revision Indication: granulation tissue. UNIVERSAL PROTOCOL / SAFETY CHECKLIST Procedure to be Performed: Vaginal scar revision Sign In: A Moment of CARE was completed. Personnel directly involved with the procedure wore the appropriate PPE (Personal Protective Equipment). Patient/Surrogate Stated/Verified: PATIENT VERIFIED(optional for EMERGENT procedures): Patient name, Date of , Relevant allergies, and The intended procedure Time Out Communication: Intended patient and procedure match the source documents. Consent documented and matches the intended procedure. No implant(s) inserted. Sign Out: SIGN OUT (optional for EMERGENT procedures): All specimen containers correctly labeled. All instruments, equipment, possible retained foreign bodies accounted for. Post-procedure follow-up management communicated and Plan of Care Visit completed when applicable. PROCEDURE NOTE: GROSS LESIONS: Yes, at posterior forchette there is some erythema and granulation tissue that is friable and tender BIOPSY: Area was cleansed with betadine and anesthetized with 3mL 1% lidocaine with 1:100,000 epi. An eliptical incision was made around the grnulation tissue and it was removed. One of the small lesions on left labia removed as well, sent separtely HEMOSTASIS: Obtained with suture 3-0 rapide Procedure Summary: Patient tolerated procedure well ASSESSMENT: vaginal granulation tissue/lesion PLAN: Specimens labeled and sent to Pathology. Will notify patient of results in 1-2 weeks. Post-procedure instructions reviewed. Paul Quezada MD documented in this encounter [facility] 03-27-2022 Miscellaneous Notes Addended by: PAUL QUEZADA on: 03/27/2022 03:55 PM Modules accepted: Orders Addended by: TAYA EDWARDS MA on: 03/27/2022 03:17 PM Modules accepted: Orders documented in this encounter [facility] 03-27-2022 History of Present illness Narrative Lana Salguero is a 32 year old female who presents for problem visit for f/u granulation tissue. Feeling better but still not right. Not painful just doesn't feel right. No pain w/ BMs. C/o some increased discharge and vaginal odor.Has not had intercourse b/c of the pain. BM and urination back to normal. . OB History T1 L1 SAB1 IAB0 Ectopic0 Multiple0 Live Births1 [employer] History LMP: 03/27/2021 (Approximate), Age at Menarche: Age at First : Age at Menopause: [employer] History Comments: Sexual Activity: Yes; Male Contraception: None PAST MEDICAL HISTORY Diagnosis Date Abnormal Pap smear of cervix 2017 and 2019 HPV 2021, COVID 05/06/2021 Pap smear abnormality of cervix/human papillomavirus (HPV) positive Seasonal allergies PAST SURGICAL HISTORY Procedure Laterality Date PAST SURGICAL HISTORY OF wisdom teeth VAGINOSCOPY FAMILY HISTORY Problem Relation Age of Onset Narcolepsy Mother Hypertension Mother Depression Father Suicide / Suicidal Behaviors Father Alcohol/Drug Father No Known Problems Sister No Known Problems Sister Asthma Brother No Known Problems Maternal Grandmother No Known Problems Maternal Grandfather Stroke Paternal Grandmother Heart Paternal Grandfather Diabetes Paternal Uncle Social History Tobacco Use Smoking status: Former Years: 10.00 Types: Cigarettes Quit date: 2018 Years since quittin.8 Smokeless tobacco: Never Vaping Use Vaping Use: Former Quit date: 03/16/2021 Substance Use Topics Alcohol use: Not Currently Drug use: No Current Outpatient Medications Medication Sig Norethindrone, Contraceptive, (ORTHO MICRONOR) 0.35 mg tablet Take 1 tablet by mouth once daily. estradiol (ESTRACE) 0.01 % (0.1 mg/gram) vaginal cream apply 1/4 inch of cream to vaginal introitus qhs for 12 weeks acetaminophen (TYLENOL ORAL) Take by mouth. prental multivitamin 27 mg iron- 800 mcg tablet Take 1 tablet by mouth once daily. loratadine (CLARITIN ORAL) Take by mouth. No current facility-administered medications for this visit. Allergies As of Date: 03/27/2022 (No Known Allergies) Fully Assessed 03/27/2022 Allergies and current medication updated:Yes EXAM: BP 110/72 Wt 126 lb (57.2kg) LMP 03/27/2021 GENERAL: pleasant, female in no apparent distress HEENT: Normocephalic, atraumatic, mucus membranes moist, and no lesions PELVIC: normal labia and mons, normal hair distribution pattern. Normal cervix and vagina. At posterior forchette there eis a 7 x 8 mm firm area w/ some beefy red granulation tissue that is friable. Moderately tender, minimally improved from last visit BIMANUAL: uterus normal size, shape and consistency, no adnexal masses, and non-tender ASSESSMENT AND PLAN: Vulvar granulation tissue after vaginal delivery w/ repair. Minimal improvement. R/B/A/P to continued expectant management w/ local care and estrogen vs resection reviewed. Ok for use of lidocaine locally in interim. Vaginitis swab done. D/w her hormonal changes and expectations w/ . Patient prefers to schedule revision of perineal scar. Medical Decision Making: Medical Decision Making Level: 1 - N/A Paul Quezada MD documented in this encounter [facility] 02-13-2022 History of Present illness Narrative VISIT Lana Salguero is a 32 year old year old here for visit. Delivery Summary: vacuum assisted vag delivery ROS/ Recovery: Feeding: Breast feeding problems: None Menses since delivery: n/a Menstrual pattern prior to : Regular periods [place] since delivery: Not resumed Depression: denies symptoms of depression. OB Depression and Anxiety Screening- This Encounter (since 02/12/2022) Over the past 2 weeks have you felt down, depressed, or hopeless? Negative Over the past two weeks, have you felt little interest or pleasure in doing things? Negative Feeling nervous, anxious or on edge 0-Not at all Not being able to stop or control worrying 0-Not al all Anxiety Pre-Screening Total (If >/= 3 additional questions will be reviewed) 0 Emotional support: Yes Bowel symptoms: Negative for abdominal discomfort, blood in stools or black stools and change in bowel habits Abdomen: N/A Bladder symptoms: No dysuria, gross hematuria, urinary frequency, urinary urgency, or incontinence Other issues: None Last Pap: 2019 normal HPV: negative PAST MEDICAL HISTORY Diagnosis Date Abnormal Pap smear of cervix 2017 and 2020 HPV 2021, COVID 05/06/2021 Pap smear abnormality of cervix/human papillomavirus (HPV) positive Seasonal allergies PAST SURGICAL HISTORY Procedure Laterality Date PAST SURGICAL HISTORY OF wisdom teeth VAGINOSCOPY FAMILY HISTORY Problem Relation Age of Onset Narcolepsy Mother Hypertension Mother Depression Father Suicide / Suicidal Behaviors Father Alcohol/Drug Father No Known Problems Sister No Known Problems Sister Asthma Brother No Known Problems Maternal Grandmother No Known Problems Maternal Grandfather Stroke Paternal Grandmother Heart Paternal Grandfather Diabetes Paternal Uncle Social History Tobacco Use Smoking status: Former Years: 10.00 Types: Cigarettes Quit date: 2019 Years since quittin.7 Smokeless tobacco: Never Vaping Use Vaping Use: Former Quit date: 03/16/2021 Substance Use Topics Alcohol use: Not Currently Drug use: No PHYSICAL EXAMINATION: Ht 5' 2.75 (1.59m) Wt 131 lb (59.4kg) LMP 03/27/2021 BMI 23.39 kg/(m^2). GENERAL: pleasant, female in no apparent distress HEENT: Normocephalic, atraumatic, mucus membranes moist, and no lesions NECK: Supple, full range of motion, no adenopathy, and thyroid normal DERMATOLOGY: Normal, without lesions, non-icteric, and non-hirsute BREAST: soft, non-tender, symmetric, no dominant mass, normal nipple-areolar complex, no lymphadenopathy, and no nipple discharge CHEST: Normal inspiratory effort ABDOMEN: soft, non-tender, and no masses. INCISION: N/A PELVIC: external genitalia normal, normal Bartholin's glands, urethra, [place]'s glands, no vulvar lesions, no cervical lesions, good vaginal support, physiologic discharge present, normal appearing perineal body and perianal region, small amount of granulation tissue at introitus BIMANUAL: uterus normal size, shape and consistency, no adnexal masses, and non-tender NEURO: alert and oriented x3,exam grossly non-focal EXTREMITIES: normal ASSESSMENT AND PLAN: 32 year old status post , CS, and Vacuum with normal course. Contraception plan: Oral contraceptives Follow up: RTC for annual exams and PRN Granulation tissue at introitus- treat w/ estrogen, f/u in 6 weeks Paul Quezada MD documented in this encounter [facility] 01-30-2022 Miscellaneous Notes Patient notified. Reviewed bleeding precautions. Tanya Rosario RN Agree with nurse- this may be first period which can occur even if . This cycle may be heavier than usual. Please review bleeding precautions with patient and have her keep already scheduled PP visit. Pamela Barrios APRN.CNM Patient delivered 01/03/22. Calling to report that she started bleeding on 01/28. Needing to change her pad 5-6 times a day. Saturating pad front to back, but not side to side. Passed x1 blood clot today. Length the size of a soft ball, but not the circumference of one. Denies cramping or pain. She is . Advised that she possibly started her menses. Patient questioning this since she is . Has 6 week PP visit scheduled for 02/13. Tanya Rosario RN documented in this encounter [facility] 01-16-2022 History of Present illness Narrative EARLY VISIT Lana Salguero is a 32 year old here for 2 week visit. Delivery Summary: vag- vacuum 01/03/22 ROS: General: Denies any fever or chills Hypertension Screening: Headache? No. Visual Changes? No Epigastric Pain? No Increased Swelling? No Taking any BP medications at home? No If applicable, monitoring BP at home? (If Yes, include results) NA Mood: normal Depression: denies symptoms of depression. OB Depression and Anxiety Screening- This Encounter (since 01/15/2022) Over the past 2 weeks have you felt down, depressed, or hopeless? Negative Over the past two weeks, have you felt little interest or pleasure in doing things? Negative Feeling nervous, anxious or on edge 0-Not at all Not being able to stop or control worrying 0-Not al all Anxiety Pre-Screening Total (If >/= 3 additional questions will be reviewed) 0 Feeding: Breast feeding problems: None Bladder: No dysuria, gross hematuria, urinary frequency, urinary urgency, or incontinence Bowel symptoms: Negative for abdominal discomfort, blood in stools or black stools and change in bowel habits Abdomen: N/A Bleeding: light flow Bottom and Perineum: No issues Sleep: no sleep concerns, feels rested Emotional support: Yes Exercise: N/A Other issues: None PHYSICAL EXAMINATION: BP 108/68 Wt 138 lb (62.6 kg) LMP 03/27/2021 (Approximate) Yes BMI 24.61 kg/m General: pleasant,female in no apparent distress, A&O x 3. Skin warm and intact. Breast: Deferred Abdomen: Deferred /Incision: N/A Pelvic: Deferred Bimanual: Deferred ASSESSMENT AND PLAN: 32 year old status post with normal course. Contraception plan: Oral contraceptives . Reinforced 6-week pelvic rest. Encouraged condom usage should patient deviate. Education: resources provided - see MA/RN note Follow up: Return to Clinic for 6 week visit and as needed Medical Decision Making: Medical Decision Making Level: 1 - N/A Paul Quezada MD documented in this encounter [facility] 01-03-2022 History of Present illness Narrative Patient delivered via VAVD by Dr. Quezada on 01/03/22 at [facility]. See OB history. Evelin Garnica RN documented in this encounter [facility] 12-28-2021 Miscellaneous Notes RR_ Doing well. No VB/LOF. Good FM. No regular ctx, few BH. Some mild edema. D/w her recommendation for induction. R/B/A reviewed. Pit/arom/streeter and cytotec. Scheduled. Consent signed. Questions answered. Paul Quezada MD documented in this encounter [facility] 12-28-2021 Rebecca Edwards Ma - 12/28/2021 9:15 AM EDT SEQUENTIAL SCREENINGS The [facility] offers sequential screenings for women who are interested in screenings for chromosomal abnormalities and certain defects during a . The sequential screen combines ultrasound and blood tests to determine the risk of chromosomal abnormalities, including Down's Syndrome (Trisomy 21) and Trisomy 18, as well as open neural tube defects including spina bifida. Ultrasound examination is performed between 11 weeks and 13 weeks gestational age. Blood tests are drawn after the ultrasound and again later in the between 15 and 21 weeks gestational age. Please let your physician know if you are interested in this testing. It will require an appointment with our bakery technician. This is not an ultrasound performed by a physician in our office during a routine visit. SIGNS AND SYMPTOMS OF LABOR 1. Contractions every 10 minutes or more often 2. Clear, pink, or brownish fluid (water) leaking from vagina 3. Feeling that baby is pushing down, pressure 4. Low, dull backache 5. Cramps that feel like a period 6. Cramps with or without diarrhea If you notice any of the above symptoms, contact our office at [phone] and ask to speak with a nurse. After hours, you can call doctors registry at [phone] OR call [facility] at [phone] and ask to have the doctor distillation operator paged. If you consider this an emergency, dial 9-1-0 or go to your nearest emergency department. NEED HELP? Are you dealing with a violent or abusive relationship? Are you a victim of rape or sexual assult? Call [facility] ([place]) 24 hour Crisis Hotline: 575.708.2254 or 664-147-8587. MANUAL Your Guide to a Healthy manual is now on-line. Visit [email or web address] to download your free copy documented in this encounter [facility] 12-28-2021 Miscellaneous Notes Order signed. Pamela Barrios APRN.CNM Patient 38w1d has BPP today at 0830. Please file pended order. Thank you. Randa Vigil RN documented in this encounter [facility] 12-20-2021 Miscellaneous Notes Sent records to be scanned to [facility]. Copy retained in Dr Quezada's fax drawer Received medical records. Copy of Records sent with Episode to [facility]. Records sent to Dr Quezada for review Received records of only the last OB visit patient had in [place]. Called and spoke with Binta in medical release for [facility] and asked for entire OB record to be sent to us for the including ultrasounds and lab work. I did call medical records and spoke with in records release for [facility] [employer] to ask for records to be transferred once again. She states we will get these no later than tomorrow morning Patient is transferring care from [facility]. Seen for Pre new OB visit today. Has new OB with Dr. Quezada at 1:00. She is having a difficult time getting her medical records. She states that she did sign a release form on December 05 from [facility] [employer]. I called and spoke with Albertina at . I have asked her to fax medical records to us today. I have asked her to fax medical records to us today. documented in this encounter [facility] 12-19-2021 History of Past i llness Narrative Problem Noted Date Resolved Date SGA (small for gestational a ge), , affecting care of mother, antepartum, first trimester, fetus 3 12/19/2021 Overview: December 19, 2021 EFW 6th percentile. BPP weekly. Waiting for records to confirm SUDEEP. Plan delivery at 38-39 weeks per MFM. Paul Quezada MD COVID-19 affecting in first trimester 12/19/2021 01/16/2022 Overview: 12/19/2021 Received medical records from [place]. Patient had symptoms of Covid starting 05/04. Tested Positive 12/25. TKRN Rh negative state in antepartum period 2 01/16/2022 Overview: 12/19/2021 Per records reviewed Received Rhogam in [place] 10/10/2021. TKRN Elevated glucose level 12/19/2021 2 Overview: 12/19/2021er review of records 1 hour GCT 180. Normal 3 hour GTT. TKRN with care elsewhere, antepart um 12/14/2021 01/16/2022 Overview: December 20, 2021. Records reviewed. Neg NIPT. Declined AFP. +RPR, neg antiterponemal ab, repeat RPR in September neg. Abnl 1hr, normal 3 hr. Paul Quezada MD 12/14/2021 Patient is transferring care from [facility]. She is having a difficult time getting her medical records. She states that she did sign a release form on December 05 from [facility] [employer]. I called and spoke with Albertina at . I have asked her to fax medical records to us today. Patient states that there has been some umbilical cord insertion issues this . She states the baby has been small for gestational age and she did see maternal- medicine. I have given patient information on childbirth education classes at [facility] TKRN documented as of this encounter (statuses as of 01/16/2022) [facility]08-09-2022 History of Past illness Narrative* Problem Noted Date Resolved Date SGA (small for gestational a ge), , affecting care of mother, antepartum, first trimester, fetus 3 12/19/2021 2 Overview: December 19, 2021 EFW 6th percentile. BPP weekly. Waiting for records to confirm SUDEEP. Plan delivery at 38-39 weeks per MFM. Paul Quezada MD COVID-19 affecting in first trimester 12/19/2021 01/16/2022 Overview: 12/19/2021 Received medical records from [place]. Patient had symptoms of Covid starting 05/04. Tested Positive 05/06. TKRN Rh negative state in antepartum period 2 01/16/2022 Overview: 12/19/2021 Per records reviewed Received Rhogam in [place] 10/10/2021. TKRN Elevated glucose level 12/19/2021 2 Overview: 12/19/2021er review of records 1 hour GCT 180. Normal 3 hour GTT. TKRN with care elsewhere, antepart um 12/14/2021 01/16/2022 Overview: December 20, 2021. Records reviewed. Neg NIPT. Declined AFP. +RPR, neg antiterponemal ab, repeat RPR in September neg. Abnl 1hr, normal 3 hr. Paul Quezada MD 12/14/2021 Patient is transferring care from [facility]. She is having a difficult time getting her medical records. She states that she did sign a release form on December 05 from [facility] [employer]. I called and spoke with Albertina at . I have asked her to fax medical records to us today. Patient states that there has been some umbilical cord insertion issues this . She states the baby has been small for gestational age and she did see maternal- medicine. I have given patient information on childbirth education classes at [facility] TKRN documented as of this encounter (statuses as of 01/30/2022) [facility]08-09-2022 History of Past illness Narrative* Problem Noted Date Resolved Date SGA (small for gestational a ge), , affecting care of mother, antepartum, first trimester, fetus 3 12/19/2021 2 Overview: December 19, 2021 EFW 6th percentile. BPP weekly. Waiting for records to confirm SUDEEP. Plan delivery at 38-39 weeks per M. Paul Quezada MD COVID-19 affecting in first trimester 12/19/2021 01/16/2022 Overview: 12/19/2021 Received medical records from [place]. Patient had symptoms of Covid starting 05/04. Tested Positive 05/06. TKRN Rh negative state in antepartum period 2 01/16/2022 Overview: 12/19/2021 Per records reviewed Received Rhogam in [place] 10/10/2021. TKRN Elevated glucose level 12/19/2021 2 Overview: 12/19/2021er review of records 1 hour GCT 180. Normal 3 hour GTT. TKRN with care elsewhere, antepart um 12/14/2021 01/16/2022 Overview: December 20, 2021. Records reviewed. Neg NIPT. Declined AFP. +RPR, neg antiterponemal ab, repeat RPR in September neg. Abnl 1hr, normal 3 hr. Paul Quezada MD 12/14/2021 Patient is transferring care from [facility]. She is having a difficult time getting her medical records. She states that she did sign a release form on December 05 from [facility] [employer]. I called and spoke with Albertina at . I have asked her to fax medical records to us today. Patient states that there has been some umbilical cord insertion issues this . She states the baby has been small for gestational age and she did see maternal- medicine. I have given patient information on childbirth education classes at [facility] TKRN documented as of this encounter (statuses as of 02/13/2022) [facility]08-09-20[facility] History of Past illness Narrative* Problem Noted Date Resolved Date SGA (small for gestational a ge), , affecting care of mother, antepartum, first trimester, fetus 3 12/19/2021 2 Overview: December 19, 2021 EFW 6th percentile. BPP weekly. Waiting for records to confirm SUDEEP. Plan delivery at 38-39 weeks per MFM. Paul Quezada MD COVID-19 affecting in first trimester 12/19/2021 01/16/2022 Overview: 12/19/2021 Received medical records from [place]. Patient had symptoms of Covid starting 05/04. Tested Positive 05/06. TKRN Rh negative state in antepartum period 2 01/16/2022 Overview: 12/19/2021 Per records reviewed Received Rhogam in [place] 10/10/2021. TKRN Elevated glucose level 12/19/2021 2 Overview: 12/19/2021er review of records 1 hour GCT 180. Normal 3 hour GTT. TKRN with care elsewhere, antepart um 12/14/2021 01/16/2022 Overview: December 20, 2021. Records reviewed. Neg NIPT. Declined AFP. +RPR, neg antiterponemal ab, repeat RPR in September neg. Abnl 1hr, normal 3 hr. Paul Quezada MD 12/14/2021 Patient is transferring care from [facility]. She is having a difficult time getting her medical records. She states that she did sign a release form on December 05 from [facility] [employer]. I called and spoke with Albertina at . I have asked her to fax medical records to us today. Patient states that there has been some umbilical cord insertion issues this . She states the baby has been small for gestational age and she did see maternal- medicine. I have given patient information on childbirth education classes at [facility] TKRN documented as of this encounter (statuses as of 03/27/2022) [facility]08-09-[facility]22 History of Past illness Narrative* Problem Noted Date Resolved Date SGA (small for gestational a ge), , affecting care of mother, antepartum, first trimester, fetus 3 12/19/2021 2 Overview: December 19, 2021 EFW 6th percentile. BPP weekly. Waiting for records to confirm SUDEEP. Plan delivery at 38-39 weeks per M. Paul Quezada MD COVID-19 affecting in first trimester 12/19/2021 01/16/2022 Overview: 12/19/2021 Received medical records from [place]. Patient had symptoms of Covid starting 05/04. Tested Positive 05/06. TKRN Rh negative state in antepartum period 2 01/16/2022 Overview: 12/19/2021 Per records reviewed Received Rhogam in [place] 10/10/2021. TKRN Elevated glucose level 12/19/2021 2 Overview: 12/19/2021er review of records 1 hour GCT 180. Normal 3 hour GTT. TKRN with care elsewhere, antepart um 12/14/2021 01/16/2022 Overview: December 20, 2021. Records reviewed. Neg NIPT. Declined AFP. +RPR, neg antiterponemal ab, repeat RPR in September neg. Abnl 1hr, normal 3 hr. Paul Quezada MD 12/14/2021 Patient is transferring care from [facility]. She is having a difficult time getting her medical records. She states that she did sign a release form on December 05 from [facility] [employer]. I called and spoke with Albertina at . I have asked her to fax medical records to us today. Patient states that there has been some umbilical cord insertion issues this . She states the baby has been small for gestational age and she did see maternal- medicine. I have given patient information on childbirth education classes at [facility] TKRN documented as of this encounter (statuses as of 04/10/2022) [facility]08-09-[facility] History of Past illness Narrative* Problem Noted Date Resolved Date SGA (small for gestational a ge), , affecting care of mother, antepartum, first trimester, fetus 3 12/19/2021 2 Overview: December 19, 2021 EFW 6th percentile. BPP weekly. Waiting for records to confirm SUDEEP. Plan delivery at 38-39 weeks per M. Paul Quezada MD COVID-19 affecting in first trimester 12/19/2021 01/16/2022 Overview: 12/19/2021 Received medical records from [place]. Patient had symptoms of Covid starting 05/04. Tested Positive 05/06. TKRN Rh negative state in antepartum period 2 01/16/2022 Overview: 12/19/2021 Per records reviewed Received Rhogam in [place] 10/10/2021. TKRN Elevated glucose level 12/19/2021 2 Overview: 12/19/2021er review of records 1 hour GCT 180. Normal 3 hour GTT. TKRN with care elsewhere, antepart um 12/14/2021 01/16/2022 Overview: December 20, 2021. Records reviewed. Neg NIPT. Declined AFP. +RPR, neg antiterponemal ab, repeat RPR in September neg. Abnl 1hr, normal 3 hr. Paul Quezada MD 12/14/2021 Patient is transferring care from [facility]. She is having a difficult time getting her medical records. She states that she did sign a release form on December 05 from [facility] [employer]. I called and spoke with Albertina at . I have asked her to fax medical records to us today. Patient states that there has been some umbilical cord insertion issues this . She states the baby has been small for gestational age and she did see maternal- medicine. I have given patient information on childbirth education classes at [facility] TKRN documented as of this encounter (statuses as of 04/11/2022) [facility]08-09-2022 History of Past illness Narrative* Problem Noted Date Resolved Date SGA (small for gestational a ge), , affecting care of mother, antepartum, first trimester, fetus 3 12/19/2021 2 Overview: December 19, 2021 EFW 6th percentile. BPP weekly. Waiting for records to confirm SUDEEP. Plan delivery at 38-39 weeks per MFM. Paul Quezada MD COVID-19 affecting in first trimester 12/19/2021 01/16/2022 Overview: 12/19/2021 Received medical records from [place]. Patient had symptoms of Covid starting 05/04. Tested Positive 05/06. TKRN Rh negative state in antepartum period 2 01/16/2022 Overview: 12/19/2021 Per records reviewed Received Rhogam in [place] 10/10/2021. TKRN Elevated glucose level 12/19/2021 Overview: 12/19/2021er review of records 1 hour GCT 180. Normal 3 hour GTT. TKRN with care elsewhere, antepart um 12/14/2021 01/16/2022 Overview: December 20, 2021. Records reviewed. Neg NIPT. Declined AFP. +RPR, neg antiterponemal ab, repeat RPR in September neg. Abnl 1hr, normal 3 hr. Paul Quezada MD 12/14/2021 Patient is transferring care from [facility]. She is having a difficult time getting her medical records. She states that she did sign a release form on December 05 from [facility] [employer]. I called and spoke with Albertina at [phone]. I have asked her to fax medical records to us today. Patient states that there has been some umbilical cord insertion issues this . She states the baby has been small for gestational age and she did see maternal- medicine. I have given patient information on childbirth education classes at [facility] TKRN documented as of this encounter (statuses as of 04/18/2022) [facility]08-09-[facility] History of Past illness Narrative* Problem Noted Date Resolved Date SGA (small for gestational a ge), , affecting care of mother, antepartum, first trimester, fetus 3 12/19/2021 2 Overview: December 19, 2021 EFW 6th percentile. BPP weekly. Waiting for records to confirm SUDEEP. Plan delivery at 38-39 weeks per MFM. Paul Quezada MD COVID-19 affecting in first trimester 12/19/2021 01/16/2022 Overview: 12/19/2021 Received medical records from [place]. Patient had symptoms of Covid starting 05/04. Tested Positive 05/06. TKRN Rh negative state in antepartum period 2 01/16/2022 Overview: 12/19/2021 Per records reviewed Received Rhogam in [place] 10/10/2021. TKRN Elevated glucose level 12/19/2021 2 Overview: 12/19/2021er review of records 1 hour GCT 180. Normal 3 hour GTT. TKRN with care elsewhere, antepart um 12/14/2021 01/16/2022 Overview: December 20, 2021. Records reviewed. Neg NIPT. Declined AFP. +RPR, neg antiterponemal ab, repeat RPR in September neg. Abnl 1hr, normal 3 hr. Paul Quezada MD 12/14/2021 Patient is transferring care from [facility]. She is having a difficult time getting her medical records. She states that she did sign a release form on December 05 from [facility] [employer]. I called and spoke with Albertina at . I have asked her to fax medical records to us today. Patient states that there has been some umbilical cord insertion issues this . She states the baby has been small for gestational age and she did see maternal- medicine. I have given patient information on childbirth education classes at [facility] TKRN documented as of this encounter (statuses as of 04/26/2022) [facility]08-09-[facility] History of Past illness Narrative* Problem Noted Date Resolved Date SGA (small for gestational a ge), , affecting care of mother, antepartum, first trimester, fetus 3 12/19/2021 2 Overview: December 19, 2021 EFW 6th percentile. BPP weekly. Waiting for records to confirm SUDEEP. Plan delivery at 38-39 weeks per MFM. Paul Quezada MD COVID-19 affecting in first trimester 12/19/2021 01/16/2022 Overview: 12/19/2021 Received medical records from [place]. Patient had symptoms of Covid starting 05/04. Tested Positive 05/06. TKRN Rh negative state in antepartum period 2 01/16/2022 Overview: 12/19/2021 Per records reviewed Received Rhogam in [place] 10/10/2021. TKRN Elevated glucose level 12/19/2021 2 Overview: 12/19/2021er review of records 1 hour GCT 180. Normal 3 hour GTT. TKRN with care elsewhere, antepart um 12/14/2021 01/16/2022 Overview: December 20, 2021. Records reviewed. Neg NIPT. Declined AFP. +RPR, neg antiterponemal ab, repeat RPR in September neg. Abnl 1hr, normal 3 hr. Paul Quezada MD 12/14/2021 Patient is transferring care from [facility]. She is having a difficult time getting her medical records. She states that she did sign a release form on December 05 from [facility] [employer]. I called and spoke with Albertina at [phone]. I have asked her to fax medical records to us today. Patient states that there has been some umbilical cord insertion issues this . She states the baby has been small for gestational age and she did see maternal- medicine. I have given patient information on childbirth education classes at [facility] TKRN documented as of this encounter (statuses as of 05/02/2022) [facility]08-[facility] History of Past illness Narrative* Problem Noted Date Resolved Date SGA (small for gestational a ge), , affecting care of mother, antepartum, first trimester, fetus 3 12/19/2021 2 Overview: December 19, 2021 EFW 6th percentile. BPP weekly. Waiting for records to confirm SUDEEP. Plan delivery at 38-39 weeks per M. Paul Quezada MD COVID-19 affecting in first trimester 12/19/2021 01/16/2022 Overview: 12/19/2021 Received medical records from [place]. Patient had symptoms of Covid starting 05/04. Tested Positive 05/06. TKRN Rh negative state in antepartum period 2 01/16/2022 Overview: 12/19/2021 Per records reviewed Received Rhogam in [place] 10/10/2021. TKRN Elevated glucose level 12/19/2021 2 Overview: 12/19/2021er review of records 1 hour GCT 180. Normal 3 hour GTT. TKRN with care elsewhere, antepart um 12/14/2021 01/16/2022 Overview: December 20, 2021. Records reviewed. Neg NIPT. Declined AFP. +RPR, neg antiterponemal ab, repeat RPR in September neg. Abnl 1hr, normal 3 hr. Paul Quezada MD 12/14/2021 Patient is transferring care from [facility]. She is having a difficult time getting her medical records. She states that she did sign a release form on December 05 from [facility] [employer]. I called and spoke with Albertina at . I have asked her to fax medical records to us today. Patient states that there has been some umbilical cord insertion issues this . She states the baby has been small for gestational age and she did see maternal- medicine. I have given patient information on childbirth education classes at [facility] TKRN documented as of this encounter (statuses as of 05/22/2022) [facility]08-09-[facility] History of Past illness Narrative* Problem Noted Date Resolved Date SGA (small for gestational a ge), , affecting care of mother, antepartum, first trimester, fetus 3 12/19/2021 2 Overview: December 19, 2021 EFW 6th percentile. BPP weekly. Waiting for records to confirm SUDEEP. Plan delivery at 38-39 weeks per M. Paul Quezada MD COVID-19 affecting in first trimester 12/19/2021 01/16/2022 Overview: 12/19/2021 Received medical records from [place]. Patient had symptoms of Covid starting 05/04. Tested Positive 05/06. TKRN Rh negative state in antepartum period 2 01/16/2022 Overview: 12/19/2021 Per records reviewed Received Rhogam in [place] 10/10/2021. TKRN Elevated glucose level 12/19/2021 2 Overview: 12/19/2021er review of records 1 hour GCT 180. Normal 3 hour GTT. TKRN with care elsewhere, antepart um 12/14/2021 01/16/2022 Overview: December 20, 2021. Records reviewed. Neg NIPT. Declined AFP. +RPR, neg antiterponemal ab, repeat RPR in September neg. Abnl 1hr, normal 3 hr. Paul Quezada MD 12/14/2021 Patient is transferring care from [facility]. She is having a difficult time getting her medical records. She states that she did sign a release form on December 05 from [facility] [employer]. I called and spoke with Albertina at . I have asked her to fax medical records to us today. Patient states that there has been some umbilical cord insertion issues this . She states the baby has been small for gestational age and she did see maternal- medicine. I have given patient information on childbirth education classes at [facility] TKRN documented as of this encounter (statuses as of 05/24/2022) [facility]08-09-[facility] History of Past illness Narrative* Problem Noted Date Resolved Date SGA (small for gestational a ge), , affecting care of mother, antepartum, first trimester, fetus 3 12/19/2021 Overview: December 19, 2021 EFW 6th percentile. BPP weekly. Waiting for records to confirm SUDEEP. Plan delivery at 38-39 weeks per M. Paul Quezada MD COVID-19 affecting in first trimester 12/19/2021 01/16/2022 Overview: 12/19/2021 Received medical records from [place]. Patient had symptoms of Covid starting 05/04. Tested Positive 05/06. TKRN Rh negative state in antepartum period 2 01/16/2022 Overview: 12/19/2021 Per records reviewed Received Rhogam in [place] 10/10/2021. TKRN Elevated glucose level 12/19/2021 2 Overview: 12/19/2021er review of records 1 hour GCT 180. Normal 3 hour GTT. TKRN with care elsewhere, antepart um 12/14/2021 01/16/2022 Overview: December 20, 2021. Records reviewed. Neg NIPT. Declined AFP. +RPR, neg antiterponemal ab, repeat RPR in September neg. Abnl 1hr, normal 3 hr. Paul Quezada MD 12/14/2021 Patient is transferring care from [facility]. She is having a difficult time getting her medical records. She states that she did sign a release form on December 05 from [facility] [employer]. I called and spoke with Albertina at . I have asked her to fax medical records to us today. Patient states that there has been some umbilical cord insertion issues this . She states the baby has been small for gestational age and she did see maternal- medicine. I have given patient information on childbirth education classes at [facility] TKRN documented as of this encounter (statuses as of 08/10/2022) [facility]08-05-[facility] Miscellaneous Notes* Telephone Encounter - Isa Rboles RN - 12/15/2021 9:23 AM EDT Initial risk assessment form submitted 12/15/21 Isa Robles RN documented in this encounterAd[facility] History of Present illness Narrative* Paul Quezada MD - 12/14/2021 1:11 PM EDT INITIAL OB ASSESSMENT OB Provider: Paul Quezada MD HPI: aLna Salguero is a 31 year old female here to establish Obstetrical Care. Patient's last menstrual period was 03/27/2021 (approximate). from OB Dating Form. Cycle length: 32 days. Had growth scan last week. 35 week US 20th percentile size and 4lb 10 oz. Had NIPT and was negative for aneuploidy. States she had marginal insertion of cord on anatomy US. Complaints: None was unplanned but accepted. OB History T0 L0 SAB1 IAB0 Ectopic0 Multiple0 Live Births0 Prior : never History of 4th degree laceration: No Patient's Risk Screening for delivery: History of abnormal pap: Yes Prior treatment for cervical dysplasia: none. History of STDs: None Tobacco use: vape but stopped when found out . 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 Patient BMI over 30? No Marital Status:Co-habitating Partner: Name: Cullen Age: 27 Occupation: [employer] Gender: male History of STDs: None PAST MEDICAL HISTORY Diagnosis Date Abnormal Pap smear of cervix 2017 and 2019 HPV 2021, Seasonal allergies PAST SURGICAL HISTORY Procedure Laterality Date PAST SURGICAL HISTORY OF wisdom teeth No current outpatient medications on file prior to visit. No current facility-administered medications on file prior to visit. Review of Systems: GENERAL: Negative for: Fever or Chills HEENT: Negative for: Headache, Impaired Vision, Ringing in Ears, Nosebleeds NECK: Negative for: Swelling, Pain, Stiffness RESPIRATORY: Negative for: Cough, Shortness of breath, Wheezing GASTROINTESTINAL: Negative for: Heartburn, Constipation, Diarrhea, Blood in stool, Vomiting MUSCULOSKELETAL: Negative for: Muscle or joint pain, stiffness, Joint swelling NEUROLOGIC/PSYCHIATRIC: Negative for: Weakness, Paralysis, Numbness, Tingling, Tremor, Anxiety, Depression, Memory loss SKIN: Negative for: Rash, Itching GENITOURINARY: Negative for: vaginal itching, vaginal discharge, hematuria or dysuria PHYSICAL EXAM: LMP 03/27/2021 GENERAL: pleasant female in no apparent distress DERMATOLOGY: Normal, without lesions, non-icteric and non-hirsute NECK: Supple, full range of motion, no adenopathy and thyroid normal CHEST: Normal inspiratory effort BREAST: deferredABDOMEN: soft, non-tender and no masses NEURO: alert and oriented x3,exam grossly non-focal Clinical Pelvimetry: Pelvimetry clinically assessed as adequate Limited OB ultrasound exam: not performed ASSESSMENT: 31 year old at 36w1d wks gestational age PLAN: 1) Patient oriented to practice. Discussed nutrition, folic acid supplementation, dietary guidelines, exercise, smoking, alcohol, caffeine, and drug use. Had aneuploidy screening marginal cord insertion from her report. Requested records, waiting for those NSTs weekly offered birthing classes plans breastfeedig repeat US for growth in 2 weeks GBS today Follow up in 4 weeks or sooner prn. Paul Quezada MD NST SUMMARY PROVIDER ASSESSMENT AND INTERPRETATION Lana Salguero is a 31 year old female, , who is at 36w1d with an SUDEEP of 01/10/2022, by Patient Reported dating method. Indications for NST: Other: marginal cord insertion Baseline: 120 Variability: Moderate Accelerations: Present 15 X 15 Decelerations: None Contractions: TOCO: None Interpretation: Category I and Reactive SIGNATURE: Paul Quezada MD documented in this encounterAdams [facility]08-[facility]-2022 Instructions* Patient Instructions* Taya Claudia Ma - 12/14/2021 1:11 PM EDT Please select the following link to access the [facility] Your Guide to a Healthy . [email or web address] documented in this encounterAdams County [facility]08-04-2022 Miscellaneous Notes* Quick Notes - Talita Quiros RN - 12/14/2021 9:49 AM EDT DISTANCE HEALTH VISIT This Team Access Model visit is a phone encounter. It required patient-provider interaction for themedical decision making as documented below. Father of the baby involved. Patient is transferring care from [facility]. She is having a difficult time getting her medical records. She states that she did sign a release form on December 05 from [facility] [employer]. I called and spoke with Albertina at . I have asked her to fax medical records to us today. Patient states that there has been some umbilical cord insertion issues this . She states the baby has been small for gestational age and she did see maternal- medicine. I have given patient information on childbirth education classes at [facility] Patient quit vaping March 2021 when she found out she was .TKRN documented in this encounterAdams County [facility]08-04-[facility]22 History of Present illness Narrative* Talita Quiros RN - 12/14/2021 9:48 AM EDT # 1 - Date: 2010, Sex: None, Weight: None, GA: 7w0d, Delivery: None, Apgar1: None, Apgar5: None, Living: None, Comments: No D&C # 2 - Date: None, Sex: None, Weight: None, GA: None, Delivery: None, Apgar1: None, Apgar5: None, Living: None, Comments: None [facility] Diagnosis with care elsewhere, antepartum- Primary documented in this encounter [facility]* Diagnosis with care elsewhere, antepartum- Primary 36 weeks gestation of state, incidental Supervision of high risk in third trimester Unspecified high-risk Marginal insertion of umbilical cord affecting management of mother in third trimester documented in this encounter [facility]* Diagnosis with care elsewhere, antepartum- Primary 36 weeks gestation of state, incidental documented in this encounter [facility]* Diagnosis Supervision of high risk in third trimester- Primary Unspecified high-risk Marginal insertion of umbilical cord affecting management of mother in third trimester documented in this encounter [facility]* Diagnosis with care elsewhere, antepartum- Primary Supervision of high risk in third trimester Unspecified high-risk 38 weeks gestation of state, incidental documented in this encounter [facility]* Diagnosis Intrauterine growth restriction (IUGR) affecting care of mother, third trimester, single gestation- Primary documented in this encounter [facility]* Diagnosis Onset Date Resolution Status 38 weeks gestation of acute Bilobed placenta acute Encounter for induction of labor acute IUGR (intrauterine growth restriction) acute Maternal exhaustion complicating labor and delivery acute Second degree perineal laceration acute Vacuum-assisted vaginal delivery acute Velamentous insertion of umbilical cord acute [facility] Work Phone: Evaluation note* Diagnosis exam- Primary Routine follow-up documented in this encounter [facility]* Diagnosis care and examination- Primary Routine follow-up documented in this encounter [facility]* Diagnosis Granulation tissue at obstetrical laceration site- Primary Other abnormal granulation tissue documented in this encounter [facility]* Diagnosis Vaginal pain- Primary Unspecified symptom associated with female genital organs Granulation tissue at obstetrical laceration site Other abnormal granulation tissue documented in this encounter [facility]* Diagnosis Granulation tissue at obstetrical laceration site- Primary Other abnormal granulation tissue documented in this encounter [facility]* Diagnosis Granulation tissue at obstetrical laceration site- Primary Other abnormal granulation tissue documented in this encounter [facility]* Diagnosis Encounter for gynecological examination (general) (routine) without abnormal findings- Primary Screening for cervical cancer Screening for malignant neoplasm of the cervix Encounter for screening for human papillomavirus (HPV) Special screening examination for human papillomavirus (HPV) Decreased libido documented in this encounter [facility]* Diagnosis Encounter for supervision of high risk in first trimester, antepartum- Primary 4 weeks gestation of state, incidental with uncertain dates in first trimester History of intrauterine growth restriction in prior , currently with other poor obstetric history History of depression History of placental abnormality Other specified conditions influencing health status Rh negative state in antepartum period Rhesus isoimmunization affecting management of mother, antepartum condition History of environmental allergies Other allergy, other than to medicinal agents Nausea and vomiting during History of miscarriage Personal history of other genital system and obstetric disorders Vulvar lesion Other specified noninflammatory disorder of vulva and perineum documented in this encounter [facility] note* Diagnosis with uncertain dates, antepartum- Primary state, incidental Bleeding in early Unspecified hemorrhage in early , unspecified as to episode of care documented in this encounter [facility] note* Diagnosis with uncertain viability, single or unspecified fetus- Primary Encounter for supervision of high risk in first trimester, antepartum 4 weeks gestation of state, incidental documented in this encounter [facility] note* Diagnosis Incomplete spontaneous without complication- Primary Incomplete spontaneous without mention of complication documented in this encounter [facility] for referral (narrative)* Outpatient Procedure (Routine) - Authorized Specialty Diagnoses / Procedures Referred By Carlos hollis Referred To Contact [facility] Diagnoses with care elsewhere, antepartum 36 weeks gestation of Supervision of high risk in third trimester Marginal insertion of umbilical cord affecting management of mother in third trimester Procedures NON-STRESS TEST NON-STRESS TEST Paul Quezada MD [address] [place] [address] [address] Referral ID Status Reason Start Date Expiration Date Visits Requested Visits Authorized [id number] Authorized Auto-Generat ed Referral 12/14/2021 12/14/2022 5 1 * Diagnostic Procedure Only (Routine) - Authorized Specialty Diagnoses / Procedures Referred By Contac t Referred To Contact [facility] Diagnoses with care elsewhere, antepartum 36 weeks gestation of Supervision of high risk in third trimester Procedures OBSTETRIC ULTRASOUND WHI US PREG UTERUS AFTER 1ST TRIMEST GESTATION Paul Quezada MD [address] [place] [address] [address] Referral ID Status Reason Start Date Expiration Date Visits Requested Visits Authorized [id number] Authorized Auto-Generat ed Referral 12/14/2021 12/14/2022 1 1 T [facility] for referral (narrative)* Diagnostic Procedure Only (Routine) - Pending Review Specialty Diagnoses / Procedures Referred By Contac t Referred To Contact [facility] Diagnoses Supervision of high risk in third trimester Marginal insertion of umbilical cord affecting management of mother in third trimester Procedures BIOPHYSICAL PROFILE US WHI BIOPHYSICAL PROFILE NON-STRESS TESTING Pamela Barrios APRN.CNM [address] [place] [address] [facility] [email or web address] [place] [address] Referral ID Status Reason Start Date Expiration Date Visits Requested Visits Authorized [id number] Pending Review Auto-Generat ed Referral 12/28/2021 12/28/2022 1 1 T [facility] for referral (narrative)* Diagnostic Procedure Only (Routine) - Authorized Specialty Diagnoses / Procedures Referred By Contac t Referred To Contact [facility] Diagnoses Encounter for supervision of high risk in first trimester, antepartum 4 weeks gestation of with uncertain dates in first trimester Procedures PELVIC US WHI US PELVIC NONOBSTETRIC REAL-TIME IMAGE COMPLETE Luis Noel APRN.CASING WRINGER OPERATOR [address] [place] [address] [address] Referral ID Status Reason Start Date Expiration Date Visits Requested Visits Authorized [id number] Authorized Auto-Generat ed Referral 4 04/06/2025 1 1 * Diagnostic Procedure Only (Routine) - Authorized Specialty Diagnoses / Procedures Referred By Contac t Referred To Contact [facility] Diagnoses Encounter for supervision of high risk in first trimester, antepartum with uncertain dates in first trimester History of intrauterine growth restriction in prior , currently History of depression Procedures NUCHAL TRANSLUCENCY WHI US NUCHAL TRANSLUCENCY 1ST GESTATION Luis Noel APRN.CNP [address] [place] [address] [address] Referral ID Status Reason Start Date Expiration Date Visits Requested Visits Authorized [id number] Authorized Auto-Generat ed Referral 4 04/06/2025 1 1 [facility] ([facility])* Diagnostic Procedure Only (Routine) - New Request Specialty Diagnoses / Procedures Referred By Contac t Referred To Contact [facility] Diagnoses with uncertain dates, antepartum Bleeding in early Procedures PELVIC US WHI US PELVIC NONOBSTETRIC REAL-TIME IMAGE COMPLETE Luis Noel APRN.CNP [address] [place] [address] [address] Referral ID Status Reason Start Date Expiration Date Visits Requested Visits Authorized [id number] New Request Auto-Generat ed Referral 04/16/2024 04/16/2025 1 1 [facility] Narrative* Diagnostic Procedure Only (Routine) - Closed Specialty Diagnoses / Procedures Referred By Contac t Referred To Contact [facility] Diagnoses Encounter for supervision of high risk in first trimester, antepartum 4 weeks gestation of with uncertain dates in first trimester Procedures PELVIC US WHI US PELVIC NONOBSTETRIC REAL-TIME IMAGE COMPLETE Luis Noel APRN.CASING WRINGER OPERATOR [address] [place] [address] [facility] [address] [place] [address] Referral ID Status Reason Start Date Expiration Date V isits Requested Visits Authorized [id number] Closed Auto-Generate d Referral 04/06/2024 04/06/2025 1 1 [facility] Health Concerns Problem Noted Date OB Reminders 12/14/2021 Problem Noted Date OB Reminders 12/14/2021 Problem Noted Date OB Reminders 12/14/2021 Problem Noted Date OB Reminders 12/14/2021 Problem Noted Date OB Reminders 12/14/2021 Problem Noted Date OB Reminders 12/14/2021 Problem Noted Date OB Reminders 12/14/2021 Problem Noted Date OB Reminders 12/14/2021 Problem Noted Date OB Reminders 12/14/2021 Problem Noted Date OB Reminders 12/14/2021 Problem Noted Date OB Reminders 12/14/2021 Problem Noted Date OB Reminders 12/14/2021 Problem Noted Date OB Reminders 12/14/2021 Problem Noted Date OB Reminders 12/14/2021 Problem Noted Date OB Reminders 12/14/2021 Chief Complaint and Reason for Visit Chief Complaint VAGINAL DELIVERY Reason for Visit 38 weeks gestation o f Bilobed placenta Encounter for induction of labor IUGR (intrauterine growth restriction) Maternal exhaustion complicating labor and delivery Second degree perineal laceration Vacuum-assisted vaginal delivery Velamentous insertion of umbilical cord Advance Directives No Advanced Directives Records Found Advance Directive Response Recorded Date/ Time Living Will No January 01 8:27pm Power of Manager Of Planning No January 01 022 8:27pm Reason for Referral Specialty Diagnoses / Procedures Referred By Carlos hollis Referred To Contact Diagnoses Granulation tissue at obstetrical laceration site Procedures CONSULT TO CARE CLINIC OFFICE/OUTPATIENT [facility] MDM 60-74 MINUTES Paul Quezada MD [address] [place] [address] Referral ID Status Reason Start Date Expiration Date Visits Requested Visits Authorized [id number] Authorized PCP Requested Referral Auto-Generate d Referral 2 04/26/2023 1 1 Summary Purpose Family History No Family History Records FoundNo Family History Records FoundNo Family History Records Found Additional Source Comments Source Comments (unrecognize d section and content) In the event this informatio n is protected by the Federal Confidentiality of Alcohol and Drug Abuse Patient Records regulations: The Federal rules restrict any use of the information to criminally investigate or prosecute any alcohol or drug abuse patient.[facility] Center[facility] the event this information is protected by the Federal Confidentiality of Alcohol and Drug Abuse Patient Records regulations: The Federal rules restrict any use of the information to criminally investigate or prosecute any alcohol or drug abuse patient.[facility] CenterIn the event this information is protected by the Federal Confidentiality of Alcohol and Drug Abuse Patient Records regulations: The Federal rules restrict any use of the information to criminally investigate or prosecute any alcohol or drug abuse patient.[facility] CenterIn the event this information is protected by the Federal Confidentiality of Alcohol and Drug Abuse Patient Records regulations: The Federal rules restrict any use of the information to criminally investigate or prosecute any alcohol or drug abuse patient.[facility] CenterIn the event this information is protected by the Federal Confidentiality of Alcohol and Drug Abuse Patient Records regulations: The Federal rules restrict any use of the information to criminally investigate or prosecute any alcohol or drug abuse patient.[facility] CenterIn the event this information is protected by the Federal Confidentiality of Alcohol and Drug Abuse Patient Records regulations: The Federal rules restrict any use of the information to criminally investigate or prosecute any alcohol or drug abuse patient.[facility] CenterIn the event this information is protected by the Federal Confidentiality of Alcohol and Drug Abuse Patient Records regulations: The Federal rules restrict any use of the information to criminally investigate or prosecute any alcohol or drug abuse patient.[facility] CenterIn the event this information is protected by the Federal Confidentiality of Alcohol and Drug Abuse Patient Records regulations: The Federal rules restrict any use of the information to criminally investigate or prosecute any alcohol or drug abuse patient.[facility] CenterIn the event this information is protected by the Federal Confidentiality of Alcohol and Drug Abuse Patient Records regulations: The Federal rules restrict any use of the information to criminally investigate or prosecute any alcohol or drug abuse patient.[facility] CenterIn the event this information is protected by the Federal Confidentiality of Alcohol and Drug Abuse Patient Records regulations: The Federal rules restrict any use of the information to criminally investigate or prosecute any alcohol or drug abuse patient.[facility] CenterIn the event this information is protected by the Federal Confidentiality of Alcohol and Drug Abuse Patient Records regulations: The Federal rules restrict any use of the information to criminally investigate or prosecute any alcohol or drug abuse patient.[facility] CenterIn the event this information is protected by the Federal Confidentiality of Alcohol and Drug Abuse Patient Records regulations: The Federal rules restrict any use of the information to criminally investigate or prosecute any alcohol or drug abuse patient.[facility] CenterIn the event this information is protected by the Federal Confidentiality of Alcohol and Drug Abuse Patient Records regulations: The Federal rules restrict any use of the information to criminally investigate or prosecute any alcohol or drug abuse patient.[facility] CenterIn the event this information is protected by the Federal Confidentiality of Alcohol and Drug Abuse Patient Records regulations: The Federal rules restrict any use of the information to criminally investigate or prosecute any alcohol or drug abuse patient.[facility] CenterIn the event this information is protected by the Federal Confidentiality of Alcohol and Drug Abuse Patient Records regulations: The Federal rules restrict any use of the information to criminally investigate or prosecute any alcohol or drug abuse patient.[facility] CenterIn the event this information is protected by the Federal Confidentiality of Alcohol and Drug Abuse Patient Records regulations: The Federal rules restrict any use of the information to criminally investigate or prosecute any alcohol or drug abuse patient.[facility] CenterIn the event this information is protected by the Federal Confidentiality of Alcohol and Drug Abuse Patient Records regulations: The Federal rules restrict any use of the information to criminally investigate or prosecute any alcohol or drug abuse patient.[facility] CenterIn the event this information is protected by the Federal Confidentiality of Alcohol and Drug Abuse Patient Records regulations: The Federal rules restrict any use of the information to criminally investigate or prosecute any alcohol or drug abuse patient.[facility] CenterIn the event this information is protected by the Federal Confidentiality of Alcohol and Drug Abuse Patient Records regulations: The Federal rules restrict any use of the information to criminally investigate or prosecute any alcohol or drug abuse patient.[facility] [facility] Center[facility] the event this information is protected by the Federal Confidentiality of Alcohol and Drug Abuse Patient Records regulations: The Federal rules restrict any use of the information to criminally investigate or prosecute any alcohol or drug abuse patient.[facility] the event this information is protected by the Federal Confidentiality of Alcohol and Drug Abuse Patient Records regulations: The Federal rules restrict any use of the information to criminally investigate or prosecute any alcohol or drug abuse patient.[facility] the event this information is protected by the Federal Confidentiality of Alcohol and Drug Abuse Patient Records regulations: The Federal rules restrict any use of the information to criminally investigate or prosecute any alcohol or drug abuse patient.[facility] Center[facility] the event this information is protected by the Federal Confidentiality of Alcohol and Drug Abuse Patient Records regulations: The Federal rules restrict any use of the information to criminally investigate or prosecute any alcohol or drug abuse patient.[facility] Center[facility] the event this information is protected by the Federal Confidentiality of Alcohol and Drug Abuse Patient Records regulations: The Federal rules restrict any use of the information to criminally investigate or prosecute any alcohol or drug abuse patient.[facility] Center[facility] the event this information is protected by the Federal Confidentiality of Alcohol and Drug Abuse Patient Records regulations: The Federal rules restrict any use of the information to criminally investigate or prosecute any alcohol or drug abuse patient.[facility] CenterIn the event this information is protected by the Federal Confidentiality of Alcohol and Drug Abuse Patient Records regulations: The Federal rules restrict any use of the information to criminally investigate or prosecute any alcohol or drug abuse patient.[facility] CenterIn the event this information is protected by the Federal Confidentiality of Alcohol and Drug Abuse Patient Records regulations: The Federal rules restrict any use of the information to criminally investigate or prosecute any alcohol or drug abuse patient.[facility] CenterIn the event this information is protected by the Federal Confidentiality of Alcohol and Drug Abuse Patient Records regulations: The Federal rules restrict any use of the information to criminally investigate or prosecute any alcohol or drug abuse patient.[facility] CenterIn the event this information is protected by the Federal Confidentiality of Alcohol and Drug Abuse Patient Records regulations: The Federal rules restrict any use of the information to criminally investigate or prosecute any alcohol or drug abuse patient.[facility] CenterIn the event this information is protected by the Federal Confidentiality of Alcohol and Drug Abuse Patient Records regulations: The Federal rules restrict any use of the information to criminally investigate or prosecute any alcohol or drug abuse patient.[facility] CenterIn the event this information is protected by the Federal Confidentiality of Alcohol and Drug Abuse Patient Records regulations: The Federal rules restrict any use of the information to criminally investigate or prosecute any alcohol or drug abuse patient.[facility] Reason for Visit (unrecogniz ed section and content) Reason Comments US Specialty Diagnoses / Procedures Referred By Carlos t Referred To Contact Radiology / MEAT GRADER Diagnoses Other malformation of placenta, third trimester BPP Procedures NON-STRESS TEST BIOPHYSICAL PROFILE MD Karl Development Engineer [employer] [address] [place] [address] Referral ID Status Reason Start Date Expiration Date Visits Re quested Visits Authorized [id number] Closed 12/28/2021 05/12/2022 2 2 Reason Comments Care Reason Comments Initial OB Visit transfer of care Reason Comments PRAF FORM Specialty Diagnoses / Procedures Referred By Carlos hollis Referred To Contact [facility] Diagnoses with care elsewhere, antepartum 36 weeks gestation of Supervision of high risk in third trimester Procedures OBSTETRIC ULTRASOUND WHI US PREG UTERUS AFTER 1ST TRIMEST GESTATION Paul Quezada MD [address] [place] [address] [facility] [address] [place] [address] Referral ID Status Reason Start Date Expiration Date V isits Requested Visits Authorized [id number] Closed Auto-Generate d Referral 12/14/2021 12/14/2022 1 1 Reason Comments Request Outside Medical Records Reason Comments Orders Reason Onset Date Comments Care 12/28/2021 Reason Comments Ob Delivery Note Reason Comments Early Reason Comments Early Patient Question Reason Comments Routine Reason Comments Follow Up Reason Comments Follow Up Discuss scar revisio n Reason Comments Post Op Reason Comments Care Coordination Reason Comments PPCC Consult with Ant Stewart Reason Comments Yearly Exam Reason Comments Appointment Reason Comments Initial OB Visit Reason Comments PRAF Reason Comments Patient Question Reason Comments Results INFORMATION SOURCE (unrecogn ized section and content) DATE CREATED AUTHOR 05/11/2022 [facility] DATE CREATED AUTHOR AUTHOR'S ORGANIZ ATION 07/13/2022 [facility] DATE CREATED AUTHOR AUTHOR'S ORGANIZ ATION 03/22/2025 [facility] FOR RECORDS PERTAINING TO PATIENTS WHO ARE OR HAVE BEEN ENROLLED IN A CHEMICAL DEPENDENCY/SUBSTANCEABUSE PROGRAM, SOME INFORMATION MAY BE OMITTED. This clinical summary was aggregated from multiple sources. Caution should be exercised in using it in the provision of clinical care. This summary normalizes information from multiple sources, and as a consequence, information in this document may materially change the coding, format and clinical context of patient data. In addition, data may be omitted in some cases. CLINICAL DECISIONS SHOULD BE BASED ON THE PRIMARY CLINICAL RECORDS. [facility] [facility] provides no warranty or guarantee of the accuracy or completeness of information in this document.
[2025-03-27 20:33] LABS: Color, Urine Yellow (Yellow); Glucose, Dipstick Normal (Normal); Ketone-Dipstick Negative (Negative); Leukocyte Esterase-Dipstick Negative /ul (Negative); Nitrite-Dipstick Negative (Negative); Occult Blood-Urine 250 /ul (Negative); Protein-Dipstick Negative (Negative); Specific Gravity, Urine 1.005 (1.002-1.030); Urine Bilirubin Dipstick Negative (Negative)
[2025-03-27 20:36] LABS: Anion Gap 9 (5-15); BUN 15 mg/dL (4-19); BUN/Creat Ratio 22.6 RATIO (10-20); Calcium,Total 9.0 mg/dL (7.6-11.0); Carbon Dioxide 24.2 mmol/L (21.0-32.0); Chloride 104 mmol/L (98-108); Estimated Creatinine Clearance 100.88 ml/min (50-250); Glucose 99 mg/dL (70-99); Potassium 3.8 mmol/L (3.3-5.1)
[2025-03-27 20:43] LABS: hCG Titer Quant., Serum 5894 mIU/mL (<9 non-preg)
[2025-03-27 21:38] VITALS: BP 100/64; PULSE 66; RESP 16; O2SAT 100
--- NOTE | 2025-03-27 22:17 | EDS_ITS ---
HPI HPI - Female History of Present Illness Chief Complaint: Vag Bld, Preg Narrative Narrative: Patient is a 35-year-old female presenting to the emergency department for vaginal bleeding that started 3 days ago. Patient is G4, P1, 2 miscarriages. She states that she is 11 weeks . She had her 8-week ultrasound that identified an IUP. She follows with [facility]. Patient states initially it was brown-colored spotting. She states that today she developed some lower abdominal pressure and had an episode of bright red vaginal bleeding. She states since then she has had light spotting that has been bright red. Reports that she is not wearing a pad or tampon for the bleeding. No recent sexual intercourse. She denies any fever or chills. Denies any nausea or vomiting. She is blood type O-. [facility] Medical History HPV (human papilloma virus) infection Placental abnormality Home Medications ?Medication ?Instructions ?Recorded ?Last Taken ?Type uxixucil-iyl-Jh-FA 1 mg 1 tab PO DAILY pregna ncy 01/01/22 01/01/22 07:00 History tablet acetaminophen 500 mg tablet 1,000 mg (2 x 500 mg) PO Q 6H PRN 01/04/22 Unknown Rx PRN Pain 1-10 Or Fever #0 tabs ibuprofen 600 mg tablet 600 mg PO Q6H PRN PRN Pain S core 01/04/22 Unknown Rx 1-3 #0 tabs Allergy/AdvReac Type Severity Reaction Status Date / Time No Known Allergies Allergy Verified 03/27/25 19:39 Surgical History History of surgery Social History Smoking Status: Former smoker ROS ROS ED ROS Narrative see HPI EXAM Physical Exam Narrative Exam Narrative: Vital signs: Reviewed General: Alert and orientedx3. No acute distress HEENT: Head is normocephalic and atraumatic, sinuses nontender, pupils equal round and reactive. Nares are patent. Oropharynx and throat exams normal. Neck: Supple without lymphadenopathy nontender Cardiovascular: Regular rate and rhythm, no murmurs. No rubs or gallops. Normal S1 and S2 Respiratory: Clear to auscultation bilaterally. No wheezes, rales, rhonchi Abdominal: Soft and nontender. Normal bowel sounds. No guarding or rebound. Nonsurgical abdomen : Done with insurance clerk RN at bedside. Normal external female genitalia. Scant amount of bright red blood in the vaginal vault. Cervix is closed with active oozing. Nonfriable cervix. Extremities: No tenderness. No bruising. Normal range of motion. Normal sensation. Skin: No rash or redness. The rest of the physical exam is unremarkable Const Vital Signs: 03/27/25 19:38 03/27/25 21:38 03/27/25 23:00 Temperature 98.3 F Temperature Source Oral Pulse Rate 64 66 67 Respiratory Rate 14 16 16 Blood Pressure 111/77 100/64 Blood Pressure Mean 88 76 Pulse Ox 100 100 100 Oxygen Delivery Method Room Air Room Air Room Air 03/28/25 00:17 Temperature 98.3 F Temperature Source Pulse Rate 67 Respiratory Rate 16 Blood Pressure 100/64 Blood Pressure Mean 76 Pulse Ox 100 Oxygen Delivery Method MDM MDM MDM Narrative Medical decision making narrative: Patient is a 35-year-old female presenting to the emergency department for vaginal bleeding. Patient was seen and examined. Vitals are stable. Patient resting in bed comfortably in no acute distress. Pelvic exam was completed with RN insurance clerk at bedside. Cervix is closed. There is a scant amount of blood in the vaginal vault. Active oozing from the cervix. CBC with stable hemoglobin at 11.2, prior was done in 2021 and was 11.5. BMP with no significant abnormalities. Urinalysis with no evidence of UTI. HCG appropriately rising. Transvaginal US ordered. About 4 hours after the ultrasound was completed, the patient asked to leave. The ultrasound results were not read by radiologist yet. I recommended that she wait for her ultrasound to be read. I explained without the ultrasound she will need to sign out AGAINST MEDICAL ADVICE. I explained that if I am still here and the results come back I will call her and if not she needs to call her WELT ROUGHER tomorrow morning to review the results with her. Either way the patient does need to follow-up with WELT ROUGHER tomorrow. I recommended that she call in the morning. I explained to her that I am concerned about a threatened given the active bleeding with a closed cervix. She understands the risk of leaving AGAINST MEDICAL ADVICE and has capacity. She signed AMA paperwork. Clinical impression: Vaginal bleeding during early History & Record Review Discussion w/independent historian: Patient Additional record(s) reviewed:: Prior labs Lab Data Attestation: I reviewed the patient's lab results. Labs: Laboratory Results - last 24 hr 03/27/25 03/27/25 19:50 20:09 WBC 8.9 RBC 3.65 L Hgb 11.2 L Hct 33.8 L MCV 92.6 MCH 30.7 MCHC 33.1 RDW Std Deviation 42.5 RDW Coeff of Ernie 12.4 Plt Count 259 MPV 10.1 Immature Gran % (Auto) 0.200 Neut % (Auto) 59.1 Lymph % (Auto) 27.7 [place] % (Auto) 8.2 Eos % (Auto) 4.2 Baso % (Auto) 0.6 Absolute Neuts (auto) 5.3 Absolute Lymphs (auto) 2.47 Nucleated RBC % 0 Sodium 137 Potassium 3.8 Chloride 104 Carbon Dioxide 24.2 Anion Gap 9 BUN 15 Creatinine 0.65 L Estim Creat Clear Calc 100.88 Est GFR (MDRD) Non-Af 118 BUN/Creatinine Ratio 22.6 H Glucose 99 Calcium 9.0 HCG, Quant 5894 H Urine Color Yellow Urine Clarity Clear Urine pH 7.0 Ur Specific Sunshine 1.005 Urine Protein Negative Urine Glucose (UA) Normal Urine Ketones Negative Urine Occult Blood 250 H Urine Nitrite Negative Urine Bilirubin Negative Urine Urobilinogen Normal Ur Leukocyte Esterase Negative Urine RBC 5-10 SEEN Urine WBC 0-5 SEEN Ur Squamous Epith Cells 0-5 SEEN Urine Bacteria 0 SEEN Urine Mucus 0 SEEN Discharge Plan Triage Chief Complaint: Vag Bld, Preg ED Provider: Rosalie Tinajero Dx/Rx/DC Orders Clinical Impression: Vaginal bleeding affecting early Instructions: Bleeding During Early Prescriptions: No Action surzzazy-yvi-On-FA 1 mg Tablet 1 tab PO DAILY acetaminophen 500 mg Tablet 1,000 mg PO Q6H PRN PRN (Reason: Pain 1-10 Or Fever) Qty: 0 0RF ibuprofen 600 mg Tablet 600 mg PO Q6H PRN PRN (Reason: Pain Score 1-3) Qty: 0 0RF Primary Care Provider: Care Physician,No Primary Referrals: Pamela Barrios CNM [Med Staff - Adv Practice Prof, Obstetrics] - As soon as possible Care Physician,No Primary [Primary Care Provider, Medical] Activity Restrictions/Additional Instructions: Call your OBGYN tomorrow morning. You left before the ultrasound was read by radiology. Your hemoglobin was stable. Recommend that you call your WELT ROUGHER tomorrow morning return to the emergency department with any new or worsening symptoms as discussed. Print Language: Chinese Disposition Disposition: Home, Self Care
[2025-03-27 22:41] LABS: Red Blood Cells-Urine 5-10 SEEN /hpf (0-5); Squamous Epithelial Cells - UA 0-5 SEEN /hpf (5-10)
[2025-03-27 23:00] VITALS: PULSE 67; RESP 16; O2SAT 100
[2025-03-28 00:17] VITALS: BP 100/64; PULSE 67; RESP 16; TEMP 36.8; O2SAT 100
== END 2025-03-28 00:28 | disposition home or self-care (01) ==
PROVIDERS: Emergency Provider Student in an Organized Health Care Education/Training Program; Visit Provider Student in an Organized Health Care Education/Training Program
DX: O20.9 Hemorrhage in early pregnancy, unspecified (principal); Z3A.11 11 weeks gestation of pregnancy; Z87.891 Personal history of nicotine dependence
CPT/HCPCS: 76817; 80048; 81001; 84702; 85025; 99283; A4216

== ENCOUNTER 2025-04-01 12:22 | Day surgery (SDC) | payer MEDICAID, SELFPAY ==
--- NOTE | 2025-03-31 16:14 | PCM.HP.BLA ---
History and Physical Date of Admission: 04/01/25 HPI: The patient is a 35 year old female presenting for pre-operative visit. She is scheduled for scution D&C, for 9w size missed ab w/ EGA of 12 weeks by LMP on 04/01/25. Procedure discussed along with risks, benefits and complications. Other alternatives discussed for management. Consent form signed? Yes. ? ? Past Medical History PAST MEDICAL HISTORYDiagnosisDate?Abnormal Pap smear of cervix??2017 and 2019 HPV 2021, ?COVID05/06/2021?History of intrauterine growth restriction in prior , currently ([facility])04/06/2024?History of placental navucvspfoj78/25/2024?History of xfqyscowze23/25/2024?Pap smear abnormality of cervix/human papillomavirus (HPV) positive??Seasonal allergies? ? ? PAST SURGICAL HISTORY PAST SURGICAL HISTORYProcedureLateralityDate?PAST SURGICAL HISTORY OF???wisdom teeth?VAGINOSCOPY? CURRENT MEDICATIONS Current Outpatient MedicationsMedicationSigDispenseRefill? vit/iron fum/folic ac ( 1 + 1 ORAL)?No current facility-administered medications for this visit. ? ? ALLERGIES: Patient has no known allergies. ? PERSONAL HISTORY: [Social History] [Social History] Tobacco Use ? Smoking status: Former ? ? Current packs/day: 0.00 ? ? Types: Cigarettes ? ? Start date: 05/13/2008 ? ? Quit date: 2019 ? ? Years since quittin.8 ? Smokeless tobacco: Never Vaping Use ? Vaping status: Former ? Quit date: 03/16/2021 Substance Use Topics ? Alcohol use: Not Currently ? Drug use: No ? FAMILY HISTORY: Family History FAMILY HISTORY ProblemRelationAge of Onset?NarcolepsyMother??HypertensionMother??ThyroidMother??DepressionFather??Suicide / Suicidal BehaviorsFather??Alcohol/DrugFather??No Known ProblemsSister??No Known ProblemsSister??AsthmaBrother??No Known ProblemsMaternal Grandmother??No Known ProblemsMaternal Grandfather??StrokePaternal Grandmother??HeartPaternal Grandfather??Colon CancerPaternal Grandfather??DiabetesPaternal Grandfather??DiabetesPaternal Uncle??No Known ProblemsDaughter? ? ? REVIEW OF SYMPTOMS: GENERAL: denies fevers or chills ENDOCRINOLOGY: has not been on steroids Cardiology : denies palpitations or chest pain Respiratory: denies SOB or cough Hematology: denies history of prolonged bleeding or easy bruising or VTE Allergy: Denies history of personal or family history of allergy to anesthesia ? PHYSICAL EXAMINATION: ? VITALS: Last menstrual period 01/02/2025. ? GENERAL: The patient is well nourished, well hydrated in no acute distress. , The patient is oriented to time, place, and person. ? IMPRESSION: 9 week size missed ab ? PLAN: The risks/benefits/alternatives and personal involved for the planned hysteroscopy D&C were reviewed with the patient. Her questions were answered to her satisfaction and she desires to proceed. Consent was signed. I reviewed with her postop instructions and expectations. Desires genetic testing on POCS ? I have reviewed and updated past medical and surgical history, medications and allergies Assessment & Plan Assessment/Plan (1) Missed :
[2025-04-01] VITALS (9 sets, daily range): BP systolic 90–112; BP diastolic 66–80; PULSE 65–87; RESP 16–18; TEMP 36.2–36.6; O2SAT 99–100; BMI 21.3
--- NOTE | 2025-04-01 12:56 | PCM.PRE.AN2 ---
ASA Classification* ASA Classification ASA Classification: 2 Assessment & Plan Anesthesia* Anesthesia Assessment Anesthesia Assessment: Discussed sedation and/or anesthesia options, risks, benefits, and alternatives with patient/parents/legal guardian/POA. Questions invited. The patient/parents/legal guardian/POA seems to understand and agrees to proceed with anesthesia plan. Reviewed the physical assessment, medical history, allergy history and patient home medications list prior to surgery/procedure/anesthetic and documented any changes. Performed airway and anesthesia risk assessments. Anesthesia Type Anesthesia Type: MAC Anesthesia Focused Assessment* Temperature: 97.8 F Pulse Rate: 71 Blood Pressure: 98/68 Respiratory Rate: 16 Pulse Ox: 100 Airway Assessment Mouth opens: >3 cm Mallampati Score: II Labs Anesthesia Preop lab: CBC WBC, (4.4-11.0) 8.9 K/mm3 03/27/25, 20:09 RBC, (4.2-5.4) 3.65 M/mm3 L 03/27/25, 20:09 Hgb, (12.0-15.0) 11.2 g/dL L 03/27/25, 20:09 Hct, (37-47) 33.8 % L 03/27/25, 20:09 Plt Count, (150-450) 259 K/mm3 03/27/25, 20:09 CHEMISTRY Potassium, (3.3-5.1) 3.8 mmol/L 03/27/25, 20:09 Sodium, (133-145) 137 mmol/L 03/27/25, 20:09 BUN, (4-19) 15 mg/dL 03/27/25, 20:09 Creatinine, (0.70-1.20) 0.65 mg/dL L 03/27/25, 20:09 Glucose, (70-99) 99 mg/dL 03/27/25, 20:09 COAG HCG, Quant, (<9 non-preg) 5894 mIU/mL H 03/27/25, 20:09 Pre-Assessment Diagnosis/Proposed Procedure Planned Operative Procedure(s): SUCTION D&C Anesthesia History 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 When Was Last Pacemaker Check QUESTION #4 FULL TEXT: You/Your Family Experience fever (hyperthermia) with Anesthesia Last Oral Intake Last Oral intake: Last Oral Intake NPO since 18:30 04/01/25 12:47 Meds taken in AM with sips of No 04/01/25 12:47 water? 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 Female Yes 03/31/25 15:14 HX of Motion Sickness No 03/31/25 15:14 HX of N/V After Surgery No 03/31/25 15:14 Non-Smoker Yes 03/31/25 15:14 Duration of Surgery greater No 03/31/25 15:14 than 60 minutes Number of Risk Factors 2 03/31/25 15:14 PONV Score Moderate Risk 03/31/25 15:14 Height & Weight Height & Weight: Anesthesia: Height & Weight Height 5 ft 3 in 04/01/25 12:47 Weight: 54.7 kg 04/01/25 12:47 Body Mass Index (BMI) 21.3 04/01/25 12:47 Respiratory Assessment Respiratory Assessment - tank shop supervisor: Respiratory Tract Infection Hx - tank shop supervisor Hx Respiratory Tract Infection No 03/31/25 15:14 STOP Sleep Apnea STOP Sleep Apnea - tank shop supervisor: STOP Sleep Apnea - tank shop supervisor Hx Hypertension No 03/31/25 15:14 Hx Sleep Apnea No 03/31/25 15:14 CPAP BIPAP Do you snore loudly (louder No 03/31/25 15:14 than talking or can be heard Do you often feel tired/ No 03/31/25 15:14 fatigued/ sleepy during daytime? Has anyone observed you stop No 03/31/25 15:14 breathing during sleep? STOP Results Negative 03/31/25 15:14 QUESTION #5 FULL TEXT : Do you snore loudly (louder than talking or can be heard through closed doors)? 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 Specify any problems Hx of Preganancy in last 3 Yes 03/31/25 15:14 Months Nurse Filling Out Transfusion DSCHRIBER 03/31/25 15:14 & Questions: Date: 03/31/25 03/31/25 15:14 Time: 15:15 03/31/25 15:14 Patient unable to answer at this time (ie. confused, unrespo /Reproduction History /Reproductive History - tank shop supervisor: /Reproductive Hx- tank shop supervisor Hx Now Yes 03/31/25 15:14 Gestational Age (in weeks): EDC: Hx Hx Para Hx Section SAB No 03/31/25 15:14 Does the father of the baby or No 03/31/25 15:14 his family experience fever w Father of the baby Malignant Hypertension history comment Active Medications Active Medications: Current Medications Generic Name Dose Route Start Last Admin Trade Name Freq PRN Reason Stop Dose Admin Lactated Ringer's 1,000 mls @ 15 mls/hr 04/01/25 12:45 IV .Q48H THEODORE PFSH Medical History Alcohol use Former smoker HPV (human papilloma virus) infection Placental abnormality Home Medications ?Medication ?Instructions ?Recorded ?Last Taken ?Type acetaminophen 500 mg tablet 1,000 mg (2 x 500 mg) PO Q6H PRN 01/04/22 Unknown Rx PRN Pain 1-10 Or Fever #0 tabs ibuprofen 600 mg tablet 600 mg PO Q6H PRN PRN Pain Score 01/04/22 Unknown Rx 1-3 #0 tabs Allergy/AdvReac Type Severity Reaction Status Date / Time No Known Allergies Allergy Verified 04/01/25 12:46 Surgical History History of surgery Social History Smoking Status: Former smoker Review of Systems (Anesthesia) ROS Narrative System reviewed and no additional complaints, except as documented.
[2025-04-01] MEDS: Lactated Ringers 1,000 ML 15 ML IV (13:03)
--- NOTE | 2025-04-01 14:00 | POC_PTH ---
PATIENT: LANA SALGUERO LOC[place] [facility] [place][id number] AGE/SX: 35/F ROOM: RE04/01/[address]: Dr. Silvia Marlow MD : 1990 BED: DIS: 04/01/2025 SPEC #: [id number] RECD: 04/01/25 14:56 STATUS: GARY REAjit #: [id number] JUAN: 04/01/25 14:[address]: Silvia Marlow DEPT: SURGICAL PATHOLOGY RECD BY: Jaswinder Messina ENTERED: 04/01/25 15:28 SP TYPE: PROD CONC OTHR DR: No Primary Care Phys Tissues: A - Product of conception, NOS Procedures: Surgery Specimen Level IV HEADER OPERATION: Dilation and curettage, suction PRE-OP DIAGNOSIS: Missed TISSUE SUBMITTED: A- Products of conception MICROSCOPIC DIAGNOSIS A. Uterine contents, dilation and suction curettage: * Acutely inflamed and focally necrotic decidua, immature placental villi, and parts, consistent with products of conception MICROSCOPIC DESCRIPTION Slides are reviewed. GROSS DESCRIPTION A. Received fresh labeled the patient's name and date of . Designated as products of conception is an 8.8 x 8.3 x 1.3 cm aggregate of freeman-pink to red tissue fragments. parts are identified. Tissue is collected and sent for Anora testing. [employer] Tube Bender sections are submitted in 3 cassettes, to include the parts in cassette A3. [place] 04/01/2025 CPT:[id number]
[2025-04-01] MEDS: Midazolam 2 MG/2 ML Syringe IV (14:17)
[2025-04-01] MEDS: Lidocaine 1% (5 ml sdv) 5 ML Vial 4 ML IV (14:18)
[2025-04-01] MEDS: Lactated Ringers 500 ML IV (14:18)
[2025-04-01] MEDS: Lidocaine 1%/Epi 1:200 (30ml) 30 ML AMPUL (14:47)
--- NOTE | 2025-04-01 14:58 | PCM.POST.ANE ---
Anesthesia: Postop Eval I Current Vital Signs Temperature: 97.7 F Pulse Rate: 74 Blood Pressure: 112/78 Respiratory Rate: 18 Pulse Ox: 100 Oxygen Delivery Method: Room Air Assessment Airway patent: Yes Spontaneous unlabored respirations: Yes Mental status: Awake and Calm nausea: No Vomiting: No Anesthesia Complication: No Fluid Hydration Crystalloid volume administer (ml): 500 Total IV fluid infused: 500 Progress Note Anesthesia document: Postop Eval 1 completed: Yes
--- NOTE | 2025-04-01 15:18 | POSTOPAN2_ITS ---
Anesthesia Postop Eval I Sum Postop Eval Completion status Anesthesia document: Postop Eval 1 completed: Yes Anesthesia Postop Eval I Summary Anesthesia Postop Eval I Summary: Anesthesia Postop Eval I: Assessment Summary Airway patent Yes 04/01/25 14:59 COMPUTER CUSTOMER SUPPORT SPECIALIST.SKOBY Spontaneous unlabored Yes 04/01/25 14:59 COMPUTER CUSTOMER SUPPORT SPECIALIST.VIELKA respirations Mental status Awake,Calm 04/01/25 14:59 COMPUTER CUSTOMER SUPPORT SPECIALIST.ABIMBOLAOBSunita nausea No 04/01/25 14:59 COMPUTER CUSTOMER SUPPORT SPECIALIST.ABIMBOLAOBSunita Vomiting No 04/01/25 14:59 COMPUTER CUSTOMER SUPPORT SPECIALIST.ABIMBOLAOBSunita Anesthesia Postop Eval I: Fluid Summary Crystalloid volume administer 500 04/01/25 14:59 COMPUTER CUSTOMER SUPPORT SPECIALIST.SKOBY (ml) Colloids volume administered ( ml) Blood Product volume administered (ml) Total IV fluid infused 500 04/01/25 14:59 COMPUTER CUSTOMER SUPPORT SPECIALIST.VIELKA Anesthesia Postop Eval I: Summary Notes Anesthesia Complication No 04/01/25 14:59 COMPUTER CUSTOMER SUPPORT SPECIALIST.VIELKA Anesthesia Complication Comment: Post-operative progress note Anesthesia: Postop Eval II Evaluation Mental status: Awake Pain Level: 0 nausea: No Vomiting: No
--- NOTE | 2025-04-01 15:18 | PCM.POSTANE2 ---
Anesthesia Postop Eval I Sum Postop Eval Completion status Anesthesia document: Postop Eval 1 completed: Yes Anesthesia Postop Eval I Summary Anesthesia Postop Eval I Summary: Anesthesia Postop Eval I: Assessment Summary Airway patent Yes 04/01/25 14:59 WEB CONTENT EXECUTIVE.SKOBY Spontaneous unlabored Yes 04/01/25 14:59 WEB CONTENT EXECUTIVE.VIELKA respirations Mental status Awake,Calm 04/01/25 14:59 WEB CONTENT EXECUTIVE.ABIMBOLAOBSunita nausea No 04/01/25 14:59 WEB CONTENT EXECUTIVE.ABIMBOLAOBSunita Vomiting No 04/01/25 14:59 WEB CONTENT EXECUTIVE.ABIMBOLAOBSunita Anesthesia Postop Eval I: Fluid Summary Crystalloid volume administer 500 04/01/25 14:59 WEB CONTENT EXECUTIVE.SKOBY (ml) Colloids volume administered ( ml) Blood Product volume administered (ml) Total IV fluid infused 500 04/01/25 14:59 WEB CONTENT EXECUTIVE.VIELKA Anesthesia Postop Eval I: Summary Notes Anesthesia Complication No 04/01/25 14:59 WEB CONTENT EXECUTIVE.VIELKA Anesthesia Complication Comment: Post-operative progress note Anesthesia: Postop Eval II Evaluation Mental status: Awake Pain Level: 0 nausea: No Vomiting: No
--- NOTE | 2025-04-02 13:56 | PCM.OPRPT ---
Operative Report (Standard) Operative Information Date of Procedure: 04/01/25 Pre-Operative Diagnosis: missed 9 week size, 12 weeks by SUDEEP Post-Operative Diagnosis: same Surgery/Procedure Performed: Suction D&C naval aircrewman mechanical: No Type of Anesthesia: MAC/Supplemental/Local RN Documented Start/Stop Times: Operation Date: 04/01/25 14:00 Case Time Into Pre-Op 04/01/25 12:31 Out of Pre-Op 04/01/25 14:15 Into Room 04/01/25 14:16 Anesthesia Start 04/01/25 14:29 Procedure Start 04/01/25 14:36 Procedure End 04/01/25 14:42 Anesthesia End 04/01/25 14:46 Out of Room 04/01/25 14:46 Into Recovery 04/01/25 14:48 Into Phase II Recovery 04/01/25 15:22 Out of Recovery 04/01/25 15:22 Out of Phase II 04/01/25 16:06 Procedure Start Time: 14:36 Procedure Stop Time: 14:42 Select all DRAINS/GRAFTS/IMPLANTS that apply: None Estimated Blood Loss: 20 cc Fluids Replaced: 500 cc lR Specimen collected: Yes Description of specimen(s) removed: products of conception sent fresh for Bernice testing Description of surgery: The patient was taken to the operating room where she was prepped and draped in a dorsolithotomy position. A bimanual examination was done and confirmed the uterus to be 9 weeks size and anteverted. A weighted speculum was placed in the vagina and the anterior lip of the cervix was grasped with a single-tooth tenaculum. The cervix was dilated serially. A 10 mm suction curette was placed to the uterine fundus and the suction was created. Several passes were made to remove clots and products of conception. When minimal tissue was returning a gentle sharp curettage was then done of the uterine cavity. The uterine cry was appreciated and another gentle pass was made with the suction curette. At this point there is no active bleeding from the uterus and minimal blood and no further products of conception were removed. The instruments removed from the cervix and the cervix was observed and no active bleeding was identified. The tenaculum was removed off the cervix and hemostasis of the tenaculum site was assured. Made of the instruments removed from the vagina and the vaginal sweep was completed by me. Sponge and needle counts were correct. The patient was taken to the recovery room in stable condition. A brief ultrasound was performed which revealed a bright white endometrial stripe. No active bleeding from the cervical os was noted. Surgical Findings: 9 week size uterus, normal cervix and vagina Complications Complications: No Admit VTE Documentation VTE Present on Admission: No VTE Mechan Device Prophylaxis: SCD's VTE Pharm Prophylaxis ordered?: No
== END 2025-04-01 16:07 | disposition home or self-care (01) ==
LOC: SDC 12:23 → AC 12:25
PROVIDERS: Referring Provider Obstetrics & Gynecology; Visit Provider Obstetrics & Gynecology
PROC: (CPT 59820; principal; 2025-04-01 13:50)
DX: O02.1 Missed abortion (principal); Z87.891 Personal history of nicotine dependence
CPT/HCPCS: 59820; 01965; 88305; J2405